=== PATIENT | male | born 1955 | race Caucasian/White ===

== ENCOUNTER 2018-09-06 11:05 | Inpatient (IN) | payer OTHER ==
[2018-09-06] MEDS ORDERED: Acetaminophen 500 MG TAB ONE (12:16)
[2018-09-06 12:20] LABS: Troponin I 0.047 ng/mL (< 0.028)
[2018-09-06] MEDS ORDERED: Ondansetron ODT 4 MG TAB SL PRN (13:53)
[2018-09-06] MEDS ORDERED: Acetaminophen 325 MG TAB PO PRN (13:53)
[2018-09-06] MEDS ORDERED: Ondansetron HCl/PF 4 MG/2 ML Vial IVP PRN ×2 (13:53→16:11)
[2018-09-06 13:59] VITALS: BMI 27.6
[2018-09-06 15:56] LABS: Troponin I 0.463 ng/mL (< 0.028)
[2018-09-06] MEDS ORDERED: Nitroglycerin 0.4 MG TAB (25 Tab Bottle) SL PRN (16:11)
[2018-09-06] MEDS ORDERED: Ibuprofen 800 MG TAB PO PRN (16:11)
[2018-09-06] MEDS ORDERED: Ondansetron ODT 4 MG TAB PO PRN (16:11)
[2018-09-06] MEDS ORDERED: cloNIDine 0.1 MG TAB PO PRN (16:11)
[2018-09-06] MEDS ORDERED: Meclizine HCl 25 MG TAB PO PRN (16:11)
[2018-09-06] MEDS ORDERED: Acetaminophen 500 MG TAB PO PRN (16:11)
[2018-09-06] MEDS ORDERED: hydrALAZINE 20 MG/ML VIAL SLOW IVP PRN (16:11)
[2018-09-06] MEDS ORDERED: Mag-Al Plus 1200 MG/1200 MG/120 MG/30 ML UDCUP PO PRN (16:12)
[2018-09-06] MEDS ORDERED: Carbidopa/Levodopa 25-250 mg Tablet PO SCH (17:00)
[2018-09-06] MEDS ORDERED: Enoxaparin Sodium 100 MG/ML SYRINGE SC SCH (17:00)
[2018-09-06] MEDS: Ketorolac Tromethamine 30 MG/ML VIAL IVP SCH ×2 (17:49→23:57)
[2018-09-06 18:51] LABS: Troponin I 3.028 ng/mL (< 0.028)
[2018-09-06] MEDS: Pregabalin 50 MG CAP PO SCH (20:19)
[2018-09-06] MEDS: Lisinopril 5 MG TAB PO SCH (20:20)
[2018-09-06] MEDS: Atorvastatin Calcium 10 MG TAB PO SCH (20:20)
[2018-09-06] MEDS: Famotidine 20 MG TAB PO SCH (20:20)
[2018-09-06] MEDS: Carbidopa/Levodopa 25-100 mg Tablet PO SCH (20:22)
[2018-09-06] MEDS: Carbidopa/Levodopa 25-250 mg Tablet PO SCH (20:29)
[2018-09-06] MEDS: Nitroglycerin 2% Ointment 1 INCH/1 GM Packet TOP SCH (21:22)
--- NOTE | 2018-09-06 22:18 | HP ---
DATE OF ADMISSION: 09/06/2018 PRIMARY CARE PHYSICIAN: Dr. Cyndy Hurt. CHIEF COMPLAINT: Chest pain. HISTORY OF PRESENT ILLNESS: This is a 62-year-old male who presents to [facility] in transfer from [facility] after presenting with chest pain. The patient states he woke up in the windows systems engineer hours approximately 2-3 a.m. with substernal ches t pain, pressure-like, rating it 6/10 with constant symptoms. The patient states he has had similar chest pain in the past and was evaluated undergoing a Cardiolite stress test in 2017 to [facility] with negative findings. The patient does admit to history of coronary artery disease, status post coronary artery bypass grafting in 2006. The patient states he has been compliant with his medi cation regimen, but does state generalized weakness over the last 2-3 days with inability to transfer from his bed to wheelchair at the halfway. The patient also admits to recent fall approximatel y 6 days prior to this evaluation while attempting to ambulate while pushing his wheelchair. The pat ient denied any loss of consciousness or head injury, but states he has had multiple falls in the [facility] due to his Parkinson's disease. The patient currently resides in [facility] over the last 3 years. The patient does admit to some reflux symptoms. No change to bowel habits with mild dysuria. No specific fever or cough noted. In the emergency room, the patient underwent general marin luation including metabolic screening showing evidence of elevated troponin ranging from 0.046-0.463. The patient received aspirin, topical nitroglycerin and Tylenol. The patient currently states pers istent chest pressure, centrally located approximately 4-5/10. PAST MEDICAL HISTORY: 1. Coronary artery disease status post coronary artery bypass grafting. 2. Advanced Parkinson's disease, status post neural stimulator. 3. History of frequent falls. 4. Generalized weakness. 5. History of myocardial infarction. 6. Hyperlipidemia. 7. Generalized seizures. 8. Depression. PAST SURGICAL HISTORY: 1. Status post coronary artery bypass grafting x5 vessels in 2006. 2. Status post brain stimulator. 3. Status post pacemaker placement. CURRENT MEDICATIONS: 1. Aspirin 81 mg 1 tab p.o. daily. 2. Lipitor 10 mg p.o. at bedtime. 3. Sinemet-CR 25/100 mg 1 tab p.o. q.4 hours. 4. Vitamin B12 1000 mcg p.o. daily. 5. Folic acid with 0.4 mg p.o. daily. 6. Ibuprofen 800 mg p.o. t.i.d. p.r.n. 7. Meclizine 12.5 mg p.o. daily p.r.n. 8. Olanzapine 2.5 mg p.o. daily. 9. Lyrica 50 mg p.o. b.i.d. ALLERGIES: BENADRYL, MORPHINE SULFATE, SEROQUEL. FAMILY HISTORY: Positive for coronary artery disease in his father. SOCIAL HISTORY: Patient resides in [facility] x3 years. Minimally ambulatory with his tory of repetitive falls. Mobilizes in a wheelchair with self transfers from bed to wheelchair. No current alcohol, tobacco or illicit drug use. REVIEW OF SYSTEMS: The following complete review of systems was negative, unless otherwise mentioned in the HPI or below: Constitutional: Weight loss or gain, ability to conduct usual activities. Sk in: Rash, itching. Eyes: Double vision, pain. ENT/Mouth: Nose bleeding, neck stiffness, pain, te nderness. Cardiovascular: Palpitations, dyspnea on exertion, orthopnea. Respiratory: Shortness of breath, wheezing, cough, hemoptysis, fever or night sweats. Gastrointestinal: Poor appetite, abdom inal pain, heartburn, nausea, vomiting, constipation, or diarrhea. Genitourinary: Urgency, frequenc y, dysuria, nocturia. Musculoskeletal: Pain, swelling. Neurologic/Psychiatric: Anxiety, depressio n. Allergy/Immunologic: Skin rash, bleeding tendency. PHYSICAL EXAMINATION: VITAL SIGNS: Currently, blood pressure 157/78, pulse 62, respiratory rate 24, temperature 98.7 degre es Fahrenheit, O2 saturation 97% on room air. GENERAL APPEARANCE: This is a 62-year-old male, alert and responsive with flat affect, in no acute distress. HEENT: Pupils are equal, round, and reactive to light and accommodation. Extraocular muscles are in tact. No scleral icterus, no conjunctival injection. Nares patent. OP is clear. Teeth in fair rep air. NECK: Supple, no cervical adenopathy, no thyromegaly, no carotid bruits, no JVD appreciated. Cervic al spine with full active and passive range of motion. No meningeal signs noted. CHEST: Lungs are clear to auscultation bilaterally. CARDIOVASCULAR: S1, S2, without noted murmur, rub or gallop. Mild tenderness to palpation in the tao bxiphoid region and anterior rib cage. Left upper chest wall with subcutaneous brain stimulator. ABDOMEN: Rounded, soft, nontender, nondistended. Bowel sounds are positive in all four quadrants. There is no hepatosplenomegaly, no abdominal bruits, no rebound or guarding appreciated. EXTREMITIES: Warm and dry with fair turgor. No clubbing, cyanosis or asymmetric edema appreciated. Pulses palpable distally at the dorsalis pedis, posterior tibial, and popliteal arteries bilaterally . Capillary refill less than 2 seconds. NEUROLOGIC: Flat affect, alert and oriented x3. Slow speech. Cranial nerves II-XII are grossly int act. The patient not observed ambulatory during this exam. PERTINENT LABORATORY AND X-RAY FINDINGS: Basic metabolic profile within normal limits. LFTs within normal limits. Troponin I ranged between 0.046-0.463. BNP 25. CBC showed a white blood cell count of 6.1, hemoglobin 16, hematocrit 48, platelet count 199 with normal differential. Portable chest x- ray dated 09/06/2018 by my interpretation shows no acute cardiopulmonary process. EKG dated 09/06/20 18 by my interpretation shows baseline artifact. Normal R-wave progression noted in the precordial l master. The rest of the EKG uninterpretable. Repeat EKG dated 09/06/2018 by my interpretation shows a sinus mechanism with heart rates in the 50s. Normal R-wave progression noted in the precordial lead s. ST-T wave changes noted in the precordial leads. ASSESSMENT AND PLAN: 1. Non-ST elevation myocardial infarction. The patient will be observed on the telemetry unit. We will initiate aspirin 325 mg daily. Lovenox 1 mg/kg subcutaneously x1 now. Consult Cardiology servi ce for consideration of left heart catheterization. The patient underwent Cardiolite stress testing in 2017 with negative findings. Transdermal nitroglycerin q.8h. Check fasting lipid profile in the a.m. 2. Unstable angina. See #1 above. Continue medical management. Consult Cardiology Service. 3. Coronary artery disease. Prior history of coronary artery bypass grafting x5 vessels. See #1 an d #2 above. Continue Lipitor 10 mg p.o. at bedtime. 4. Advanced Parkinson's disease. Resume home Sinemet and monitor clinically. General fall risk pre cautions. 5. Prophylaxis. Sequential compression devices while in bed. Pepcid 20 mg p.o. b.i.d. 6. Physical therapy evaluation for functional assessment. 7. Code status is full. Surrogate medical decision maker is patient's brother Vincent Shortspike.
[2018-09-06 22:48] LABS: Troponin I 7.644 ng/mL (< 0.028)
[2018-09-07] MEDS: Carbidopa/Levodopa 25-250 mg Tablet PO SCH ×6 (00:08→21:33)
[2018-09-07] MEDS: Carbidopa/Levodopa 25-100 mg Tablet PO SCH ×7 (00:08→22:08)
--- NOTE | 2018-09-07 01:59 | CON ---
DATE OF CONSULTATION: 09/06/2018 PRIMARY CIGARETTE CARTON SEALER: Adrianne Castañeda MD REFERRING PHYSICIAN: Ulises Aguero DO REASON FOR CARDIOLOGY CONSULTATION: [id number] myocardial infarction. HISTORY OF PRESENT ILLNESS: Mr. Cleary is a 62-year-old male with a significant history of Parkinson disease since 2006; coronary artery disease, status post CABG x5 in 2006; hypertension; and seizures. Early this morning, around 3 o'clock, the patient started having the chest pain is "li ke a baseball rolling in his chest" and it was a pressure-like chest discomfort. It was getting wors e and the area was getting bigger since 3 o'clock this morning. At this moment, he is living in [facility], and the patient's nurse noticed that the patient is really pale and find out th e patient's blood pressure was high at 197/95. The nurse attempted to check the patient's vital sign s for several times and the nurse called the attending doctor during that time, and the patient was s uggested to transfer to the emergency department at [place] for further evaluation and treatment . The patient was transferred to the [facility] at [place] for further evaluation and treatme nt. The patient received nitroglycerin in the intermediate, which did not help him much to improve h is symptoms. During the episode, the patient denies shortness of breath, dizziness, lightheadedness, the pain radiating to the left upper extremity, nausea, vomiting, or any other cardiac complaints. During the initial Cardiology consult, the patient continued to complain of pressure-like discomfort in his substernal area although the patient received IV pain medicine and nitroglycerin paste on his chest. The pain does not change with movement, deep breath, or cough. Again, the patient denied any other cardiac complaints at this moment. He had a history of coronary artery disease, status post CABG x5 in 2006. At this moment, the patien t reported that he noted that his dementia was getting worse for the last couple weeks and he cannot remember when the last time he followed up with the rn visiting. He had some device placement in hi s chest according to his chest x-ray, some stimulator, but not the pacemaker; and he recalled that he had a stimulator placement in his chest. PAST MEDICAL HISTORY: Significant for Parkinson's disease since 2006, BPH, erectile dysfunction, cor onary artery disease, CABG x5 in 2006, hyperlipidemia, seizure, hypertension, and major depression. PAST SURGICAL HISTORY: 1. Coronary artery bypass grafting x5 in 2006. He said he had a procedure in the [facility] 2. Brain stimulator implantation, 2 in the head and 1 in his chest; however, those stimulator was re moved from his head shortly after the placement per patient report. PSYCHIATRIC HISTORY: Depression; mood swing; and he sometime has suicide thought, but not at this mo ment. FAMILY HISTORY: Significant for coronary artery disease in his paternal side. The patient's father due to the CA at the age of 47. The patient's mother has a history of Alzheimer. SOCIAL HISTORY: He is . He has one son, who lives well. He denied tobacco, ETOH, or illici t drug abuse. He is living in [facility] at this moment. ALLERGIES: The patient is allergic to BENADRYL, MORPHINE, and SEROQUEL. HOME MEDICATIONS: Ibuprofen 800 mg every 8 hours p.r.n., meclizine 12.5 mg daily as needed, vitamin B12 1000 mcg 1 tablet once a day, Lipitor 10 mg once a day, Lyrica 50 mg twice a day, olanzapine 2.5 mg once a day, folic acid 0.4 mg once a day, carbidopa/levodopa 1 tablet every 4 hours p.o., as pirin 81 mg once a day. REVIEW OF SYSTEMS: Review of systems was negative, unless otherwise mentioned in the HPI or below. The patient complained of inability to clear his throat due to the worsening of the Parkinson's disea se and also constipation. The patient has a stimulator in his brain and chest. He has a history of frequent falls 3-4 times a week couple months ago; however, since the patient's medication was change d, he have not fell since 4 weeks ago. PHYSICAL EXAMINATION: VITAL SIGNS: Blood pressure 157/78, temperature 98.7, pulse 62, respiratory rate 24, O2 saturation 9 7% with room air. GENERAL: The patient is alert, oriented x4, slow to respond, but the patient is able to follow comma nds and answer questions appropriately. HEAD: Atraumatic and normocephalic. They have a scar to the frontal lobe, which is healed. EYES: Extraocular muscle movement intact. ENT: No mass. Nasal and oral mucosa are moist without lesion. NECK: Supple. Normal range of motion. No JVD. RESPIRATORY: Clear to auscultate bilaterally, but diminished at the bases. CARDIOVASCULAR: Regular rhythm and rate. Normal S1, S2. There were no S3, S4. No murmur, hives, t hrill noted. There are 2+ pulses in bilateral lower extremities. No edema. Carotid pulses are pres ent. No bruits or thrill noticed. MUSCULOSKELETAL: The patient is able to move all extremities, but slow to respond. ABDOMEN: Hypoactive bowel sounds. Nontender. No mass to palpate. SKIN: Warm and dry. No erythema, lesion, or bruise noted. NEUROLOGIC: Nonfocal. PSYCHIATRIC: Normal mood. Normal affect. Alert, oriented x4. LABORATORY DATA: WBC 6.1, hemoglobin 6.2, hematocrit 48.4, platelet 199. Sodium 144, potassium 4.3, BUN 19, creatinine 0.86, glucose 144, AST 11, ALT less than 7, CK-MB 0.4. Troponin is 0.047 and 0.4 63. The patient had a stress test done in 01/2017, which shows normal myocardial perfusion study wit h no evidence of ischemia with EF 73%. Chest x-ray was done on 09/06/2018, which showed no acute int rathoracic disease. ASSESSMENT AND PLAN: 1. Elevated troponin level with chest pain. Although, the patient's troponin level is increased to 0.4, the second one; the third one is almost . At this moment, we would like to continue to mon itor. We would like to continue medical treatment only due to the worsening of Parkinson's disease a nd dementia. The patient's 12-lead EKG in the ER shows no ST-segment change or T-wave depression. W e would like to continue to monitor on the telemetry. 2. Coronary artery disease with a history of coronary artery bypass grafting x5 in 2006. The patien t is not on beta vinicio, KEN inhibitor, or ARB at this moment. The beta vinicio is on hold due to b radycardia; however, we might able to like to start KEN inhibitor or ARB for his blood pressure manag ement. 3. Hypertension. We would like to start some blood pressure medicine. I like to start lisinopril i n this patient. 4. Hyperlipidemia. He is on Lipitor 10 mg once a day. 5. Parkinson's disease, at this moment, which is managed by primary care doctor. 6. History of multiple falls. The patient was strongly advised to call for any assistance when the patient liked to get up. Thank you very much for allowing the Cardiology Service to participate in the care of this patient. We will follow along with Patient Care Team and make further recommendations as appropriate.
[2018-09-07 04:21] LABS: Anion Gap 11 mmol/L (10-20); BUN (Urea Nitrogen) 25 mg/dL (8.4-25.7); Calc. Creatinine Clearance 121 mL/min (70-130); Calcium 8.6 mg/dL (7.8-10.44); Carbon Dioxide 25 mmol/L (23-31); Cardiac Risk 4.6 (Less than 4.5); Chloride 110 mmol/L (98-107); Cholesterol 151 mg/dl (< 200 Desired); Estimated GFR-MDRD Greater than 90; Glucose 121 mg/dL (80-115); HDL Cholesterol 33 mg/dL (>60 Neg Risk); LDL Cholesterol, Calculated 99 mg/dL; Potassium 3.8 mmol/L (3.5-5.1); Sodium 142 mmol/L (136-145); Triglycerides 96 mg/dL (Less than 150)
[2018-09-07] MEDS: Ketorolac Tromethamine 30 MG/ML VIAL IVP SCH ×4 (04:28→23:05)
[2018-09-07 04:35] LABS: Free T4 (Free Thyroxine) 0.82 ng/dL (0.70-1.48); Thyroid Stimulating Hormone 0.4934 uIU/mL (0.35-4.94)
[2018-09-07 05:11] LABS: Band 6 % (5-11); Eosinophils 2 % (0-10); Lymphocytes 25 % (21-51); MDiff Complete? YES; Mean Corpuscular Hemoglobin 31.2 pg (27.0-31.0); Mean Corpuscular Volume 94.7 fL (78.0-98.0); Mean Platelet Volume 7.7 fL (7.4-10.4); Monocytes 8 % (0-10); Myelocyte 1 % (0-0); Neutrophil 58 % (42-75); Platelet Count 202 thou/uL (130-400); RBC Distribution Width 12.2 % (11.5-14.5); Red Blood Cell (RBC) Count 4.79 mill/uL (4.70-6.10)
[2018-09-07] MEDS: Nitroglycerin 2% Ointment 1 INCH/1 GM Packet TOP SCH ×3 (06:31→22:04)
--- NOTE | 2018-09-07 08:34 | ADD-CON ---
ADDENDUM Please refer to the notes already dictated by the nurse practitioner, Lara Prasad NP DATE OF CONSULTATION: 09/06/2018 INDICATION FOR CONSULTATION: This is a 62-year-old gentleman with history of coronary artery disease , who underwent bypass surgery in 07/[address] Roland with 5-vessel bypass with a GUTIERREZ to the left anterior descending artery and saphenous vein graft to the ramus, intermediate branch, a saphenous ve in graft to the first obtuse marginal branch or to the obtuse marginal branch of left circumflex unce rtain of which one, and also saphenous vein graft to the distal right coronary artery and also saphen ous vein graft to the RV marginal branch from the right coronary artery. This gentleman has diabetes , hypercholesterolemia. He has been noncompliant with followups. He resides in an assisted living [facility] longterm. He has Parkinson's disease. He has been noncompliant with his followups since even then before his bypass surgery. He has apparently not seen a special needs babysitter except when he has been in the hospital. I believe he was last seen by Dr. German in 2010 when he was in the hospital here a t that time. He has also had some question of some sick sinus syndrome. At this time, he was admitt ed again due to having episodes of chest discomfort. His troponin I on admission was 0.046, but has increased up to 0.047, then again increased to 0.46 and then increased up to 3.028. His BNP is 24. The CPK MB is negative for any evidence of infarction. His EKG is unremarkable for any evidence of a cute changes. He does have Parkinson's disease and baseline is somewhat distorted; however, there is no indication that there is any ST segment elevation. His chest discomfort is improved, he has nitr oglycerin paste in place and he has significant Parkinson's disease. He is able to communicate; andrews robert, but mainly is in a wheelchair at the assisted living facility and takes medications for the Park inson's disease. He also has a brain stimulator which has been implanted. I did not know if it has been checked recently or how the function of this is still working or not. At this time, he said he has minimal chest discomfort, is almost completely resolved. He has nitroglycerin paste on the surfa ce of the skin. PAST MEDICAL HISTORY: Significant for coronary artery disease, bypass surgery, hypercholesterolemia, hypertension, type 2 diabetes. He has had a spider bite in 1993, which required drainage and incisi ons over the next 3 years. He also had a history of cerebral vascular disease. He has Parkinson's d isease. He has type 2 diabetes as well as hypertension. He is noncompliant with his followups in e office due to some of the medications also he has been noncompliant in the past, most likely due to financial restraints. However, at this time, he apparently has Medicaid and should be able to affor d these medications. As far as his social history, family history, review of systems, please refer to the notes dictated b y the nurse practitioner. PHYSICAL EXAMINATION: GENERAL: Reveals a middle-aged gentleman who appears older than his stated age. VITAL SIGNS: His blood pressure is elevated this evening at 157/78, earlier was 187/86. He is afebr ile at 98.7, respiratory rate 24, O2 saturation 97%, heart rate is 62 and regular. HEENT: Shows head to be normocephalic and atraumatic. His carotids are present. CHEST: Clear to auscultation. I did not hear any rales, rhonchi or wheezing. CARDIOVASCULAR: Exam reveals a regular rate and rhythm. There were no gross murmurs. ABDOMEN: Soft and nontender. He has well-healed midline surgical incision over the mid chest area a fter bypass surgery. He also has a well-healed surgical incision over what appears to be the device for his brain stimulation underneath the left infraclavicular area with the wires going up to the lef t neck in the venous system. EXTREMITIES: Show no clubbing, cyanosis or edema. Pedal pulses are present. He has well-healed augusto gical incisions after his saphenous vein graft retrieval. NEUROLOGIC: The patient has obvious Parkinson's disease, has difficulty even to speak and was not ab le to get out of bed for further evaluation. SKIN: Warm and dry. LABORATORY DATA: Shows a creatinine of 0.86 with a BUN 19, potassium was 4.3. Troponin I's are note d above. WBC is 6.1. Hemoglobin 16.2. IMPRESSION: 1. Probable non-ST segment elevation myocardial infarction in elderly gentleman with multiple medica l problems including Parkinson's disease in a patient who is status post bypass surgery, it is quite possible that one of his bypass grafts have occluded or he has further progression of his disease. Kacey mathew has not had followup routinely and has not seen a special needs babysitter for many years. Previously, he was followed by Antonio. I have discussed with him the possibility of proceeding with a cardiac catheterization or medical management. We will continue to follow the enzymes and since his chest pa in is decreased and almost nonexistent now with his other multiple medical problems, we will see whet her or not the enzymes continue to trend upwards or not and if so, he may need eventually undergo [facility]. At this time, we will try to treat him medically. 2. History of hypertension. This is slightly elevated at this time. We may need to readjust his me dications or increase some of the doses of his medications or add further nitrates in this gentleman. I do not see that he has been routinely taking beta blockers and if he is able tolerate this medica tion, we may need to add a beta vinicio for this gentleman. 3. History of diabetes. Blood sugar is slightly elevated, but relatively good control at this time. 4. Hypertension. 5. Hypercholesterolemia. Most likely, he would be able to continue his medications with the atorvas tatin at 10 mg a day. 6. Parkinson's disease. He is to continue his medications and we will see whether or not we can hav e his brain stimulator interrogated. We will be happy to continue to follow this patient with you.
[2018-09-07] MEDS: OLANZapine 2.5 MG TAB PO SCH (08:51)
[2018-09-07] MEDS: Cyanocobalamin (Vitamin B-12) 1,000 MCG TAB PO SCH (08:52)
[2018-09-07] MEDS: Carvedilol 3.125 MG TAB PO SCH ×2 (08:52→16:13)
[2018-09-07] MEDS: Folic Acid 1 MG TAB PO SCH (08:52)
[2018-09-07] MEDS: Aspirin 325 MG TAB PO SCH (08:52)
[2018-09-07] MEDS: Famotidine 20 MG TAB PO SCH ×2 (08:52→22:01)
[2018-09-07] MEDS: Pregabalin 50 MG CAP PO SCH ×2 (08:53→22:03)
--- NOTE | 2018-09-07 10:19 | PDOC.EVN ---
Event Note - Event Note Event Note: discussed with Angel FLYNN, agree with plan.
--- NOTE | 2018-09-07 11:00 | PDOC.CTH ---
Cardiology Progress Note - Subjective Pt. seen and eval. by me. He had another episode this AM of chest discomfort. Now only mild pressure. Troponin I is positive for a NSTEMI. I have discussed the possibility of a cardiac cath. He likely has diffuse disease and likely graft occlusion. It is likely that his disease has progressed since his CABG. I discussed his noncompliance as this will be an issue if any intervention is performed. It may be best to treat him medically. I will resume the lovenox and if he does not stabilize then plan for cardiac cath. - ROS chest pain - Objective Vital Signs Temp Pulse Resp BP Pulse Ox 09/07/18 07:00 97.6 F 54 L 20 116/68 92 L 09/07/18 04:04 97.6 F 58 L 20 98/53 L 94 L 09/06/18 23:22 98.5 F 58 L 12 150/79 H 93 L Weight 192 lb 6.4 oz 09/06/18 09/07/18 09/08/18 06:59 06:59 06:59 Intake Total 1120 Output Total 200 Balance 920 - Physical Examination General/Neuro: alert & oriented x3 Neck: no JVD present Lungs: CTA Heart: RRR Abdomen: NT/ND, soft - Telemetry Telemetry Rhythm: NSR - Labs Result Diagrams: 09/07/18 03:39 09/07/18 03:39 Troponin/CKMB Troponin I 7.644 ng/mL (< 0.028) H* 09/06/18 22:00 Labs: troponin - Assessment/Plan 1.NSTEMI: I will plan for a cardiac cath in AM if he continues to have an increase in chest discomfort and Troponin I. His multiple medical problems and Parkinson's disease are factors to be considered as possible contraindications to a cardiac cath. 2. CAD/ s/p CABG 3. Parkinsom's dz. continue meds. 4. hx. of seizures. 4. Dyslipidemia.
--- NOTE | 2018-09-07 11:04 | PDOC.PN ---
- Subjective Encounter Start Date: 09/07/18 Encounter Start Time: 11:01 Subjective: Patient reported some chest tightness this morning which improved after a -: dose of toradol. He states pain feels like "a fist in his chest pushing on -: his heart." Troponin have been trending up. He denies any further symptoms - Objective Resuscitation Status: Resuscitation Status FULL:Full Resuscitation MAR Reviewed: Yes Vital Signs & Weight: Vital Signs (12 hours) Temp Pulse Resp BP Pulse Ox 09/07/18 07:00 97.6 F 54 L 20 116/68 92 L 09/07/18 04:04 97.6 F 58 L 20 98/53 L 94 L 09/06/18 23:22 98.5 F 58 L 12 150/79 H 93 L Weight Weight 192 lb 6.4 oz I&O: 09/06/18 09/07/18 09/08/18 06:59 06:59 06:59 Intake Total 1120 Output Total 200 Balance 920 Result Diagrams: 09/07/18 03:39 09/07/18 03:39 EKG Reviewed by me: Yes Phys Exam - Physical Examination Constitutional: NAD HEENT: PERRLA, moist MMs, sclera anicteric Neck: no nodes, no JVD, supple Respiratory: no wheezing, no rales, no rhonchi, clear to auscultation bilateral Cardiovascular: RRR, no significant murmur, no rub Gastrointestinal: soft, non-tender, no distention, positive bowel sounds Musculoskeletal: no edema, pulses present Neurological: normal sensation, moves all 4 limbs Dyskinesia noted Lymphatic: no nodes Psychiatric: normal affect, A&O x 3 Skin: no rash, normal turgor, cap refill <2 seconds Dx/Plan (1) Hyperlipidemia Code(s): E78.5 - HYPERLIPIDEMIA, UNSPECIFIED Status: Acute (2) Hypertension Code(s): I10 - ESSENTIAL (PRIMARY) HYPERTENSION Status: Acute (3) Parkinsons disease Code(s): G20 - PARKINSON'S DISEASE Status: Acute (4) NSTEMI (non-ST elevated myocardial infarction) Code(s): I21.4 - NON-ST ELEVATION (NSTEMI) MYOCARDIAL INFARCTION Status: Acute - Plan cont current plan of care, PT/OT, DVT proph w/lovenox Patient changed to inpatient status due to NSTEMI -: Cardiology services following continuing with medical management -: Cardiology plan for possible [facility] 09/08/2018 -: Consult Neurology placed for history of Parkinson disease, order PT/OT -: Symptomatic treatment * .
[2018-09-07] MEDS ORDERED: Enoxaparin Sodium 100 MG/ML SYRINGE SC SCH (11:15)
[2018-09-07] MEDS ORDERED: Communication Order-Pharmacy FS SCH (11:15)
[2018-09-07 11:22] LABS: Troponin I 11.434 ng/mL (< 0.028)
[2018-09-07] MEDS ORDERED: Ziprasidone 20 MG VIAL IM PRN (17:14)
[2018-09-07] MEDS ORDERED: Sterile Water 10 ML VIAL FS PRN (17:14)
--- NOTE | 2018-09-07 21:53 | CON ---
DATE OF CONSULTATION: 09/07/2018 CONSULTING PHYSICIAN: Hospitalist service. IMPRESSION: 1. End-stage Parkinson's disease with secondary dementia and delirium. 2. Acute myocardial infarction. PLAN: 1. Geodon 10-20 mg IM as needed for agitation q.12 hours. 2. Continue prior home medications. Mr. Cleary has been a longtime patient of mine with fairly severe Parkinson's. He has also had a d eep brain stimulator implanted to try to improve his symptoms, which was unsuccessful. He has been o n doses of Sinemet for maintenance of his condition. He has essentially been wheelchair bound for th e most part for the last year. He has been living in a halfway. His delirium flared up the las t time he was hospitalized. He apparently has been delirious again during this hospitalization. He is resting now and has not received any sedation. I would suggest he continue his prior home meds an d we can use Geodon to help manage the agitation until he can return back to the halfway.
[2018-09-07] MEDS: Atorvastatin Calcium 10 MG TAB PO SCH (22:01)
[2018-09-07] MEDS: Enoxaparin Sodium 100 MG/ML SYRINGE SC SCH (22:01)
[2018-09-07] MEDS: Lisinopril 5 MG TAB PO SCH (22:02)
[2018-09-08] MEDS: Nitroglycerin 2% Ointment 1 INCH/1 GM Packet TOP SCH ×4 (01:24→21:53)
[2018-09-08] MEDS: Carbidopa/Levodopa 25-100 mg Tablet PO SCH ×7 (01:28→21:57)
[2018-09-08] MEDS: Cyanocobalamin (Vitamin B-12) 1,000 MCG TAB PO SCH ×2 (05:57→05:58)
[2018-09-08] MEDS: Aspirin 325 MG TAB PO SCH (05:57)
[2018-09-08] MEDS: Famotidine 20 MG TAB PO SCH ×2 (05:57→21:51)
[2018-09-08] MEDS: Folic Acid 1 MG TAB PO SCH (05:57)
[2018-09-08] MEDS: Ketorolac Tromethamine 30 MG/ML VIAL IVP SCH ×3 (05:58→17:06)
[2018-09-08] MEDS: Carvedilol 3.125 MG TAB PO SCH ×2 (05:58→17:06)
[2018-09-08] MEDS: Enoxaparin Sodium 100 MG/ML SYRINGE SC SCH (05:59)
[2018-09-08] MEDS: OLANZapine 2.5 MG TAB PO SCH (05:59)
[2018-09-08] MEDS: Pregabalin 50 MG CAP PO SCH ×2 (06:02→21:52)
--- NOTE | 2018-09-08 07:23 | PDOC.PN ---
- Subjective Encounter Start Date: 09/08/18 Encounter Start Time: 07:21 Subjective: resting comfortably - Objective Resuscitation Status: Resuscitation Status FULL:Full Resuscitation MAR Reviewed: Yes Vital Signs & Weight: Vital Signs (12 hours) Temp Pulse Resp BP Pulse Ox 09/08/18 03:12 97.6 F 57 L 18 138/80 92 L 09/08/18 00:00 97.8 F 51 L 20 152/74 H 94 L 09/07/18 22:02 54 L 09/07/18 20:00 96.7 F L 52 L 20 115/57 L 92 L Weight Weight 192 lb 6.4 oz I&O: 09/07/18 09/08/18 09/09/18 06:59 06:59 06:59 Intake Total 1120 Output Total 200 Balance 920 Result Diagrams: 09/07/18 03:39 09/07/18 03:39 Phys Exam - Physical Examination Neck: no JVD Respiratory: clear to auscultation bilateral Cardiovascular: RRR, no significant murmur Gastrointestinal: soft, non-tender, positive bowel sounds Musculoskeletal: no edema, pulses present Dx/Plan (1) NSTEMI (non-ST elevated myocardial infarction) Code(s): I21.4 - NON-ST ELEVATION (NSTEMI) MYOCARDIAL INFARCTION Status: Acute (2) Hyperlipidemia Code(s): E78.5 - HYPERLIPIDEMIA, UNSPECIFIED Status: Chronic Qualifiers: Hyperlipidemia type: unspecified Qualified Code(s): E78.5 - Hyperlipidemia , unspecified (3) Hypertension Code(s): I10 - ESSENTIAL (PRIMARY) HYPERTENSION Status: Chronic Qualifiers: Hypertension type: essential hypertension Qualified Code(s): I10 - Essential (primary) hypertension (4) Parkinsons disease Code(s): G20 - PARKINSON'S DISEASE Status: Chronic - Plan cardiac cath today, fu postop * .
[2018-09-08] MEDS ORDERED: Iopamidol 370 76% 50 ML VIAL FS ONE (09:29)
[2018-09-08] MEDS ORDERED: Iopamidol 370 76% 100 ML VIAL ONE (09:29)
[2018-09-08 10:09] LABS: Troponin I 22.094 ng/mL (< 0.028)
[2018-09-08 12:21] LABS: Hemoglobin 16.5 g/dL (14.0-18.0); Platelet Count 184 thou/uL (130-400)
[2018-09-08 12:24] LABS: Calc. Creatinine Clearance 122 mL/min (70-130); Estimated GFR-MDRD Greater than 90
--- NOTE | 2018-09-08 14:10 | EKG ---
Test Reason : Blood Pressure : / mmHG Vent. Rate : 055 BPM Atrial Rate : 055 BPM P-R Int : 160 ms QRS Dur : 078 ms QT Int : 450 ms P-R-T Axes : 044 -08 048 degrees QTc Int : 430 ms Sinus bradycardia Abnormal ECG Confirmed by CHRISTOPHER VANCE DO ([id number]), script editor LUIS PERRY ([id number]) on 09/08/2018 2:10:33 PM Referred By: Confirmed By:CHRISTOPHER VANCE DO
[2018-09-08] MEDS ORDERED: Lidocaine 1% (PF) 30 ML VIAL ONE (14:27)
[2018-09-08] MEDS ORDERED: Midazolam HCl 2 mg/2 ml Vial ONE (15:30)
[2018-09-08] MEDS ORDERED: Sodium Chloride 0.9% 200 ML IV SCH (16:53)
[2018-09-08] MEDS ORDERED: Acetaminophen/Codeine 30-300mg Tablet PO PRN ×2 (16:53)
[2018-09-08] MEDS ORDERED: Nitroglycerin 0.4 MG TAB (25 Tab Bottle) SL PRN (16:53)
[2018-09-08] MEDS ORDERED: traMADol HCl 50 MG TAB PO PRN (16:53)
[2018-09-08] MEDS ORDERED: Clopidogrel Bisulfate 75 MG TAB PO SCH ×2 (17:00→18:15)
[2018-09-08] MEDS: Atorvastatin Calcium 10 MG TAB PO SCH (21:51)
[2018-09-08] MEDS: Lisinopril 5 MG TAB PO SCH (21:51)
[2018-09-09] MEDS: Ketorolac Tromethamine 30 MG/ML VIAL IVP SCH ×4 (00:05→17:42)
[2018-09-09] MEDS: Carbidopa/Levodopa 25-100 mg Tablet PO SCH ×6 (02:04→20:24)
[2018-09-09] MEDS: Nitroglycerin 2% Ointment 1 INCH/1 GM Packet TOP SCH (05:37)
--- NOTE | 2018-09-09 07:31 | PDOC.PN ---
- Subjective Encounter Start Date: 09/09/18 Encounter Start Time: 07:30 Subjective: no chest pain, etc - Objective Resuscitation Status: Resuscitation Status FULL:Full Resuscitation MAR Reviewed: Yes Vital Signs & Weight: Vital Signs (12 hours) Temp Pulse Resp BP BP Pulse Ox 09/09/18 04:09 98.9 F 57 L 20 114/78 92 L 09/09/18 00:00 97.6 F 59 L 19 134/67 92 L 09/08/18 21:51 66 134/71 09/08/18 20:00 99 09/08/18 19:48 98.4 F 66 20 153/67 H 100 Weight Weight 191 lb 9.6 oz I&O: 09/08/18 09/09/18 09/10/18 06:59 06:59 06:59 Intake Total 340 Output Total 300 Balance 40 Result Diagrams: 09/08/18 11:46 09/08/18 11:46 Phys Exam - Physical Examination Neck: no JVD Respiratory: clear to auscultation bilateral Cardiovascular: RRR, no significant murmur Gastrointestinal: soft, positive bowel sounds Musculoskeletal: no edema Dx/Plan (1) NSTEMI (non-ST elevated myocardial infarction) Code(s): I21.4 - NON-ST ELEVATION (NSTEMI) MYOCARDIAL INFARCTION Status: Acute (2) Hyperlipidemia Code(s): E78.5 - HYPERLIPIDEMIA, UNSPECIFIED Status: Chronic Qualifiers: Hyperlipidemia type: unspecified Qualified Code(s): E78.5 - Hyperlipidemia , unspecified (3) Hypertension Code(s): I10 - ESSENTIAL (PRIMARY) HYPERTENSION Status: Chronic Qualifiers: Hypertension type: essential hypertension Qualified Code(s): I10 - Essential (primary) hypertension (4) Parkinsons disease Code(s): G20 - PARKINSON'S DISEASE Status: Chronic - Plan discuss Tx with GRETCHEN Brian * .
[2018-09-09] MEDS: Folic Acid 1 MG TAB PO SCH (09:21)
[2018-09-09] MEDS: Clopidogrel Bisulfate 75 MG TAB PO SCH (09:22)
[2018-09-09] MEDS: Carvedilol 3.125 MG TAB PO SCH ×2 (09:22→17:41)
[2018-09-09] MEDS: Pregabalin 50 MG CAP PO SCH ×2 (09:22→20:23)
[2018-09-09] MEDS: Aspirin 325 MG TAB PO SCH (09:22)
[2018-09-09] MEDS: Cyanocobalamin (Vitamin B-12) 1,000 MCG TAB PO SCH (09:23)
[2018-09-09] MEDS: Famotidine 20 MG TAB PO SCH ×2 (09:23→20:23)
[2018-09-09] MEDS: OLANZapine 2.5 MG TAB PO SCH (09:24)
--- NOTE | 2018-09-09 12:36 | PDOC.CTH ---
<Lara Prasad - Last Filed: 09/09/18 12:37> Cardiology Progress Note - Subjective The pt seen and examined. No overnight events. No cardiac complaints. He is confused. - Objective Vital Signs Temp Pulse Resp BP Pulse Ox 09/09/18 08:04 97 F L 53 L 16 105/61 94 L 09/09/18 04:09 98.9 F 57 L 20 114/78 92 L Weight 191 lb 9.6 oz 09/08/18 09/09/18 09/10/18 06:59 06:59 06:59 Intake Total 340 Output Total 300 Balance 40 - Physical Examination Lungs: CTA Heart: RRR Abdomen: soft Extremities: other: (No edema) - Telemetry Telemetry Rhythm: SR 60s - Labs Result Diagrams: 09/08/18 11:46 09/08/18 11:46 Troponin/CKMB Troponin I 22.094 ng/mL (< 0.028) H* 09/08/18 09:30 - Assessment/Plan 1. NSTEMI: S/p LHC on 09/08/18 showed 4/5 graft occluded, 75% stenosis in mid JOAQUIN and patent GUTIERREZ-LAD, EF 35-40% and global hypokinesis. His multiple medical problems and Parkinson's disease are factors to be considered as possible contraindications to CABG. 2. CAD/ s/p CABG: Stop NTG paste and change to Imdur 60mg qd. On Ranexa 500mg BID. 3. HTN: stable 4. Parkinsom's dz: continue meds. Recommend to interrogate his Stimulation device. 5. hx. of seizures. 6. Dyslipidemia: Increase Lipitor from 10mg to 20mg for LDL 99 (should be less than 70) MAR reviewed Review of Systems - Review of Systems Constitutional: reports: no symptoms reported EENTM: reports: no symptoms reported Respiratory: reports: no symptoms reported Cardiac (ROS): reports: no symptoms reported ABD/GI: reports: no symptoms reported : reports: no symptoms reported Musculoskeletal: reports: no symptoms reported <Wilmer Castañeda - Last Filed: 09/09/18 18:48> Cardiology Progress Note - Objective Vital Signs Temp Pulse Resp BP Pulse Ox 09/09/18 15:48 97.6 F 90 16 116/75 94 L 09/09/18 12:03 97.7 F 75 16 117/65 94 L 09/09/18 08:04 97 F L 53 L 16 105/61 94 L Weight 191 lb 9.6 oz 09/08/18 09/09/18 09/10/18 06:59 06:59 06:59 Intake Total 340 800 Output Total 300 400 Balance 40 400 - Labs Result Diagrams: 09/08/18 11:46 09/08/18 11:46 Troponin/CKMB Troponin I 22.094 ng/mL (< 0.028) H* 09/08/18 09:30 - Assessment/Plan Pt. seen and eval. by me. i agree with the A/P by the EDUCATIONAL FUNDRAISING DIRECTOR but he is less confused this PM. He answered my questions appropriately. He denies chest pain. S/P NSTEMI. He has 4/5 bypasses occluded. The GUTIERREZ to the LAD is patent without stenosis. He was started on Ranexa yesterday. He can be d/c'd back to the [facility] tomorrow. In the next few weeks he can be seen in the office / If he is having symptoms I could attemtp to place a stent in the prox. L-Circ and the ramus intermedius.
--- NOTE | 2018-09-09 18:19 | PDOC.EVN ---
Event Note - Event Note Event Note: Discussed with Dr Castañeda, medicine adjustments made, possible DC in am, 09/10
[2018-09-09] MEDS: Atorvastatin Calcium 20 MG TAB PO SCH (20:24)
[2018-09-09] MEDS: Lisinopril 5 MG TAB PO SCH (20:30)
[2018-09-10] MEDS: Ketorolac Tromethamine 30 MG/ML VIAL IVP SCH ×4 (00:05→17:37)
[2018-09-10] MEDS: Carbidopa/Levodopa 25-100 mg Tablet PO SCH ×6 (03:30→21:17)
--- NOTE | 2018-09-10 08:32 | PDOC.CTH ---
<Lara Prasad - Last Filed: 09/10/18 08:30> Cardiology Progress Note - Objective Vital Signs Temp Pulse Resp BP Pulse Ox 09/10/18 02:57 97.9 F 59 L 20 129/62 95 09/09/18 23:53 103/56 L Weight 194 lb 8 oz 09/09/18 09/10/18 09/11/18 06:59 06:59 06:59 Intake Total 340 962 Output Total 300 825 Balance 40 137 - Labs Result Diagrams: 09/08/18 11:46 09/08/18 11:46 Troponin/CKMB Troponin I 22.094 ng/mL (< 0.028) H* 09/08/18 09:30 - Assessment/Plan 1. NSTEMI: S/p LHC on 09/08/18 showed 4/5 graft occluded, 75% stenosis in mid JOAQUIN and patent GUTIERREZ-LAD, EF 35-40% and global hypokinesis. His multiple medical problems and Parkinson's disease are factors to be considered as possible contraindications to CABG. On Ranexa. 2. CAD/ s/p CABG: Stop NTG paste and change to Imdur 60mg qd. On Ranexa 500mg BID. 3. HTN: stable 4. Parkinsom's dz: continue meds. Recommend to interrogate his Stimulation device. 5. hx. of seizures. 6. Dyslipidemia: Increase Lipitor from 10mg to 20mg for LDL 99 (should be less than 70) MAR reviewed * From Cardiac standpoint, the pt is stable to tx back to [facility]. In the next few weeks he can be seen in the office / If he is having symptoms, then possible place a stent in the prox. L-Circ and the ramus intermedius. <Wilmer Castañeda - Last Filed: 09/10/18 19:56> Cardiology Progress Note - Objective Vital Signs Temp Pulse Pulse Pulse Resp BP BP 09/10/18 16:14 97.7 F 62 16 09/10/18 14:00 56 L 58 L 102/59 L 100/55 L 09/10/18 11:15 98.2 F 61 16 09/10/18 08:30 98 F 53 L 14 BP Pulse Ox 09/10/18 16:14 109/59 L 97 09/10/18 14:00 09/10/18 11:15 110/72 95 09/10/18 08:30 104/57 L 98 Weight 194 lb 8 oz 09/09/18 09/10/18 09/11/18 06:59 06:59 06:59 Intake Total 340 962 500 Output Total 300 825 100 Balance 40 137 400 - Labs Result Diagrams: 09/10/18 10:20 09/10/18 10:20 Troponin/CKMB Troponin I 22.094 ng/mL (< 0.028) H* 09/08/18 09:30 - Assessment/Plan pt. seen and eval. by me. I agree with the A/P by the PIANO PROFESSOR. He denies any chest pain. Chest clear. RRR.
[2018-09-10] MEDS: Pregabalin 50 MG CAP PO SCH ×2 (09:47→21:16)
[2018-09-10] MEDS: Folic Acid 1 MG TAB PO SCH (09:47)
[2018-09-10] MEDS: Aspirin 325 MG TAB PO SCH (09:47)
[2018-09-10] MEDS: Clopidogrel Bisulfate 75 MG TAB PO SCH (09:48)
[2018-09-10] MEDS: Cyanocobalamin (Vitamin B-12) 1,000 MCG TAB PO SCH (09:48)
[2018-09-10] MEDS: Famotidine 20 MG TAB PO SCH ×2 (09:48→21:15)
[2018-09-10] MEDS: Carvedilol 3.125 MG TAB PO SCH ×2 (09:48→17:37)
[2018-09-10] MEDS: OLANZapine 2.5 MG TAB PO SCH (09:49)
[2018-09-10 10:29] LABS: Hemoglobin 14.5 g/dL (14.0-18.0); Platelet Count 181 thou/uL (130-400)
--- NOTE | 2018-09-10 17:04 | PDOC.PN ---
- Subjective Encounter Start Date: 09/10/18 Encounter Start Time: 12:30 Subjective: pt up in bed no complains - Objective Resuscitation Status: Resuscitation Status FULL:Full Resuscitation Vital Signs & Weight: Vital Signs (12 hours) Temp Pulse Pulse Pulse Resp BP BP 09/10/18 16:14 97.7 F 62 16 09/10/18 14:00 56 L 58 L 102/59 L 100/55 L 09/10/18 11:15 98.2 F 61 16 09/10/18 08:30 98 F 53 L 14 BP Pulse Ox 09/10/18 16:14 109/59 L 97 09/10/18 14:00 09/10/18 11:15 110/72 95 09/10/18 08:30 104/57 L 98 Weight Weight 194 lb 8 oz I&O: 09/09/18 09/10/18 09/11/18 06:59 06:59 06:59 Intake Total 340 962 Output Total 300 825 Balance 40 137 Result Diagrams: 09/10/18 10:20 09/10/18 10:20 Phys Exam - Physical Examination Neck: no nodes, no JVD, supple, full ROM Respiratory: no wheezing, no rales, no rhonchi, wheezing present, clear to auscultation bilateral Cardiovascular: RRR, no significant murmur, no rub, gallop, irregular Gastrointestinal: soft, non-tender, no distention, positive bowel sounds Dx/Plan (1) NSTEMI (non-ST elevated myocardial infarction) Code(s): I21.4 - NON-ST ELEVATION (NSTEMI) MYOCARDIAL INFARCTION Status: Acute (2) Hyperlipidemia Code(s): E78.5 - HYPERLIPIDEMIA, UNSPECIFIED Status: Chronic Qualifiers: Hyperlipidemia type: unspecified Qualified Code(s): E78.5 - Hyperlipidemia , unspecified (3) Hypertension Code(s): I10 - ESSENTIAL (PRIMARY) HYPERTENSION Status: Chronic Qualifiers: Hypertension type: essential hypertension Qualified Code(s): I10 - Essential (primary) hypertension (4) Parkinsons disease Code(s): G20 - PARKINSON'S DISEASE Status: Chronic - Plan pt has no more chest pain, if ok with cardiology will discharge pt to [facility] -: continue home meds. * . Review of Systems - Review of Systems Respiratory: negative: Cough, Dry, Shortness of Breath, Hemoptysis, SOB with Excertion, Pleuritic Pain, Sputum, Wheezing Cardiovascular: negative: chest pain, palpitations, orthopnea, paroxysmal nocturnal dyspnea, edema, light headedness, other Gastrointestinal: negative: Nausea, Vomiting, Abdominal Pain, Diarrhea, Constipation, Melena, Hematochezia, Other Genitourinary: negative: Dysuria, Frequency, Incontinence, Hematuria, Retention , Other - Medications/Allergies Allergies/Adverse Reactions: Allergies Allergy/AdvReac Type Severity Reaction Status Date / Time diphenhydramine HCl Allergy Verified 02/09/17 05:22 [From Benadryl] morphine Allergy Verified 05/17/15 02:37 quetiapine fumarate Allergy Verified 05/17/15 02:37 [From Seroquel] Medications: Current Medications Acetaminophen (Tylenol) 1,000 mg PO Q6H PRN PRN Reason: Mild Pain (1-3) Acetaminophen/Codeine Phosphate (Tylenol #3) 1 tab PO Q4H PRN PRN Reason: Mild Pain (1-3) Acetaminophen/Codeine Phosphate (Tylenol #3) 2 tab PO Q4H PRN PRN Reason: Moderate Pain (4-6) Al Hydroxide/Mg Hydroxide (Maalox Plus) 30 ml PO Q6H PRN PRN Reason: Heartburn or Indigestion Aspirin (Aspirin) 325 mg PO DAILY [facility] Last Admin: 09/10/18 09:47 Dose: 325 mg Atorvastatin Calcium (Lipitor) 20 mg PO HS [facility] Last Admin: 09/09/18 20:24 Dose: 20 mg Carbidopa/Levodopa (Sinemet 25-100) 1 tab PO 0200,0600,1000,2200 [facility] Last Admin: 09/10/18 09:48 Dose: 1 tab Carbidopa/Levodopa (Sinemet 25-100) 1 tab PO 1400,1800 [facility] Last Admin: 09/10/18 14:47 Dose: 1 tab Carvedilol (Coreg) 3.125 mg PO BID-[facility] Last Admin: 09/10/18 09:48 Dose: 3.125 mg Clonidine (Catapres) 0.1 mg PO Q4H PRN PRN Reason: SBP > ____ Clopidogrel Bisulfate (Plavix) 75 mg PO DAILY [facility] Last Admin: 09/10/18 09:48 Dose: 75 mg Cyanocobalamin (Vitamin B-12) 1,000 mcg PO DAILY [facility] Last Admin: 09/10/18 09:48 Dose: 1,000 mcg Famotidine (Pepcid) 20 mg PO BID [facility] Last Admin: 09/10/18 09:48 Dose: 20 mg Folic Acid (Folvite) 0.5 mg PO DAILY [facility] Last Admin: 09/10/18 09:47 Dose: 0.5 mg Hydralazine HCl (Apresoline) 10 mg SLOW IVP Q4H PRN PRN Reason: SBP > 180 and HR < 70 Isosorbide Mononitrate (Imdur) 60 mg PO DAILY [facility] Last Admin: 09/10/18 09:47 Dose: 60 mg Ketorolac Tromethamine (Toradol) 30 mg IVP Q6HR [facility] Stop: 09/11/18 18:01 Last Admin: 09/10/18 12:57 Dose: Not Given Lisinopril (Zestril) 5 mg PO HS [facility] Last Admin: 09/09/18 20:30 Dose: Not Given Meclizine HCl (Antivert) 12.5 mg PO DAILY PRN PRN Reason: Dizziness Nitroglycerin (Nitrostat) 0.4 mg SL Q5MIN PRN PRN Reason: Chest Pain Nitroglycerin (Nitrostat) 0.4 mg SL Q5MIN PRN PRN Reason: Chest Pain Olanzapine (Zyprexa) 2.5 mg PO DAILY [facility] Last Admin: 09/10/18 09:49 Dose: 2.5 mg Ondansetron HCl (Zofran Odt) 4 mg PO Q6H PRN PRN Reason: Nausea/Vomiting Ondansetron HCl (Zofran) 4 mg IVP Q6H PRN PRN Reason: Nausea/Vomiting Pregabalin (Lyrica) 50 mg PO BID [facility] Last Admin: 09/10/18 09:47 Dose: 50 mg Ranolazine (Ranexa) 500 mg PO BID [facility] Last Admin: 09/10/18 09:48 Dose: 500 mg Sodium Chloride (Flush - Normal Saline) 10 ml IVF Q12HR [facility] Last Admin: 09/10/18 09:46 Dose: 10 ml Sodium Chloride (Flush - Normal Saline) 10 ml IVF PRN PRN PRN Reason: Saline Flush Last Admin: 09/10/18 05:51 Dose: 10 ml Sterile Water (Water For Injection) 1.2 ml FS Q12H PRN PRN Reason: TO RECONSTITUTE ZIPRASIDONE Last Admin: 09/07/18 23:06 Dose: 1.2 ml Tramadol HCl (Ultram) 50 mg PO Q6H PRN PRN Reason: Moderate Pain (4-6) Ziprasidone (Geodon) 10 mg IM Q12H PRN PRN Reason: Agitation Last Admin: 09/07/18 23:06 Dose: 10 mg
[2018-09-10] MEDS: Lisinopril 5 MG TAB PO SCH (21:15)
[2018-09-10] MEDS: Atorvastatin Calcium 20 MG TAB PO SCH (21:15)
[2018-09-11] MEDS: Ketorolac Tromethamine 30 MG/ML VIAL IVP SCH ×4 (00:04→16:50)
[2018-09-11] MEDS: Carbidopa/Levodopa 25-100 mg Tablet PO SCH ×7 (03:13→20:38)
[2018-09-11] MEDS: Pregabalin 50 MG CAP PO SCH ×2 (10:40→20:37)
[2018-09-11] MEDS: Aspirin 325 MG TAB PO SCH (10:42)
[2018-09-11] MEDS: Carvedilol 3.125 MG TAB PO SCH ×2 (10:42→16:48)
[2018-09-11] MEDS: Famotidine 20 MG TAB PO SCH ×2 (10:43→20:36)
[2018-09-11] MEDS: Clopidogrel Bisulfate 75 MG TAB PO SCH (10:43)
[2018-09-11] MEDS: Folic Acid 1 MG TAB PO SCH (10:43)
[2018-09-11] MEDS: Cyanocobalamin (Vitamin B-12) 1,000 MCG TAB PO SCH (10:44)
[2018-09-11] MEDS: OLANZapine 2.5 MG TAB PO SCH (11:05)
--- NOTE | 2018-09-11 11:17 | PDOC.PN ---
- Subjective Encounter Start Date: 09/11/18 Encounter Start Time: 11:30 Subjective: pt up in bed no chest pain - Objective Resuscitation Status: Resuscitation Status FULL:Full Resuscitation Vital Signs & Weight: Vital Signs (12 hours) Temp Pulse Resp BP BP Pulse Ox 09/11/18 09:40 97.5 F L 56 L 18 153/69 H 95 09/11/18 03:39 97.7 F 52 L 20 121/61 94 L Weight Weight 194 lb 8 oz I&O: 09/10/18 09/11/18 09/12/18 06:59 06:59 06:59 Intake Total 962 500 Output Total 825 100 Balance 137 400 Result Diagrams: 09/10/18 10:20 09/10/18 10:20 Phys Exam - Physical Examination Neck: no nodes, no JVD, supple, full ROM Respiratory: no wheezing, no rales, no rhonchi, wheezing present, clear to auscultation bilateral Cardiovascular: RRR, no significant murmur, no rub, gallop, irregular Gastrointestinal: soft, non-tender, no distention, positive bowel sounds Dx/Plan (1) NSTEMI (non-ST elevated myocardial infarction) Code(s): I21.4 - NON-ST ELEVATION (NSTEMI) MYOCARDIAL INFARCTION Status: Acute (2) Hyperlipidemia Code(s): E78.5 - HYPERLIPIDEMIA, UNSPECIFIED Status: Chronic Qualifiers: Hyperlipidemia type: unspecified Qualified Code(s): E78.5 - Hyperlipidemia , unspecified (3) Hypertension Code(s): I10 - ESSENTIAL (PRIMARY) HYPERTENSION Status: Chronic Qualifiers: Hypertension type: essential hypertension Qualified Code(s): I10 - Essential (primary) hypertension (4) Parkinsons disease Code(s): G20 - PARKINSON'S DISEASE Status: Chronic - Plan pt has no chest pain, longterm cannot take the pt until thursday -: will continue home meds * . Review of Systems - Review of Systems Respiratory: negative: Cough, Dry, Shortness of Breath, Hemoptysis, SOB with Excertion, Pleuritic Pain, Sputum, Wheezing Cardiovascular: negative: chest pain, palpitations, orthopnea, paroxysmal nocturnal dyspnea, edema, light headedness, other Gastrointestinal: negative: Nausea, Vomiting, Abdominal Pain, Diarrhea, Constipation, Melena, Hematochezia, Other Genitourinary: negative: Dysuria, Frequency, Incontinence, Hematuria, Retention , Other - Medications/Allergies Allergies/Adverse Reactions: Allergies Allergy/AdvReac Type Severity Reaction Status Date / Time diphenhydramine HCl Allergy Verified 02/09/17 05:22 [From Benadryl] morphine Allergy Verified 05/17/15 02:37 quetiapine fumarate Allergy Verified 05/17/15 02:37 [From Seroquel] Medications: Current Medications Acetaminophen (Tylenol) 1,000 mg PO Q6H PRN PRN Reason: Mild Pain (1-3) Acetaminophen/Codeine Phosphate (Tylenol #3) 1 tab PO Q4H PRN PRN Reason: Mild Pain (1-3) Acetaminophen/Codeine Phosphate (Tylenol #3) 2 tab PO Q4H PRN PRN Reason: Moderate Pain (4-6) Al Hydroxide/Mg Hydroxide (Maalox Plus) 30 ml PO Q6H PRN PRN Reason: Heartburn or Indigestion Aspirin (Aspirin) 325 mg PO DAILY [facility] Last Admin: 09/11/18 10:42 Dose: 325 mg Atorvastatin Calcium (Lipitor) 20 mg PO HS [facility] Last Admin: 09/10/18 21:15 Dose: 20 mg Carbidopa/Levodopa (Sinemet 25-100) 1 tab PO 0200,0600,1000,2200 [facility] Last Admin: 09/11/18 10:43 Dose: 1 tab Carbidopa/Levodopa (Sinemet 25-100) 1 tab PO 1400,1800 [facility] Last Admin: 09/10/18 17:36 Dose: 1 tab Carvedilol (Coreg) 3.125 mg PO BID-[facility] Last Admin: 09/11/18 10:42 Dose: 3.125 mg Clonidine (Catapres) 0.1 mg PO Q4H PRN PRN Reason: SBP > ____ Clopidogrel Bisulfate (Plavix) 75 mg PO DAILY [facility] Last Admin: 09/11/18 10:43 Dose: 75 mg Cyanocobalamin (Vitamin B-12) 1,000 mcg PO DAILY [facility] Last Admin: 09/11/18 10:44 Dose: 1,000 mcg Famotidine (Pepcid) 20 mg PO BID [facility] Last Admin: 09/11/18 10:43 Dose: 20 mg Folic Acid (Folvite) 0.5 mg PO DAILY [facility] Last Admin: 09/11/18 10:43 Dose: 0.5 mg Hydralazine HCl (Apresoline) 10 mg SLOW IVP Q4H PRN PRN Reason: SBP > 180 and HR < 70 Isosorbide Mononitrate (Imdur) 60 mg PO DAILY [facility] Last Admin: 09/11/18 10:43 Dose: 60 mg Ketorolac Tromethamine (Toradol) 30 mg IVP Q6HR [facility] Stop: 09/11/18 18:01 Last Admin: 09/11/18 06:14 Dose: 30 mg Lisinopril (Zestril) 5 mg PO HS [facility] Last Admin: 09/10/18 21:15 Dose: Not Given Meclizine HCl (Antivert) 12.5 mg PO DAILY PRN PRN Reason: Dizziness Nitroglycerin (Nitrostat) 0.4 mg SL Q5MIN PRN PRN Reason: Chest Pain Nitroglycerin (Nitrostat) 0.4 mg SL Q5MIN PRN PRN Reason: Chest Pain Olanzapine (Zyprexa) 2.5 mg PO DAILY [facility] Last Admin: 09/11/18 11:05 Dose: 2.5 mg Ondansetron HCl (Zofran Odt) 4 mg PO Q6H PRN PRN Reason: Nausea/Vomiting Ondansetron HCl (Zofran) 4 mg IVP Q6H PRN PRN Reason: Nausea/Vomiting Pregabalin (Lyrica) 50 mg PO BID [facility] Last Admin: 09/11/18 10:40 Dose: 50 mg Ranolazine (Ranexa) 500 mg PO BID [facility] Last Admin: 09/11/18 10:43 Dose: 500 mg Sodium Chloride (Flush - Normal Saline) 10 ml IVF Q12HR [facility] Last Admin: 09/11/18 10:45 Dose: 10 ml Sodium Chloride (Flush - Normal Saline) 10 ml IVF PRN PRN PRN Reason: Saline Flush Last Admin: 09/11/18 06:21 Dose: 10 ml Sterile Water (Water For Injection) 1.2 ml FS Q12H PRN PRN Reason: TO RECONSTITUTE ZIPRASIDONE Last Admin: 09/07/18 23:06 Dose: 1.2 ml Tramadol HCl (Ultram) 50 mg PO Q6H PRN PRN Reason: Moderate Pain (4-6) Ziprasidone (Geodon) 10 mg IM Q12H PRN PRN Reason: Agitation Last Admin: 09/07/18 23:06 Dose: 10 mg
--- NOTE | 2018-09-11 12:55 | PDOC.CTH ---
Cardiology Progress Note - Subjective The pt seen and examined. No overnight events. No cardiac complaints. He is more alerted today. - Objective Vital Signs Temp Pulse Resp BP BP Pulse Ox 09/11/18 09:40 97.5 F L 56 L 18 153/69 H 95 09/11/18 03:39 97.7 F 52 L 20 121/61 94 L Weight 194 lb 8 oz 09/10/18 09/11/18 09/12/18 06:59 06:59 06:59 Intake Total 962 500 Output Total 825 100 Balance 137 400 - Physical Examination General/Neuro: alert & oriented x3 Neck: no JVD present Lungs: CTA Heart: RRR Abdomen: soft Extremities: other: (No edema) - Telemetry Telemetry Rhythm: SB 50-60s - Labs Result Diagrams: 09/10/18 10:20 09/10/18 10:20 Troponin/CKMB Troponin I 22.094 ng/mL (< 0.028) H* 09/08/18 09:30 - Assessment/Plan 1. NSTEMI: S/p LHC on 09/08/18 showed 4/5 graft occluded, 75% stenosis in mid JOAQUIN and patent GUTIERREZ-LAD, EF 35-40% and global hypokinesis. His multiple medical problems and Parkinson's disease are factors to be considered as possible contraindications to CABG. On Ranexa. 2. CAD/ s/p CABG: Stop NTG paste and change to Imdur 60mg qd. On Ranexa 500mg BID. 3. HTN: stable 4. Parkinsom's dz: continue meds (his Stimulation device has been turned off by Dr Watkins.) 5. hx. of seizures. 6. Dyslipidemia: Increase Lipitor from 10mg to 20mg for LDL 99 (should be less than 70) MAR reviewed * From Cardiac standpoint, the pt is stable to tx back to [place]. In the next few weeks he can be seen in the office / If he is having symptoms, then possible place a stent in the prox. L-Circ and the ramus intermedius. Review of Systems - Review of Systems Constitutional: reports: no symptoms reported EENTM: reports: no symptoms reported Respiratory: reports: no symptoms reported Cardiac (ROS): reports: no symptoms reported ABD/GI: reports: no symptoms reported : reports: no symptoms reported Musculoskeletal: reports: no symptoms reported
[2018-09-11] MEDS: Lisinopril 5 MG TAB PO SCH (20:37)
[2018-09-11] MEDS: Atorvastatin Calcium 20 MG TAB PO SCH (20:37)
[2018-09-12] MEDS: Carbidopa/Levodopa 25-100 mg Tablet PO SCH ×6 (01:13→21:25)
[2018-09-12] MEDS: Clopidogrel Bisulfate 75 MG TAB PO SCH (08:24)
[2018-09-12] MEDS: Famotidine 20 MG TAB PO SCH ×2 (08:24→21:25)
[2018-09-12] MEDS: OLANZapine 2.5 MG TAB PO SCH (08:24)
[2018-09-12] MEDS: Cyanocobalamin (Vitamin B-12) 1,000 MCG TAB PO SCH (08:24)
[2018-09-12] MEDS: Folic Acid 1 MG TAB PO SCH (08:25)
[2018-09-12] MEDS: Carvedilol 3.125 MG TAB PO SCH ×2 (08:25→17:06)
[2018-09-12] MEDS: Aspirin 325 MG TAB PO SCH (08:25)
[2018-09-12] MEDS: Pregabalin 50 MG CAP PO SCH ×2 (08:25→21:25)
--- NOTE | 2018-09-12 09:55 | PDOC.CTH ---
<Lara Prasad - Last Filed: 09/12/18 09:55> Cardiology Progress Note - Subjective The pt seen and examined. No overnight events. No cardiac complaints. He is more alerted today. - Objective Vital Signs Temp Pulse Resp BP Pulse Ox 09/12/18 07:56 97.4 F L 66 18 156/92 H 93 L 09/12/18 04:00 97.6 F 50 L 16 121/67 92 L Weight 194 lb 8 oz 09/11/18 09/12/18 09/13/18 06:59 06:59 06:59 Intake Total 500 Output Total 100 Balance 400 - Physical Examination General/Neuro: alert & oriented x3 Neck: no JVD present Lungs: CTA Heart: RRR Abdomen: soft Extremities: other: (No edema) - Labs Result Diagrams: 09/10/18 10:20 09/10/18 10:20 Troponin/CKMB Troponin I 22.094 ng/mL (< 0.028) H* 09/08/18 09:30 - Assessment/Plan 1. NSTEMI: S/p LHC on 09/08/18 showed 4/5 graft occluded, 75% stenosis in mid JOAQUIN and patent GUTIERREZ-LAD, EF 35-40% and global hypokinesis. His multiple medical problems and Parkinson's disease are factors to be considered as possible contraindications to CABG. On Ranexa. 2. CAD/ s/p CABG: Stop NTG paste and change to Imdur 60mg qd. On Ranexa 500mg BID. 3. HTN: stable 4. Parkinsom's dz: continue meds (his Stimulation device has been turned off by Dr Watkins.) 5. hx. of seizures. 6. Dyslipidemia: Increase Lipitor from 10mg to 20mg for LDL 99 (should be less than 70) MAR reviewed * From Cardiac standpoint, the pt is stable to tx back to [place]. In the next few weeks he can be seen in the office / If he is having symptoms, then possible place a stent in the prox. L-Circ and the ramus intermedius. *Most likely, The pt will d/c to NH on Thursday. Review of Systems - Review of Systems Constitutional: reports: no symptoms reported EENTM: reports: no symptoms reported Respiratory: reports: no symptoms reported Cardiac (ROS): reports: no symptoms reported ABD/GI: reports: no symptoms reported : reports: no symptoms reported Musculoskeletal: reports: no symptoms reported Skin: reports: no symptoms reported <Wilmer Castañeda - Last Filed: 09/12/18 22:12> Cardiology Progress Note - Objective Vital Signs Temp Pulse Resp BP BP BP Pulse Ox 09/12/18 21:25 57 L 145/78 H 09/12/18 20:00 97.5 F L 57 L 18 145/78 H 93 L 09/12/18 11:46 97.8 F 54 L 18 121/70 92 L Weight 194 lb 8 oz 09/11/18 09/12/18 09/13/18 06:59 06:59 06:59 Intake Total 500 800 Output Total 100 Balance 400 800 - Labs Result Diagrams: 09/12/18 10:54 09/12/18 10:54 Troponin/CKMB Troponin I 22.094 ng/mL (< 0.028) H* 09/08/18 09:30 - Assessment/Plan Pt. seen and evaluated by me. I agree with the A/P by the ASSISTANT FINANCE DIRECTOR. We have discussed the pt. and the plan.Chest clear RRR.
[2018-09-12 11:03] LABS: Hemoglobin 13.6 g/dL (14.0-18.0); Platelet Count 199 thou/uL (130-400)
--- NOTE | 2018-09-12 12:59 | PDOC.PN ---
- Subjective Encounter Start Date: 09/12/18 Encounter Start Time: 12:00 Subjective: pt up in bed no complains - Objective Resuscitation Status: Resuscitation Status FULL:Full Resuscitation Vital Signs & Weight: Vital Signs (12 hours) Temp Pulse Resp BP Pulse Ox 09/12/18 11:46 97.8 F 54 L 18 121/70 92 L 09/12/18 07:56 97.4 F L 66 18 156/92 H 93 L 09/12/18 04:00 97.6 F 50 L 16 121/67 92 L Weight Weight 194 lb 8 oz I&O: 09/11/18 09/12/18 09/13/18 06:59 06:59 06:59 Intake Total 500 Output Total 100 Balance 400 Result Diagrams: 09/12/18 10:54 09/12/18 10:54 Phys Exam - Physical Examination Neck: no nodes, no JVD, supple, full ROM Respiratory: no wheezing, no rales, no rhonchi, wheezing present, clear to auscultation bilateral Cardiovascular: RRR, no significant murmur, no rub, gallop, irregular Gastrointestinal: soft, non-tender, no distention, positive bowel sounds Dx/Plan (1) NSTEMI (non-ST elevated myocardial infarction) Code(s): I21.4 - NON-ST ELEVATION (NSTEMI) MYOCARDIAL INFARCTION Status: Acute (2) Hyperlipidemia Code(s): E78.5 - HYPERLIPIDEMIA, UNSPECIFIED Status: Chronic Qualifiers: Hyperlipidemia type: unspecified Qualified Code(s): E78.5 - Hyperlipidemia , unspecified (3) Hypertension Code(s): I10 - ESSENTIAL (PRIMARY) HYPERTENSION Status: Chronic Qualifiers: Hypertension type: essential hypertension Qualified Code(s): I10 - Essential (primary) hypertension (4) Parkinsons disease Code(s): G20 - PARKINSON'S DISEASE Status: Chronic - Plan pt will be tranferred to [place] -: will continue home meds * . Review of Systems - Review of Systems Respiratory: negative: Cough, Dry, Shortness of Breath, Hemoptysis, SOB with Excertion, Pleuritic Pain, Sputum, Wheezing Cardiovascular: negative: chest pain, palpitations, orthopnea, paroxysmal nocturnal dyspnea, edema, light headedness, other Gastrointestinal: negative: Nausea, Vomiting, Abdominal Pain, Diarrhea, Constipation, Melena, Hematochezia, Other Genitourinary: negative: Dysuria, Frequency, Incontinence, Hematuria, Retention , Other - Medications/Allergies Allergies/Adverse Reactions: Allergies Allergy/AdvReac Type Severity Reaction Status Date / Time diphenhydramine HCl Allergy Verified 02/09/17 05:22 [From Benadryl] morphine Allergy Verified 05/17/15 02:37 quetiapine fumarate Allergy Verified 05/17/15 02:37 [From Seroquel] Medications: Current Medications Acetaminophen (Tylenol) 1,000 mg PO Q6H PRN PRN Reason: Mild Pain (1-3) Acetaminophen/Codeine Phosphate (Tylenol #3) 1 tab PO Q4H PRN PRN Reason: Mild Pain (1-3) Acetaminophen/Codeine Phosphate (Tylenol #3) 2 tab PO Q4H PRN PRN Reason: Moderate Pain (4-6) Al Hydroxide/Mg Hydroxide (Maalox Plus) 30 ml PO Q6H PRN PRN Reason: Heartburn or Indigestion Aspirin (Aspirin) 325 mg PO DAILY [facility] Last Admin: 09/12/18 08:25 Dose: 325 mg Atorvastatin Calcium (Lipitor) 20 mg PO HS [facility] Last Admin: 09/11/18 20:37 Dose: 20 mg Carbidopa/Levodopa (Sinemet 25-100) 1 tab PO 0200,0600,1000,2200 [facility] Last Admin: 09/12/18 11:13 Dose: 1 tab Carbidopa/Levodopa (Sinemet 25-100) 1 tab PO 1400,1800 [facility] Last Admin: 09/11/18 16:50 Dose: 1 tab Carvedilol (Coreg) 3.125 mg PO BID-[facility] Last Admin: 09/12/18 08:25 Dose: 3.125 mg Clonidine (Catapres) 0.1 mg PO Q4H PRN PRN Reason: SBP > ____ Clopidogrel Bisulfate (Plavix) 75 mg PO DAILY [facility] Last Admin: 09/12/18 08:24 Dose: 75 mg Cyanocobalamin (Vitamin B-12) 1,000 mcg PO DAILY [facility] Last Admin: 09/12/18 08:24 Dose: 1,000 mcg Famotidine (Pepcid) 20 mg PO BID [facility] Last Admin: 09/12/18 08:24 Dose: 20 mg Folic Acid (Folvite) 0.5 mg PO DAILY [facility] Last Admin: 09/12/18 08:25 Dose: 0.5 mg Hydralazine HCl (Apresoline) 10 mg SLOW IVP Q4H PRN PRN Reason: SBP > 180 and HR < 70 Isosorbide Mononitrate (Imdur) 60 mg PO DAILY [facility] Last Admin: 09/12/18 08:24 Dose: 60 mg Lisinopril (Zestril) 5 mg PO HS [facility] Last Admin: 09/11/18 20:37 Dose: Not Given Meclizine HCl (Antivert) 12.5 mg PO DAILY PRN PRN Reason: Dizziness Nitroglycerin (Nitrostat) 0.4 mg SL Q5MIN PRN PRN Reason: Chest Pain Olanzapine (Zyprexa) 2.5 mg PO DAILY [facility] Last Admin: 09/12/18 08:24 Dose: 2.5 mg Ondansetron HCl (Zofran Odt) 4 mg PO Q6H PRN PRN Reason: Nausea/Vomiting Ondansetron HCl (Zofran) 4 mg IVP Q6H PRN PRN Reason: Nausea/Vomiting Pregabalin (Lyrica) 50 mg PO BID [facility] Last Admin: 09/12/18 08:25 Dose: 50 mg Ranolazine (Ranexa) 500 mg PO BID [facility] Last Admin: 09/12/18 08:24 Dose: 500 mg Sodium Chloride (Flush - Normal Saline) 10 ml IVF Q12HR [facility] Last Admin: 09/12/18 08:25 Dose: 10 ml Sodium Chloride (Flush - Normal Saline) 10 ml IVF PRN PRN PRN Reason: Saline Flush Last Admin: 09/11/18 06:21 Dose: 10 ml Sterile Water (Water For Injection) 1.2 ml FS Q12H PRN PRN Reason: TO RECONSTITUTE ZIPRASIDONE Last Admin: 09/07/18 23:06 Dose: 1.2 ml Tramadol HCl (Ultram) 50 mg PO Q6H PRN PRN Reason: Moderate Pain (4-6) Ziprasidone (Geodon) 10 mg IM Q12H PRN PRN Reason: Agitation Last Admin: 09/07/18 23:06 Dose: 10 mg
[2018-09-12] MEDS ORDERED: Bisacodyl 10 MG SUPP PR SCH (13:15)
[2018-09-12] MEDS: Lisinopril 5 MG TAB PO SCH (21:25)
[2018-09-12] MEDS: Atorvastatin Calcium 20 MG TAB PO SCH (21:25)
[2018-09-13] MEDS: Carbidopa/Levodopa 25-100 mg Tablet PO SCH ×6 (02:16→21:44)
[2018-09-13] MEDS: Aspirin 325 MG TAB PO SCH (08:02)
[2018-09-13] MEDS: Pregabalin 50 MG CAP PO SCH ×2 (08:03→21:44)
[2018-09-13] MEDS: Carvedilol 3.125 MG TAB PO SCH ×2 (08:04→17:12)
--- NOTE | 2018-09-13 08:04 | PDOC.CTH ---
Cardiology Progress Note - Subjective The pt seen and examined. No cardiac complaints. His HR has been 48-low 60s. He denied dizziness or lightheadedness. - Objective Vital Signs Temp Pulse Resp BP BP Pulse Ox 09/13/18 06:57 98.3 F 48 L 16 130/81 95 09/12/18 21:25 57 L 145/78 H Weight 194 lb 8 oz 09/12/18 09/13/18 09/14/18 06:59 06:59 06:59 Intake Total 1040 Balance 1040 - Physical Examination General/Neuro: alert & oriented x3 Neck: no JVD present Lungs: CTA Heart: RRR Abdomen: soft Extremities: other: (No edema) - Labs Result Diagrams: 09/12/18 10:54 09/12/18 10:54 Troponin/CKMB Troponin I 22.094 ng/mL (< 0.028) H* 09/08/18 09:30 - Assessment/Plan 1. NSTEMI: S/p LHC on 09/08/18 showed 4/5 graft occluded, 75% stenosis in mid JOAQUIN and patent GUTIERREZ-LAD, EF 35-40% and global hypokinesis. His multiple medical problems and Parkinson's disease are factors to be considered as possible contraindications to CABG. On Ranexa. 2. CAD/ s/p CABG: stable; On BBlocer, KEN, ASA, Satin, and Imdur 60mg qd. On Ranexa 500mg BID. 3. HTN: stable 4. Parkinsom's dz: managed by PCP/neurology service (his Stimulation device has been turned off by Dr Watkins.) 5. hx. of seizures. 6. Dyslipidemia: Increase Lipitor from 10mg to 20mg for LDL 99 (should be less than 70) MAR reviewed * From Cardiac standpoint, the pt is stable to tx back to [place]. In the next few weeks he can be seen in the office. If he is having any cardiac symptoms, then possible place a stent in the prox. L-Circ and the ramus intermedius. *Most likely, The pt will d/c to [place] today. Review of Systems - Review of Systems Constitutional: reports: no symptoms reported EENTM: reports: no symptoms reported Respiratory: reports: no symptoms reported Cardiac (ROS): reports: no symptoms reported ABD/GI: reports: no symptoms reported : reports: no symptoms reported Musculoskeletal: reports: no symptoms reported
[2018-09-13] MEDS: Famotidine 20 MG TAB PO SCH ×2 (08:05→21:43)
[2018-09-13] MEDS: Folic Acid 1 MG TAB PO SCH (08:05)
[2018-09-13] MEDS: Cyanocobalamin (Vitamin B-12) 1,000 MCG TAB PO SCH (08:05)
[2018-09-13] MEDS: Clopidogrel Bisulfate 75 MG TAB PO SCH (08:05)
[2018-09-13] MEDS: Bisacodyl 10 MG SUPP PR SCH (08:08)
[2018-09-13] MEDS: OLANZapine 2.5 MG TAB PO SCH (09:03)
[2018-09-13] MEDS ORDERED: Bisacodyl 10 MG SUPP PR SCH (15:45)
--- NOTE | 2018-09-13 16:19 | RAD ---
ABDOMEN ONE VIEW: HISTORY: Abdomen pain. FINDINGS: Large amount of stool throughout the colon and rectum. Small bowel gas pattern is nonspecific. No r adiopaque foreign bodies. There is calcification over the arterial structures. IMPRESSION: 1. Constipation. 2. Atherosclerosis. POS: SKY
[2018-09-13] MEDS ORDERED: Magnesium Citrate 300 ML BOT PO SCH (17:45)
--- NOTE | 2018-09-13 18:24 | PDOC.PN ---
- Subjective Encounter Start Date: 09/13/18 Encounter Start Time: 12:30 Subjective: pt up in bed feels constipated - Objective Resuscitation Status: Resuscitation Status FULL:Full Resuscitation Vital Signs & Weight: Vital Signs (12 hours) Temp Pulse Resp BP BP Pulse Ox 09/13/18 10:52 58 L 14 118/70 98 09/13/18 06:57 98.3 F 48 L 16 130/81 95 Weight Weight 194 lb 8 oz I&O: 09/12/18 09/13/18 09/14/18 06:59 06:59 06:59 Intake Total 1040 Balance 1040 Result Diagrams: 09/12/18 10:54 09/12/18 10:54 Phys Exam - Physical Examination Neck: no nodes, no JVD, supple, full ROM Respiratory: no wheezing, no rales, no rhonchi, wheezing present, clear to auscultation bilateral Cardiovascular: RRR, no significant murmur, no rub, gallop, irregular Gastrointestinal: soft, non-tender, no distention, positive bowel sounds Dx/Plan (1) NSTEMI (non-ST elevated myocardial infarction) Code(s): I21.4 - NON-ST ELEVATION (NSTEMI) MYOCARDIAL INFARCTION Status: Acute (2) Hyperlipidemia Code(s): E78.5 - HYPERLIPIDEMIA, UNSPECIFIED Status: Chronic Qualifiers: Hyperlipidemia type: unspecified Qualified Code(s): E78.5 - Hyperlipidemia , unspecified (3) Hypertension Code(s): I10 - ESSENTIAL (PRIMARY) HYPERTENSION Status: Chronic Qualifiers: Hypertension type: essential hypertension Qualified Code(s): I10 - Essential (primary) hypertension (4) Parkinsons disease Code(s): G20 - PARKINSON'S DISEASE Status: Chronic - Plan detention had electrical issues and will not take pt today -: kub done pt has significant stool will give mag citrate. * . Review of Systems - Review of Systems Cardiovascular: negative: chest pain, palpitations, orthopnea, paroxysmal nocturnal dyspnea, edema, light headedness, other Gastrointestinal: negative: Nausea, Vomiting, Abdominal Pain, Diarrhea, Constipation, Melena, Hematochezia, Other Genitourinary: negative: Dysuria, Frequency, Incontinence, Hematuria, Retention , Other - Medications/Allergies Allergies/Adverse Reactions: Allergies Allergy/AdvReac Type Severity Reaction Status Date / Time diphenhydramine HCl Allergy Verified 03/20/17 05:22 [From Benadryl] morphine Allergy Verified 05/17/15 02:37 quetiapine fumarate Allergy Verified 05/17/15 02:37 [From Seroquel] Medications: Current Medications Acetaminophen (Tylenol) 1,000 mg PO Q6H PRN PRN Reason: Mild Pain (1-3) Acetaminophen/Codeine Phosphate (Tylenol #3) 1 tab PO Q4H PRN PRN Reason: Mild Pain (1-3) Acetaminophen/Codeine Phosphate (Tylenol #3) 2 tab PO Q4H PRN PRN Reason: Moderate Pain (4-6) Al Hydroxide/Mg Hydroxide (Maalox Plus) 30 ml PO Q6H PRN PRN Reason: Heartburn or Indigestion Aspirin (Aspirin) 325 mg PO DAILY [facility] Last Admin: 09/13/18 08:02 Dose: 325 mg Atorvastatin Calcium (Lipitor) 20 mg PO HS [facility] Last Admin: 09/12/18 21:25 Dose: 20 mg Bisacodyl (Dulcolax) 10 mg OR DAILY [facility] Last Admin: 09/13/18 08:08 Dose: 10 mg Bisacodyl (Dulcolax) 10 mg OR NOW [facility] Stop: 09/14/18 15:46 Carbidopa/Levodopa (Sinemet 25-100) 1 tab PO 0200,0600,1000,2200 [facility] Last Admin: 09/13/18 10:09 Dose: 1 tab Carbidopa/Levodopa (Sinemet 25-100) 1 tab PO 1400,1800 [facility] Last Admin: 09/13/18 14:40 Dose: Not Given Carvedilol (Coreg) 3.125 mg PO BID[facility] Last Admin: 09/13/18 17:12 Dose: Not Given Clonidine (Catapres) 0.1 mg PO Q4H PRN PRN Reason: SBP > ____ Clopidogrel Bisulfate (Plavix) 75 mg PO DAILY [facility] Last Admin: 09/13/18 08:05 Dose: 75 mg Cyanocobalamin (Vitamin B-12) 1,000 mcg PO DAILY [facility] Last Admin: 09/13/18 08:05 Dose: 1,000 mcg Famotidine (Pepcid) 20 mg PO BID [facility] Last Admin: 09/13/18 08:05 Dose: 20 mg Folic Acid (Folvite) 0.5 mg PO DAILY [facility] Last Admin: 09/13/18 08:05 Dose: 0.5 mg Hydralazine HCl (Apresoline) 10 mg SLOW IVP Q4H PRN PRN Reason: SBP > 180 and HR < 70 Isosorbide Mononitrate (Imdur) 60 mg PO DAILY [facility] Last Admin: 09/13/18 08:05 Dose: 60 mg Lisinopril (Zestril) 5 mg PO HS [facility] Last Admin: 09/12/18 21:25 Dose: 5 mg Magnesium Citrate (Citrate Of Magnesia 300 Ml Bot) 300 ml PO NOW [facility] Stop: 09/13/18 19:00 Meclizine HCl (Antivert) 12.5 mg PO DAILY PRN PRN Reason: Dizziness Nitroglycerin (Nitrostat) 0.4 mg SL Q5MIN PRN PRN Reason: Chest Pain Olanzapine (Zyprexa) 2.5 mg PO DAILY [facility] Last Admin: 09/13/18 09:03 Dose: 2.5 mg Ondansetron HCl (Zofran Odt) 4 mg PO Q6H PRN PRN Reason: Nausea/Vomiting Ondansetron HCl (Zofran) 4 mg IVP Q6H PRN PRN Reason: Nausea/Vomiting Pregabalin (Lyrica) 50 mg PO BID [facility] Last Admin: 09/13/18 08:03 Dose: 50 mg Ranolazine (Ranexa) 500 mg PO BID [facility] Last Admin: 09/13/18 08:04 Dose: 500 mg Sodium Chloride (Flush - Normal Saline) 10 ml IVF Q12HR [facility] Last Admin: 09/13/18 08:06 Dose: 10 ml Sodium Chloride (Flush - Normal Saline) 10 ml IVF PRN PRN PRN Reason: Saline Flush Last Admin: 09/11/18 06:21 Dose: 10 ml Sterile Water (Water For Injection) 1.2 ml FS Q12H PRN PRN Reason: TO RECONSTITUTE ZIPRASIDONE Last Admin: 09/07/18 23:06 Dose: 1.2 ml Tramadol HCl (Ultram) 50 mg PO Q6H PRN PRN Reason: Moderate Pain (4-6) Ziprasidone (Geodon) 10 mg IM Q12H PRN PRN Reason: Agitation Last Admin: 09/07/18 23:06 Dose: 10 mg
[2018-09-13] MEDS: Atorvastatin Calcium 20 MG TAB PO SCH (21:43)
[2018-09-13] MEDS: Lisinopril 5 MG TAB PO SCH (21:43)
[2018-09-14] MEDS: Carbidopa/Levodopa 25-100 mg Tablet PO SCH ×3 (01:47→08:21)
[2018-09-14 07:24] VITALS: BP 136/79; TEMP 97.6
[2018-09-14] MEDS: Carvedilol 3.125 MG TAB PO SCH (07:56)
[2018-09-14] MEDS: Aspirin 325 MG TAB PO SCH (08:21)
[2018-09-14] MEDS: Folic Acid 1 MG TAB PO SCH (08:22)
[2018-09-14] MEDS: Clopidogrel Bisulfate 75 MG TAB PO SCH (08:22)
[2018-09-14] MEDS: Cyanocobalamin (Vitamin B-12) 1,000 MCG TAB PO SCH (08:22)
[2018-09-14] MEDS: Famotidine 20 MG TAB PO SCH (08:23)
[2018-09-14] MEDS: Pregabalin 50 MG CAP PO SCH (08:24)
[2018-09-14] MEDS: Bisacodyl 10 MG SUPP PR SCH (08:25)
[2018-09-14] MEDS: OLANZapine 2.5 MG TAB PO SCH (08:55)
[2018-09-14 11:14] LABS: Hemoglobin 14.2 g/dL (14.0-18.0); Platelet Count 219 thou/uL (130-400)
--- NOTE | 2018-09-14 12:14 | PDOC.CTH ---
Cardiology Progress Note - Subjective the pt seen and examined. No overnight events. No cardiac complaints. - Objective Vital Signs Temp Pulse Resp BP Pulse Ox 09/14/18 07:22 97.6 F 50 L 14 136/79 93 L Weight 194 lb 8 oz 09/13/18 09/14/18 09/15/18 06:59 06:59 06:59 Intake Total 1040 405 Output Total 350 Balance 1040 55 - Physical Examination General/Neuro: other: (intermittent confused) Lungs: CTA Heart: RRR Abdomen: soft Extremities: other: (No edema) - Labs Result Diagrams: 09/14/18 11:02 09/14/18 11:02 Troponin/CKMB Troponin I 22.094 ng/mL (< 0.028) H* 09/08/18 09:30 - Assessment/Plan 1. NSTEMI: S/p LHC on 09/08/18 showed 4/5 graft occluded, 75% stenosis in mid JOAQUIN and patent GUTIERREZ-LAD, EF 35-40% and global hypokinesis. His multiple medical problems and Parkinson's disease are factors to be considered as possible contraindications to CABG. On Ranexa. 2. CAD/ s/p CABG: stable; On BBlocer, KEN, ASA, Satin, and Imdur 60mg qd. On Ranexa 500mg BID. 3. HTN: stable 4. Parkinsom's dz: managed by PCP/neurology service (his Stimulation device has been turned off by Dr Watkins.) 5. hx. of seizures. 6. Dyslipidemia: Increase Lipitor from 10mg to 20mg for LDL 99 (should be less than 70) MAR reviewed * From Cardiac standpoint, the pt is stable to tx back to [place]. In the next few weeks he can be seen in the office. If he is having any cardiac symptoms, then possible place a stent in the prox. L-Circ and the ramus intermedius. *Most likely, The pt will d/c to [place] today. Review of Systems - Review of Systems Constitutional: reports: no symptoms reported EENTM: reports: no symptoms reported Respiratory: reports: no symptoms reported Cardiac (ROS): reports: no symptoms reported ABD/GI: reports: no symptoms reported : reports: no symptoms reported Musculoskeletal: reports: no symptoms reported
--- NOTE | 2018-09-14 19:04 | DIS ---
DATE OF DISCHARGE: 09/14/2018 DISCHARGE DISPOSITION: USP. FOLLOWUP: Follow up with primary care physician, Dr. Cyndy Hurt at the nursing facility. ALLERGIES: The patient is allergic to MORPHINE, SEROQUEL and BENADRYL. DISCHARGE MEDICATIONS: Aspirin 325 mg daily, Lipitor 20 mg at bedtime, carvedilol 3.125 mg b.i.d., P lavix 75 mg daily, Imdur 60 mg daily, lisinopril 5 mg at bedtime, Ranexa 500 mg twice a day. All oth er home medications were left unchanged. INPATIENT CONSULTANTS: Cardiology, Dr. Adrianne Castañeda. DIAGNOSTIC TESTS: 1. Cardiac catheterization on 09/08/2018 showed 100% mid LAD stenosis, 80% proximal circumflex steno sis, 100% obtuse marginal stenosis, 75% mid ramus stenosis, 100% mid RCA stenosis. 4 out of 5 grafts were occluded. GUTIERREZ to LAD was patent. Ejection fraction was 35%-40% with global hypokinesis. 2. Chest x-ray on admission was negative for infiltrate. 3. Abdominal x-ray on 09/13/2018, was consistent with constipation. 4. TSH 0.49 with normal free T4. 5. Cholesterol 151, LDL 99, HDL 33. BRIEF HOSPITAL COURSE: The patient is a 62-year-old white male currently residing at [facility] with coronary artery disease status post CABG, advanced Parkinson disease, frequent falls, hyperten rajesh, and hyperlipidemia, presented to the hospital with chest discomfort. His maximum troponin this admission was 22.0. The patient was seen by Cardiology, Dr. Castañeda. He underwent cardiac catheteriza tion as discussed above. Medical therapy was recommended. His medications have been optimized per C ardiology. He is chest pain free. He had some issues with constipation that resolved on the day of discharge. He appears stable for discharge. FINAL DIAGNOSES: 1. Non-ST elevation myocardial infarction. 2. Coronary artery disease, status post CABG in the past. 3. Hypertension. 4. Hyperlipidemia. 5. Advanced Parkinson disease. 6. History of seizures. 7. Dyslipidemia. 8. Constipation, resolved. 9. Chronic kidney disease stage 2. 10. History of frequent falls. 11. Physical deconditioning. Total time coordinating the discharge of this patient was 38 minutes.
== END 2018-09-14 13:31 | DRG 281 ==
LOC: ERS 11:05 → 2SW 12:26 → OBSVTOIN 13:45 → 2SW 13:45 → 2NO 09-07 12:09 → T4-A 09-11 13:05
PROVIDERS: ADMIT Family Medicine; ATTEND Family Medicine
PROC: 4A023N7 Measurement of Cardiac Sampling and Pressure, Left Heart, Percutaneous Approach (ICD-10-PCS; principal; 2018-09-08)
PROC: B2131ZZ Fluoroscopy of Multiple Coronary Artery Bypass Grafts using Low Osmolar Contrast (ICD-10-PCS; 2018-09-08)
PROC: B2111ZZ Fluoroscopy of Multiple Coronary Arteries using Low Osmolar Contrast (ICD-10-PCS; 2018-09-08)
PROC: B2151ZZ Fluoroscopy of Left Heart using Low Osmolar Contrast (ICD-10-PCS; 2018-09-08)
DX: I21.4 Non-ST elevation (NSTEMI) myocardial infarction (principal); T82.858A Stenosis of other vascular prosthetic devices, implants and grafts, initial encounter; G20 Parkinson's disease; E78.5 Hyperlipidemia, unspecified; F32.9 Major depressive disorder, single episode, unspecified; I25.110 Atherosclerotic heart disease of native coronary artery with unstable angina pectoris; K59.00 Constipation, unspecified; E11.22 Type 2 diabetes mellitus with diabetic chronic kidney disease; F02.80 Dementia in other diseases classified elsewhere, unspecified severity, without behavioral disturbance, psychotic disturbance, mood disturbance, and anxiety; N40.0 Benign prostatic hyperplasia without lower urinary tract symptoms; N52.9 Male erectile dysfunction, unspecified; I12.9 Hypertensive chronic kidney disease with stage 1 through stage 4 chronic kidney disease, or unspecified chronic kidney disease; N18.2 Chronic kidney disease, stage 2 (mild); Z79.82 Long term (current) use of aspirin; Z91.81 History of falling; I25.2 Old myocardial infarction; Z95.1 Presence of aortocoronary bypass graft; Z95.0 Presence of cardiac pacemaker; Z82.49 Family history of ischemic heart disease and other diseases of the circulatory system
CPT/HCPCS: 36415; 74018; 80048; 80061; 82565; 84439; 84443; 84484; 85007; 85014; 85018; 85027; 85049; 93005; 93459; 93567; 99152; 99153; A4216; C1769; G8978-GP-CL; G8979-GP-CJ; J1644; J1650; J1885; J2001; J2250; J3486; J7050

== ENCOUNTER 2018-09-30 13:52 | Inpatient (IN) | payer OTHER ==
[2018-09-30] MEDS ORDERED: Nitroglycerin 0.4 MG TAB (25 Tab Bottle) PO PRN (15:11)
[2018-09-30] MEDS ORDERED: Zolpidem Tartrate 5 MG TAB PO PRN (15:11)
[2018-09-30] MEDS ORDERED: Ondansetron PF 4 MG/2 ML Vial IVP PRN (15:11)
[2018-09-30 15:30] LABS: CKMB 4.9 ng/mL (0-6.6); Troponin I 0.087 ng/mL (< 0.028)
[2018-09-30] MEDS ORDERED: CARB PO SCH (17:00)
[2018-09-30] MEDS ORDERED: LEVO PO SCH (17:00)
[2018-09-30 17:36] VITALS: BMI 27.6
[2018-09-30] MEDS: Carvedilol 3.125 MG TAB PO SCH (17:49)
[2018-09-30 19:37] LABS: Troponin I 0.113 ng/mL (< 0.028)
[2018-09-30] MEDS: Atorvastatin Calcium 20 MG TAB PO SCH (20:35)
[2018-09-30] MEDS: Nitroglycerin 2% Ointment 1 INCH/1 GM Packet TOP SCH (20:35)
[2018-09-30] MEDS: Lisinopril 5 MG TAB PO SCH (20:35)
[2018-09-30 21:33] LABS: Troponin I 0.103 ng/mL (< 0.028)
[2018-10-01 05:24] LABS: #Basophils 0.1 thou/uL (0.0-0.2); #Eosinphils 0.3 thou/uL (0.0-0.7); #Lymphocytes 1.9 thou/uL (1.20-3.40); #Monocytes 0.5 thou/uL (0.11-0.59); #Neutrophils 2.9 thou/uL (1.40-6.50); %Basophils 1.3 % (0.0-1.0); %Eosinophils 5.9 % (0.0-10.0); %Monocytes 9.3 % (0.0-10.0); %Neutrophils 50.5 % (42.0-75.0); Hemoglobin 14.5 g/dL (14.0-18.0); Mean Corpuscular HGB CONC 31.8 g/dL (32.0-36.0); Mean Corpuscular Hemoglobin 30.6 pg (27.0-31.0); Mean Corpuscular Volume 96.3 fL (78.0-98.0); Mean Platelet Volume 8.2 fL (7.4-10.4); Platelet Count 184 thou/uL (130-400); RBC Distribution Width 12.7 % (11.5-14.5); Red Blood Cell (RBC) Count 4.74 mill/uL (4.70-6.10); White Blood Cell (WBC) Count 5.8 thou/uL (4.8-10.8)
[2018-10-01 05:44] LABS: Anion Gap 10 mmol/L (10-20); BUN (Urea Nitrogen) 20 mg/dL (8.4-25.7); Calc. Creatinine Clearance 111 mL/min (70-130); Carbon Dioxide 30 mmol/L (23-31); Chloride 110 mmol/L (98-107); Estimated GFR-MDRD Greater than 90; Glucose 94 mg/dL (80-115); Potassium 4.1 mmol/L (3.5-5.1); Sodium 146 mmol/L (136-145)
[2018-10-01] MEDS: Nitroglycerin 2% Ointment 1 INCH/1 GM Packet TOP SCH ×3 (06:03→21:08)
--- NOTE | 2018-10-01 07:07 | PDOC.PN ---
- Subjective Encounter Start Date: 10/01/18 Encounter Start Time: 07:05 Subjective: no chestpain since about 4pm yesterday - Objective Resuscitation Status: Resuscitation Status DNR:Do Not Resuscitate MAR Reviewed: Yes Vital Signs & Weight: Vital Signs (12 hours) Temp Pulse Resp BP Pulse Ox 10/01/18 04:00 97.3 F L 55 L 20 157/77 H 92 L 09/30/18 20:35 97.9 F 94 58 H 138/74 94 L Weight Weight 191 lb I&O: 09/30/18 10/01/18 10/02/18 06:59 06:59 06:59 Intake Total 120 Output Total 700 Balance -580 Result Diagrams: 10/01/18 04:37 10/01/18 04:37 Phys Exam - Physical Examination Neck: no JVD Respiratory: clear to auscultation bilateral Cardiovascular: RRR, no significant murmur Gastrointestinal: soft, positive bowel sounds Musculoskeletal: edema present Dx/Plan (1) CAD (coronary artery disease) of bypass graft Code(s): I25.810 - ATHEROSCLEROSIS OF CABG W/O ANGINA PECTORIS Status: Acute Qualifiers: [place] vs. transplanted heart: [place] heart Associated angina: with unstable angina Qualified Code(s): I25.700 - Atherosclerosis of coronary artery bypass graft(s), unspecified, with unstable angina pectoris (2) NSTEMI (non-ST elevated myocardial infarction) Code(s): I21.4 - NON-ST ELEVATION (NSTEMI) MYOCARDIAL INFARCTION Status: Acute (3) Hyperlipidemia Code(s): E78.5 - HYPERLIPIDEMIA, UNSPECIFIED Status: Chronic Qualifiers: (4) Hypertension Code(s): I10 - ESSENTIAL (PRIMARY) HYPERTENSION Status: Chronic Qualifiers: Hypertension type: essential hypertension (5) Parkinsons disease Code(s): G20 - PARKINSON'S DISEASE Status: Chronic - Plan cont current meds, discuss with cardiology * .
--- NOTE | 2018-10-01 07:43 | HP ---
PRIMARY CARE PROVIDER: Dr. Cyndy Hurt HISTORY OF PRESENT ILLNESS: [facility] for chest pain. I dictated a history and physical on admission. It is not on the chart . Out of necessity I am dictating a second one since it is a day later, details may be omitted since my memory of what I dictated yesterday may not be complete. The patient with recent non-ST elevatio n ND, who underwent cardiac catheterization and was found to have 4/5 grafts from previous coronary a rtery bypass graft occluded, to have major disease in poarch vessels who was recommended for medical therapy only. Awoke on the morning of admission with pressure-like chest pain that came and went dur ing the day. He was referred to [facility] after a stop in [place]. His chest p ain without radiation. Minimal shortness of breath, no sweats, nausea. He was noted to have an elev ated troponin. [facility] PAST MEDICAL HISTORY: Coronary artery disease with coronary artery bypass graft, non-ST elevation ND 3 weeks ago with cardiac catheterization, advanced Parkinson's disease, status post neuro stimulator , hyperlipidemia, hypertension, seizure disorder, depression. PAST SURGICAL HISTORY: Status post coronary artery bypass graft in 2006, status post brain stimulato r for Parkinson's, status post pacemaker placement. CURRENT MEDICATIONS: At the time of admission. Folic acid 0.4 mg a day, Imdur 60 mg a day, Coreg 3. 125 mg b.i.d., Plavix 75 mg a day, olanzapine 2.5 mg a day, Lyrica 50 mg twice a day, Lipitor 20 mg a day, lisinopril 5 mg a day, meclizine 12.5 mg p.o. daily p.r.n., Ranexa 500 mg p.o. b.i.d., Sinemet 25/250 one q.4h. p.r.n., aspirin 325 mg a day, Zofran oral dissolving tablet 4 mg p.o. q.6h. p.r.n. ALLERGIES: BENADRYL, MORPHINE and SEROQUEL. FAMILY HISTORY: Positive for coronary artery disease in his father. SOCIAL HISTORY: Resides at [facility], minimally ambulatory with a wheelchair. No cur rent alcohol, tobacco or illicit drug use. CODE STATUS: In discussion of resuscitation status, he has elected to be DNR. When questioned about surrogate decision makers, he stated he had siblings, but declined to make any of them a surrogate d ecision maker at this time. REVIEW OF SYSTEMS: GENERAL: Headaches and dizziness in the morning, relates to possible medications in the morning. EYES: Poor vision. No double vision, flashing lights. ENT: No ear pain or drainage. No nasal bleeding. No trouble swallowing. CARDIAC: The aforementioned chest pain, some dyspnea on exertion, no orthopnea. RESPIRATORY: No wheezing, asthma, occasional cough. GASTROINTESTINAL: No nausea, vomiting, abdominal pain, diarrhea or constipation. GENITOURINARY: No hematuria or dysuria. MUSCULOSKELETAL: Swelling in his extremities. NEUROLOGICAL: Parkinson's disease, status post neurostimulator. PSYCHIATRIC: Some anxiety, depression. SKIN: Some bruising on his arms. No rash. HEME/LYMPH: No tender or swollen lymph nodes under his arms, in his neck or his inguinal area. NEUROLOGICAL: Severe Parkinson's disease post-stimulator, nonambulatory, uses a wheelchair. PHYSICAL EXAMINATION: VITAL SIGNS: Blood pressure 149/80, pulse 60, respirations 15, temperature 98. GENERAL: The patient is alert, oriented, cooperative. HEENT: Pupils equal, round, reactive. Extraocular movements are intact. Sclerae white. Tympanic m embranes are clear. Nose is clear. Oral mucous membranes are wet, no lesions. NECK: No adenopathy, thyromegaly, bruits, jugular venous distention. CHEST: Clear to auscultation and percussion bilaterally. HEART: Regular rate and rhythm. No murmurs, no gallops. First and second heart sounds clear. ABDOMEN: Soft, bowel sounds normal. No hepatosplenomegaly, masses, no rebound. EXTREMITIES: No cyanosis or clubbing. There is mild edema. PULSES: Carotid, radial, femoral pulses intact. Pedal pulses, right greater than left. SKIN: Warm and dry with some minor ecchymoses on his arms. HEME/LYMPH: No tender or swollen lymph nodes under his arms, neck, or groin. NEUROLOGIC: Cranial nerves II-XII are intact. Moves all extremities. He has mild to moderate rigid ity and cogwheeling in his arms. EKG: Regular sinus rhythm, Q-waves inferiorly consistent with infarct, no acute ST-T abnormality. T here are nonspecific T-wave changes, reviewed by me. Chest x-ray; surgical changes are seen electronic device in the left chest. Borderline cardiomegaly, no CHF or infiltrate noted, reviewed by me. LABORATORY: CBC is normal. Laboratory done in [place]; comp metabolic profile: Sodium 147, po tassium 4.1, BUN 21, creatinine 0.89. BNP 140. Troponin 0.065. ADMITTING DIAGNOSES: 1. Non-ST elevation myocardial infarction, post recent similar episode. 1. Severe coronary artery disease including 4/5 occluded grafts. 2. Severe Parkinson's disease post-stimulator. 3. Hypertension. 4. Depression. 5. Dyslipidemia. PLAN: Continue home medicines, one time dose Lovenox. Add sublingual nitroglycerin and topical nitr oglycerin. Discussed with the patient's energy efficient site manager, Dr. Castañeda.
--- NOTE | 2018-10-01 08:20 | HP ---
DATE OF ADMISSION: 09/30/2018 PRIMARY CARE PROVIDER: Cyndy Hurt M.D. REASON FOR ADMISSION: Referred to [facility] by [place] emergency room for chest p ain after transfer from [place]. HISTORY OF PRESENT ILLNESS: The patient lives in a custodial in [place]. He was discharged 1 after a non-ST elevation NJ. He underwent cardiac catheterization and had multivessel seri ous disease. Decision was made that he was a candidate only for medical therapy. He presents today, he woke this morning, noted palpitations, tightness in his chest off and on all day. He has taken a t least 5 nitroglycerins. No sweats, no nausea, no radiation of the pain. He was noted to have an a bnormal troponin. He had no evidence of acute ST elevation NJ on EKG. PAST MEDICAL HISTORY: Cardiac cath 09/06/2018 post diagnosis of non-ST elevation myocardial infarcti on. He has advanced Parkinson's disease, post neurostimulator, dyslipidemia, hypertension, depressio n. CURRENT MEDICATIONS: Lyrica 50 mg twice a day, aspirin 81 mg a day, atorvastatin 10 mg a day, Sineme t 25/100 every 4 hours, folic acid 0.4 mg a day, Imdur 60 mg a day, olanzapine 2.5 mg once a day, Margot vix 75 mg a day, Coreg 3.125 mg twice a day, lisinopril 5 mg a day, meclizine 12.5 mg q.8 hours p.r.n . ALLERGIES: BENADRYL, MORPHINE, SEROQUEL. PAST SURGICAL HISTORY: Coronary artery bypass graft 11 years ago, status post brain stimulator for P arkinson's, status post pacemaker placement. FAMILY HISTORY: Positive for coronary artery disease in his family. SOCIAL HISTORY: Resides in [facility]. Nonambulatory except for wheelchair. No alcoh ol, tobacco or illicit drug use. No close family members. I discussed resuscitation status with him , he said "just let me go." I asked about surrogate decision makers, he said none, that his brothers had other things to do than worry with him. He was oriented with an adequate fund of knowledge, Pre sident, etc. REVIEW OF SYSTEMS: Constitutional: He has some episodes of headache and dizziness, especially in th e morning. He has had no fainting. Eyes: No double vision, blurred vision, flashing lights. Ear, Nose and Throat: No ear pain or drainage. No nasal bleeding. No trouble swallowing. Cardiac: Pre ssure chest pain off and on all day. No orthopnea. He does have significant dyspnea on exertion. R espirations: Cough with no wheezing or asthma. Gastrointestinal: No nausea, vomiting, abdominal pa in, diarrhea or constipation. Genitourinary: No hematuria or dysuria. Musculoskeletal: He has no pain or swelling in his legs. He states he is unable to walk due to his Parkinson's disease. Neurol ogic: Severe Parkinson's disease, post neurostimulator. Psychiatric: No acute anxiety, depression. Skin: Bruises easily on his forearms. No rash. Heme/Lymph: No tender or swollen lymph nodes in axilla, inguinal or cervical area. PHYSICAL EXAMINATION: GENERAL: He is an alert, appropriate gentleman. He is slow speaking. VITAL SIGNS: Blood pressure 144/81, pulse 60, respirations 24, temperature 98. HEENT: Reveal pupils equal and round. Extraocular movements are intact. Sclerae are white. Tympan ic membranes are clear. Nose clear. Oral mucous membranes are wet with no oral lesions. NECK: No jugular venous distention, adenopathy or thyromegaly. CHEST: Clear to auscultation and percussion. HEART: Regular rate and rhythm with no murmurs or gallops. ABDOMEN: Soft. Bowel sounds are normal. There is no hepatosplenomegaly, no mass, no rebound. PULSES: Carotid, radial and femoral pulses symmetric. Pedal pulses somewhat stronger on the right t ruiz on the left. SKIN: Warm and dry with some minor ecchymoses on his arms related to actinic thinning. HEME/LYMPH: No tender or swollen lymph nodes in axilla, inguinal or cervical area. No petechial hem orrhages on his mucous membranes, fingernails, etc. NEUROLOGICAL: Moves all extremities. Some mild cogwheeling. Some kbsn-ci-iliupore rigidity. Crani al nerves II-XII are intact. LABORATORY AND X-RAY FINDINGS: EKG sinus rhythm, evidence of inferior infarct, some nonspecific T-wa ve changes, no acute ST-T abnormality, reviewed by me. CT of the chest revealed no acute changes. C hest x-ray reviewed by myself, pacemaker in the left lower chest. No definite cardiomegaly, CHF, inf iltrate. Laboratory done in [place], CBC normal. BNP 140. Troponin 0.065, glucose 130. Sodiu m 147, potassium 4.1, chloride 112, BUN 21, creatinine 0.89. ADMITTING DIAGNOSES: 1. Chest pain with evidence of non-ST elevation myocardial infarction. He is 3 weeks status post a similar episode that resulted in cardiac catheterization, severe coronary artery disease. His cardia c catheterization 09/06/2018, LAD 100% mid, circumflex 80% proximal, obtuse marginal 100%, right dante nary artery 100% mid, 4 of 5 grafts occluded. Patent GUTIERREZ to LAD. EF 35%-40%. 2. Parkinson's disease. 3. Hypertension. 4. Dyslipidemia. 5. Ischemic cardiomyopathy. DISCUSSION: Difficult situation. PLAN: 1. Serial enzymes. 2. Low dose Lovenox. 3. Topical nitrates, sublingual nitrates, oral nitrates. Continue beta blockers, etc. This unfortunate gentleman has no real options. I will discuss the case with his house nurse and we will go from there.
[2018-10-01] MEDS: Carvedilol 3.125 MG TAB PO SCH ×2 (08:53→16:18)
[2018-10-01] MEDS: Clopidogrel Bisulfate 75 MG TAB PO SCH (08:54)
[2018-10-01] MEDS: OLANZapine 2.5 MG TAB PO SCH (08:54)
[2018-10-01] MEDS: Cyanocobalamin (Vitamin B-12) 1,000 MCG TAB PO SCH (08:54)
[2018-10-01] MEDS ORDERED: Enoxaparin Sodium 40 MG/0.4 ML SYRINGE SC SCH (09:00)
[2018-10-01] MEDS ORDERED: Aspirin 325 MG TAB PO SCH (09:00)
[2018-10-01 18:41] LABS: Hemoglobin 15.3 g/dL (14.0-18.0); Platelet Count 200 thou/uL (130-400)
[2018-10-01] MEDS: Lisinopril 5 MG TAB PO SCH (20:50)
[2018-10-01] MEDS: Enoxaparin Sodium 80 MG/0.8 ML SYRINGE SC SCH (20:50)
[2018-10-01] MEDS: Atorvastatin Calcium 20 MG TAB PO SCH (20:50)
--- NOTE | 2018-10-01 23:04 | CON ---
DATE OF CONSULT: 10/01/18 HISTORY OF PRESENT ILLNESS: The patient is an unfortunate 63-year-old gentleman with severe coronary artery disease who presents with recurrent chest discomfort. The patient underwent coronary bypass surgery in 2006. He had dante nary bypass surgery x5. The patient also suffers from severe Parkinson's disease. The patient has p reviously undergone placement of electronic pacemaker for sick sinus syndrome. The patient was most recently hospitalized with a non-Q-wave myocardial infarction. He underwent a cardiac catheterizatio n and was found to have four occluded grafts. It was felt best for the patient to continue on medica l therapy. The patient presented with increasing chest discomfort. The patient was in his usual sta te when he developed substernal chest discomfort. He took 3 nitroglycerins. The chest pain did not resolve. He presented to the emergency room for further evaluation. The patient states the chest pa in lasts for approximately 2 hours. He denies having any present discomfort. PAST MEDICAL HISTORY: 1. Coronary artery disease. 2. Hypertension. 3. Dyslipidemia. 4. Parkinson's disease. 5. Seizure disorder. 6. Depression. PAST SURGICAL HISTORY: Coronary bypass surgery. He has had a brain stimulator. MEDICATIONS: See nursing list. ALLERGIES: Morphine, Benadryl and Seroquel. FAMILY HISTORY: Positive family history of heart disease. SOCIAL HISTORY: Lives in [place] PHYSICAL EXAMINATION: GENERAL: This is a middle-aged gentleman in no acute distress. VITAL SIGNS: Blood pressure 149/88. NECK: Showed no jugular venous distention. LUNGS: Clear to auscultation. HEART: Regular rate and rhythm, normal S1, S2, no murmurs. ABDOMEN: Nondistended. EXTREMITIES: Showed trace edema. VASCULAR: Radial pulses 2+. LABORATORY DATA: Sodium 146, potassium 4.1, chloride 100, bicarbonate 30, BUN 20, creatinine 0.84, g lucose was 94. White blood cell count is 5.8, hemoglobin 14.5, hematocrit 45.6, platelets 184. His EKG revealed normal sinus rhythm, Q-waves suggestive of previous inferior infarct. IMPRESSION: 1. Unstable angina. 2. History of coronary bypass surgery with four out of five occluded grafts. 3. Hypertension. 4. Dyslipidemia. 5. Depression. 6. Severe Parkinson's disease. This unfortunate gentleman presents with unstable angina. At this time, we will treat the patient wi th full dose Lovenox. Will increase the patient's Ranexa. The patient's prognosis is very guarded. We will follow this patient with you through his hospitalization.
[2018-10-02] MEDS: Nitroglycerin 2% Ointment 1 INCH/1 GM Packet TOP SCH ×3 (06:02→20:30)
[2018-10-02] MEDS: Enoxaparin Sodium 80 MG/0.8 ML SYRINGE SC SCH ×2 (09:29→20:30)
[2018-10-02] MEDS: Cyanocobalamin (Vitamin B-12) 1,000 MCG TAB PO SCH (09:29)
[2018-10-02] MEDS: OLANZapine 2.5 MG TAB PO SCH (09:29)
[2018-10-02] MEDS: Carvedilol 3.125 MG TAB PO SCH ×2 (09:29→17:16)
[2018-10-02] MEDS: Clopidogrel Bisulfate 75 MG TAB PO SCH (09:30)
--- NOTE | 2018-10-02 14:52 | PDOC.PN ---
- Subjective Encounter Start Date: 10/02/18 Encounter Start Time: 09:50 Subjective: no more chest pain - Objective Resuscitation Status: Resuscitation Status DNR:Do Not Resuscitate MAR Reviewed: Yes Vital Signs & Weight: Vital Signs (12 hours) Temp Pulse Resp BP Pulse Ox 10/02/18 12:00 97.5 F L 55 L 18 126/66 94 L 10/02/18 08:00 98.1 F 51 L 18 139/71 93 L 10/02/18 05:56 98 F 55 L 18 125/68 94 L Weight Weight 193 lb 5 oz I&O: 10/01/18 10/02/18 10/03/18 06:59 06:59 06:59 Intake Total 120 630 Output Total 700 1030 Balance -580 -400 Result Diagrams: 10/01/18 18:23 10/01/18 18:23 Phys Exam - Physical Examination HEENT: PERRLA, moist MMs, sclera anicteric, TM's clear, oral pharynx no lesions , 2+ tonsils Neck: no nodes, no JVD, supple, full ROM Respiratory: no wheezing, no rales, no rhonchi, clear to auscultation bilateral Cardiovascular: RRR, no significant murmur, no rub Gastrointestinal: soft, non-tender, no distention, positive bowel sounds Musculoskeletal: pulses present, edema present Neurological: non-focal, normal sensation, moves all 4 limbs Psychiatric: normal affect, A&O x 3 Skin: no rash, normal turgor, cap refill <2 seconds Dx/Plan (1) CAD (coronary artery disease) of bypass graft Code(s): I25.810 - ATHEROSCLEROSIS OF CABG W/O ANGINA PECTORIS Status: Chronic Qualifiers: [place] vs. transplanted heart: [place] heart Associated angina: with unstable angina Qualified Code(s): I25.700 - Atherosclerosis of coronary artery bypass graft(s), unspecified, with unstable angina pectoris (2) NSTEMI (non-ST elevated myocardial infarction) Code(s): I21.4 - NON-ST ELEVATION (NSTEMI) MYOCARDIAL INFARCTION Status: Acute Plan: repeat cath shows obstructed stents, no plans for any surgical intervention, continue aggressive medical management (3) Hyperlipidemia Code(s): E78.5 - HYPERLIPIDEMIA, UNSPECIFIED Status: Chronic Qualifiers: Comment: continue home meds (4) Hypertension Code(s): I10 - ESSENTIAL (PRIMARY) HYPERTENSION Status: Chronic Qualifiers: Hypertension type: essential hypertension (5) Parkinsons disease Code(s): G20 - PARKINSON'S DISEASE Status: Chronic Comment: chronic severe parkinson's disease, continue home meds - Plan * .
[2018-10-02] MEDS: Lisinopril 5 MG TAB PO SCH (20:30)
[2018-10-02] MEDS: Atorvastatin Calcium 20 MG TAB PO SCH (20:30)
[2018-10-03] MEDS: Nitroglycerin 2% Ointment 1 INCH/1 GM Packet TOP SCH ×3 (05:35→20:04)
[2018-10-03] MEDS: Cyanocobalamin (Vitamin B-12) 1,000 MCG TAB PO SCH (09:48)
[2018-10-03] MEDS: Clopidogrel Bisulfate 75 MG TAB PO SCH (09:49)
[2018-10-03] MEDS: Carvedilol 3.125 MG TAB PO SCH ×2 (09:49→17:54)
[2018-10-03] MEDS: OLANZapine 2.5 MG TAB PO SCH (09:49)
[2018-10-03] MEDS: Enoxaparin Sodium 80 MG/0.8 ML SYRINGE SC SCH (09:49)
[2018-10-03] MEDS: Carbidopa/Levodopa 25-100 mg Tablet PO SCH ×4 (09:51→20:03)
--- NOTE | 2018-10-03 14:30 | PDOC.PN ---
- Subjective Encounter Start Date: 10/03/18 Encounter Start Time: 11:55 Subjective: complaining of abd pain - Objective Resuscitation Status: Resuscitation Status DNR:Do Not Resuscitate MAR Reviewed: Yes Vital Signs & Weight: Vital Signs (12 hours) Temp Pulse Resp BP Pulse Ox 10/03/18 12:00 97.5 F L 61 18 140/74 93 L 10/03/18 08:00 97.2 F L 62 18 138/72 92 L 10/03/18 05:15 97.7 F 61 20 155/76 H 91 L Weight Weight 188 lb 1 oz I&O: 10/02/18 10/03/18 10/04/18 06:59 06:59 06:59 Intake Total 630 1000 Output Total 1030 400 Balance -400 600 Result Diagrams: 10/01/18 18:23 10/01/18 18:23 Phys Exam - Physical Examination HEENT: PERRLA, moist MMs, sclera anicteric, TM's clear, oral pharynx no lesions , 2+ tonsils Neck: no nodes, no JVD, supple, full ROM Respiratory: no wheezing, no rales, no rhonchi, wheezing present, clear to auscultation bilateral Cardiovascular: RRR, no significant murmur, no rub, gallop, irregular Gastrointestinal: soft, no distention, positive bowel sounds tender apigastric area Musculoskeletal: no edema, pulses present does not follow commands Lymphatic: no nodes Deviation from normal: awake, oriented X 1 Dx/Plan (1) CAD (coronary artery disease) of bypass graft Code(s): I25.810 - ATHEROSCLEROSIS OF CABG W/O ANGINA PECTORIS Status: Chronic Qualifiers: [place] vs. transplanted heart: [place] heart Associated angina: with unstable angina Qualified Code(s): I25.700 - Atherosclerosis of coronary artery bypass graft(s), unspecified, with unstable angina pectoris (2) NSTEMI (non-ST elevated myocardial infarction) Code(s): I21.4 - NON-ST ELEVATION (NSTEMI) MYOCARDIAL INFARCTION Status: Acute (3) Hyperlipidemia Code(s): E78.5 - HYPERLIPIDEMIA, UNSPECIFIED Status: Chronic Qualifiers: Comment: continue home meds (4) Hypertension Code(s): I10 - ESSENTIAL (PRIMARY) HYPERTENSION Status: Chronic Qualifiers: Hypertension type: essential hypertension (5) Parkinsons disease Code(s): G20 - PARKINSON'S DISEASE Status: Chronic Comment: chronic severe parkinson's disease, continue home meds - Plan cont current plan of care, DVT proph w/lovenox palliative on board, medical management only. ready to be discharged * .
[2018-10-03 18:48] LABS: Hemoglobin 16.3 g/dL (14.0-18.0); Platelet Count 197 thou/uL (130-400)
[2018-10-03] MEDS: Atorvastatin Calcium 20 MG TAB PO SCH (20:03)
[2018-10-03] MEDS: Lisinopril 5 MG TAB PO SCH (20:08)
[2018-10-04] MEDS: HYDROcodone/Acetaminophen 7.5/325 mg Tablet PO PRN (01:43)
[2018-10-04] MEDS: Carbidopa/Levodopa 25-100 mg Tablet PO SCH ×6 (04:19→20:44)
[2018-10-04] MEDS: Nitroglycerin 2% Ointment 1 INCH/1 GM Packet TOP SCH (05:40)
--- NOTE | 2018-10-04 07:19 | PDOC.PN ---
- Subjective Encounter Start Date: 10/04/18 Encounter Start Time: 07:18 Subjective: constipated, no BM in 5 days. had chest pain with sob yesterday - Objective Resuscitation Status: Resuscitation Status DNR:Do Not Resuscitate MAR Reviewed: Yes Vital Signs & Weight: Vital Signs (12 hours) Temp Pulse Resp BP Pulse Ox 10/04/18 05:30 97.4 F L 53 L 21 H 125/67 93 L 10/03/18 23:20 98.0 F 57 L 17 121/67 91 L 10/03/18 20:08 56 L 10/03/18 19:57 98.2 F 60 16 94/51 L 92 L Weight Weight 189 lb 4 oz I&O: 10/03/18 10/04/18 10/05/18 06:59 06:59 06:59 Intake Total 1000 630 Output Total 400 Balance 600 630 Result Diagrams: 10/03/18 18:36 10/03/18 18:36 Phys Exam - Physical Examination Neck: no JVD Respiratory: clear to auscultation bilateral Cardiovascular: RRR, no significant murmur Gastrointestinal: soft, positive bowel sounds Musculoskeletal: no edema Dx/Plan (1) CAD (coronary artery disease) of bypass graft Code(s): I25.810 - ATHEROSCLEROSIS OF CABG W/O ANGINA PECTORIS Status: Chronic Qualifiers: [place] vs. transplanted heart: [place] heart Associated angina: with unstable angina Qualified Code(s): I25.700 - Atherosclerosis of coronary artery bypass graft(s), unspecified, with unstable angina pectoris (2) NSTEMI (non-ST elevated myocardial infarction) Code(s): I21.4 - NON-ST ELEVATION (NSTEMI) MYOCARDIAL INFARCTION Status: Acute Comment: medica management only, not a candidate for any surgical intervention. Plans for palliative care? (3) Hyperlipidemia Code(s): E78.5 - HYPERLIPIDEMIA, UNSPECIFIED Status: Chronic Qualifiers: Comment: continue home meds (4) Hypertension Code(s): I10 - ESSENTIAL (PRIMARY) HYPERTENSION Status: Chronic Qualifiers: Hypertension type: essential hypertension (5) Parkinsons disease Code(s): G20 - PARKINSON'S DISEASE Status: Chronic Comment: chronic severe parkinson's disease, continue home meds (6) Unstable angina due to arteriosclerosis of coronary artery bypass graft Code(s): I25.700 - ATHEROSCLEROSIS OF CABG, UNSP, W UNSTABLE ANGINA PECTORIS Status: Acute - Plan miralax for constipation -: cont to have chest pain despite max med tx. tx dose lovenox -: discuss with cardiology * .
[2018-10-04] MEDS ORDERED: Polyethylene Glycol 3350 17 GM Packet PO SCH (07:30)
[2018-10-04] MEDS: Enoxaparin Sodium 80 MG/0.8 ML SYRINGE SC SCH (09:04)
[2018-10-04] MEDS: Cyanocobalamin (Vitamin B-12) 1,000 MCG TAB PO SCH (09:05)
[2018-10-04] MEDS: Clopidogrel Bisulfate 75 MG TAB PO SCH (09:05)
[2018-10-04] MEDS: Carvedilol 3.125 MG TAB PO SCH ×2 (09:06→17:23)
[2018-10-04] MEDS: OLANZapine 2.5 MG TAB PO SCH (09:06)
--- NOTE | 2018-10-04 11:31 | PDOC.CTH ---
<Lara Prasad - Last Filed: 10/04/18 11:36> Cardiology Progress Note - Subjective The pt seen and examined. No overnight events. No cardiac complaints. Per the pt, he has not had BM for a while. However, per I&O record, he had BM this AM. - Objective Vital Signs Temp Pulse Resp BP Pulse Ox 10/04/18 08:00 97.5 F L 52 L 20 144/69 H 92 L 10/04/18 05:30 97.4 F L 53 L 21 H 125/67 93 L Weight 189 lb 4 oz 10/03/18 10/04/18 10/05/18 06:59 06:59 06:59 Intake Total 1000 630 Output Total 400 Balance 600 630 - Physical Examination General/Neuro: alert & oriented x3 Lungs: CTA Heart: RRR Abdomen: soft Extremities: other: (No edema) - Telemetry Telemetry Rhythm: SR 86 with PACs - Labs Result Diagrams: 10/03/18 18:36 10/03/18 18:36 Troponin/CKMB CK-MB (CK-2) 4.9 ng/mL (0-6.6) 09/30/18 14:44 Troponin I 0.103 ng/mL (< 0.028) H 09/30/18 21:00 - Assessment/Plan 1. NSTEMI (with s/p LHC on 09/08/18 with 4/5 graft occluded, 75% stenosis in mid JOAQUIN, patent GUTIERREZ-LAD, EF 35-40%, and global hypokinesis. No good candidated for Re-CABG due to multiple medical problems) - stable with Imdur and Ranexa 1000mg BID; cont. to monitor 2. CAD with Hx of CABG - stable with Coreg 3.125mg BID, Lisinoprol 5mg qd, Imdur 60mg qd, ASA 81mg qd, Plavix 75mg qd, Statin; 3. HTN - stable with current medication 4. Hyperlipidemia - on statin 5. Hx of seizure - 6. Perkinsons disease - MAR reviewed . Review of Systems - Review of Systems Constitutional: reports: no symptoms reported EENTM: reports: no symptoms reported Respiratory: reports: no symptoms reported Cardiac (ROS): reports: no symptoms reported ABD/GI: reports: no symptoms reported : reports: no symptoms reported Musculoskeletal: reports: no symptoms reported <Wilmer Castañeda - Last Filed: 10/04/18 18:28> Cardiology Progress Note - Objective Vital Signs Temp Pulse Resp BP Pulse Ox 10/04/18 17:21 56 L 119/65 10/04/18 16:37 97.6 F 10/04/18 16:30 54 L 18 111/64 92 L 10/04/18 11:44 97.5 F L 53 L 16 88/52 L 92 L 10/04/18 08:00 97.5 F L 52 L 20 144/69 H 92 L Weight 189 lb 4 oz 10/03/18 10/04/18 10/05/18 06:59 06:59 06:59 Intake Total 1000 630 960 Output Total 400 Balance 600 630 960 - Labs Result Diagrams: 10/03/18 18:36 10/03/18 18:36 Troponin/CKMB CK-MB (CK-2) 4.9 ng/mL (0-6.6) 09/30/18 14:44 Troponin I 0.103 ng/mL (< 0.028) H 09/30/18 21:00 - Assessment/Plan Pt. seen and eval. by me. He denies any chest pain at this time. Difficult situation due to severe CAD and graft occlusions. Try medical management. Recath as a last resort to control symptoms.
[2018-10-04] MEDS: Acetaminophen 325 MG TAB PO PRN (13:39)
[2018-10-04] MEDS: Lisinopril 5 MG TAB PO SCH (20:44)
[2018-10-04] MEDS: Atorvastatin Calcium 20 MG TAB PO SCH (20:44)
[2018-10-05] MEDS: Carbidopa/Levodopa 25-100 mg Tablet PO SCH ×6 (01:51→21:33)
[2018-10-05] MEDS: HYDROcodone/Acetaminophen 7.5/325 mg Tablet PO PRN ×2 (04:59→11:19)
--- NOTE | 2018-10-05 07:12 | PDOC.PN ---
- Subjective Encounter Start Date: 10/05/18 Encounter Start Time: 07:11 Subjective: nopain past 24hrs - Objective Resuscitation Status: Resuscitation Status DNR:Do Not Resuscitate MAR Reviewed: Yes Vital Signs & Weight: Vital Signs (12 hours) Temp Pulse Resp BP Pulse Ox 10/05/18 04:00 97.4 F L 52 L 18 137/63 92 L 10/04/18 20:44 63 10/04/18 19:30 97.7 F 63 18 111/65 93 L Weight Weight 185 lb 9.6 oz I&O: 10/04/18 10/05/18 10/06/18 06:59 06:59 06:59 Intake Total 630 1440 Balance 630 1440 Result Diagrams: 10/03/18 18:36 10/03/18 18:36 Phys Exam - Physical Examination Neck: no JVD Respiratory: clear to auscultation bilateral Cardiovascular: RRR, no significant murmur Gastrointestinal: soft, positive bowel sounds Musculoskeletal: no edema Dx/Plan (1) CAD (coronary artery disease) of bypass graft Code(s): I25.810 - ATHEROSCLEROSIS OF CABG W/O ANGINA PECTORIS Status: Chronic Qualifiers: [place] vs. transplanted heart: [place] heart Associated angina: with unstable angina Qualified Code(s): I25.700 - Atherosclerosis of coronary artery bypass graft(s), unspecified, with unstable angina pectoris (2) NSTEMI (non-ST elevated myocardial infarction) Code(s): I21.4 - NON-ST ELEVATION (NSTEMI) MYOCARDIAL INFARCTION Status: Acute Comment: medica management only, not a candidate for any surgical intervention. Plans for palliative care? (3) Hyperlipidemia Code(s): E78.5 - HYPERLIPIDEMIA, UNSPECIFIED Status: Chronic Qualifiers: Comment: continue home meds (4) Hypertension Code(s): I10 - ESSENTIAL (PRIMARY) HYPERTENSION Status: Chronic Qualifiers: Hypertension type: essential hypertension (5) Parkinsons disease Code(s): G20 - PARKINSON'S DISEASE Status: Chronic Comment: chronic severe parkinson's disease, continue home meds (6) Unstable angina due to arteriosclerosis of coronary artery bypass graft Code(s): I25.700 - ATHEROSCLEROSIS OF CABG, UNSP, W UNSTABLE ANGINA PECTORIS Status: Acute - Plan cont currenttx -: discuss withDr Castañeda * .
[2018-10-05] MEDS: Enoxaparin Sodium 80 MG/0.8 ML SYRINGE SC SCH (10:20)
[2018-10-05] MEDS: Clopidogrel Bisulfate 75 MG TAB PO SCH (10:21)
[2018-10-05] MEDS: Cyanocobalamin (Vitamin B-12) 1,000 MCG TAB PO SCH (10:22)
[2018-10-05] MEDS: OLANZapine 2.5 MG TAB PO SCH (10:22)
[2018-10-05] MEDS: Carvedilol 3.125 MG TAB PO SCH ×2 (10:23→16:55)
--- NOTE | 2018-10-05 10:59 | PDOC.CTH ---
Cardiology Progress Note - Objective Vital Signs Temp Pulse Resp BP Pulse Ox 10/05/18 04:00 97.4 F L 52 L 18 137/63 92 L Weight 185 lb 9.6 oz 10/04/18 10/05/18 10/06/18 06:59 06:59 06:59 Intake Total 630 1440 Balance 630 1440 - Physical Examination General/Neuro: alert & oriented x3 Neck: carotid US brisk Lungs: CTA Heart: RRR Abdomen: soft - Labs Result Diagrams: 10/03/18 18:36 10/03/18 18:36 Troponin/CKMB CK-MB (CK-2) 4.9 ng/mL (0-6.6) 09/30/18 14:44 Troponin I 0.103 ng/mL (< 0.028) H 09/30/18 21:00 - Assessment/Plan 1. NSTEMI (with s/p LHC on 09/08/18 with 4/5 graft occluded, 75% stenosis in mid JOAQUIN, patent GUTIERREZ-LAD, EF 35-40%, and global hypokinesis. No good candidated for Re-CABG due to multiple medical problems and no reasonable targets to redo. The GUTIERREZ to the LAD is good and the distal LAD is free of disease.) - stable with Imdur and Ranexa 1000mg BID; cont. to monitor. Seems to be doing well on the Ranexa. 2. CAD with Hx of CABG - stable with Coreg 3.125mg BID, Lisinoprol 5mg qd, Imdur 60mg qd, ASA 81mg qd, Plavix 75mg qd, Statin; 3. HTN - stable with current medication 4. Hyperlipidemia - on statin 5. Hx of seizure - 6. Parkinsons disease - MAR reviewed
[2018-10-05 19:39] LABS: Hemoglobin 15.2 g/dL (14.0-18.0); Platelet Count 174 thou/uL (130-400)
[2018-10-05] MEDS: Atorvastatin Calcium 20 MG TAB PO SCH (21:31)
[2018-10-05] MEDS: Lisinopril 5 MG TAB PO SCH (21:31)
[2018-10-06] MEDS: Carbidopa/Levodopa 25-100 mg Tablet PO SCH ×6 (02:49→21:06)
--- NOTE | 2018-10-06 07:13 | PDOC.PN ---
- Subjective Encounter Start Date: 10/06/18 Encounter Start Time: 07:11 Subjective: no distress,code green last nite for decreased responsiveness, - Objective Resuscitation Status: Resuscitation Status DNR:Do Not Resuscitate MAR Reviewed: Yes Vital Signs & Weight: Vital Signs (12 hours) Temp Pulse Pulse Resp Resp BP BP 10/06/18 03:37 97.7 F 61 18 146/71 H 10/05/18 21:40 55 L 56 L 18 12 134/66 134/66 10/05/18 21:31 113/64 Pulse Ox Pulse Ox 10/06/18 03:37 92 L 10/05/18 21:40 93 L 93 L 10/05/18 21:31 Weight Weight 186 lb 3.2 oz I&O: 10/05/18 10/06/18 10/07/18 06:59 06:59 06:59 Intake Total 1440 1200 Balance 1440 1200 Result Diagrams: 10/05/18 19:29 10/05/18 19:29 Additional Labs: Accuchecks 10/05/18 21:44 POC Glucose 115 H Phys Exam - Physical Examination Neck: no JVD Respiratory: clear to auscultation bilateral Cardiovascular: RRR, no significant murmur Gastrointestinal: soft, positive bowel sounds Musculoskeletal: edema present Dx/Plan (1) CAD (coronary artery disease) of bypass graft Code(s): I25.810 - ATHEROSCLEROSIS OF CABG W/O ANGINA PECTORIS Status: Chronic Qualifiers: [place] vs. transplanted heart: [place] heart Associated angina: with unstable angina Qualified Code(s): I25.700 - Atherosclerosis of coronary artery bypass graft(s), unspecified, with unstable angina pectoris (2) NSTEMI (non-ST elevated myocardial infarction) Code(s): I21.4 - NON-ST ELEVATION (NSTEMI) MYOCARDIAL INFARCTION Status: Acute Comment: medica management only, not a candidate for any surgical intervention. Plans for palliative care? (3) Hyperlipidemia Code(s): E78.5 - HYPERLIPIDEMIA, UNSPECIFIED Status: Chronic Qualifiers: Comment: continue home meds (4) Hypertension Code(s): I10 - ESSENTIAL (PRIMARY) HYPERTENSION Status: Chronic Qualifiers: Hypertension type: essential hypertension (5) Parkinsons disease Code(s): G20 - PARKINSON'S DISEASE Status: Chronic Comment: chronic severe parkinson's disease, continue home meds (6) Unstable angina due to arteriosclerosis of coronary artery bypass graft Code(s): I25.700 - ATHEROSCLEROSIS OF CABG, UNSP, W UNSTABLE ANGINA PECTORIS Status: Acute - Plan difficult situationm severe parkinsons,severe CAD on maximumtx, -: will cont current tx,again discuss with cardiiology -: nursing staff thinks he just doesnt [facility] * .
[2018-10-06] MEDS: Enoxaparin Sodium 80 MG/0.8 ML SYRINGE SC SCH (09:20)
[2018-10-06] MEDS: Carvedilol 3.125 MG TAB PO SCH ×2 (09:20→17:11)
[2018-10-06] MEDS: Clopidogrel Bisulfate 75 MG TAB PO SCH (09:20)
[2018-10-06] MEDS: Cyanocobalamin (Vitamin B-12) 1,000 MCG TAB PO SCH (09:20)
[2018-10-06] MEDS: OLANZapine 2.5 MG TAB PO SCH (09:21)
[2018-10-06] MEDS: Acetaminophen 325 MG TAB PO PRN (17:10)
[2018-10-06] MEDS: Atorvastatin Calcium 20 MG TAB PO SCH (21:05)
[2018-10-06] MEDS: Lisinopril 5 MG TAB PO SCH (21:06)
[2018-10-06] MEDS: HYDROcodone/Acetaminophen 7.5/325 mg Tablet PO PRN (22:59)
[2018-10-07] MEDS: Carbidopa/Levodopa 25-100 mg Tablet PO SCH ×4 (03:19→15:31)
[2018-10-07] MEDS: Carvedilol 3.125 MG TAB PO SCH (08:34)
[2018-10-07] MEDS: Enoxaparin Sodium 80 MG/0.8 ML SYRINGE SC SCH (08:34)
[2018-10-07] MEDS: Clopidogrel Bisulfate 75 MG TAB PO SCH (08:34)
[2018-10-07] MEDS: Cyanocobalamin (Vitamin B-12) 1,000 MCG TAB PO SCH (08:34)
[2018-10-07] MEDS: OLANZapine 2.5 MG TAB PO SCH (09:55)
--- NOTE | 2018-10-07 11:25 | PDOC.CTH ---
Cardiology Progress Note - Subjective The pt seen and examined. No overnight events. No cardiac complaints. He is very sleepy this AM. - Objective Vital Signs Temp Pulse Resp BP Pulse Ox 10/07/18 07:35 97.4 F L 67 18 147/66 H 96 10/07/18 03:53 97.2 F L 55 L 18 143/63 H 93 L Weight 180 lb 9.6 oz 10/06/18 10/07/18 10/08/18 06:59 06:59 06:59 Intake Total 1200 840 Output Total 200 Balance 1200 640 - Physical Examination General/Neuro: alert & oriented x3 Neck: no JVD present Lungs: CTA, other: (diminished at bases) Heart: RRR Abdomen: soft Extremities: other: (No edema) - Telemetry Telemetry Rhythm: SB 50-60s - Labs Result Diagrams: 10/05/18 19:29 10/05/18 19:29 Troponin/CKMB CK-MB (CK-2) 4.9 ng/mL (0-6.6) 09/30/18 14:44 Troponin I 0.103 ng/mL (< 0.028) H 09/30/18 21:00 - Assessment/Plan 1. NSTEMI (with s/p LHC on 09/08/18 with 4/5 graft occluded, 75% stenosis in mid JOAQUIN, patent GUTIERREZ-LAD, EF 35-40%, and global hypokinesis. No good candidated for Re-CABG due to multiple medical problems and no reasonable targets to redo. The GUTIERREZ to the LAD is good and the distal LAD is free of disease.) - stable with Imdur and Ranexa 1000mg BID; cont. to monitor. Seems to be doing well on the Ranexa. Cont. medical treatment only. 2. CAD with Hx of CABG - stable with Coreg 3.125mg BID, Lisinoprol 5mg qd, Imdur 60mg qd, ASA 81mg qd, Plavix 75mg qd, Statin; 3. HTN - stable with current medication 4. Hyperlipidemia - on statin 5. Hx of seizure - 6. Parkinsons disease - MAR reviewed Review of Systems - Review of Systems Constitutional: reports: no symptoms reported EENTM: reports: no symptoms reported Respiratory: reports: no symptoms reported Cardiac (ROS): reports: no symptoms reported ABD/GI: reports: no symptoms reported : reports: no symptoms reported
--- NOTE | 2018-10-07 12:05 | PDOC.PN ---
- Subjective Encounter Start Date: 10/07/18 Encounter Start Time: 08:20 Subjective: no c/o chest pain or sob -: feels better - Objective Resuscitation Status: Resuscitation Status DNR:Do Not Resuscitate MAR Reviewed: Yes Vital Signs & Weight: Vital Signs (12 hours) Temp Pulse Resp BP Pulse Ox 10/07/18 08:00 96 10/07/18 07:35 97.4 F L 67 18 147/66 H 96 10/07/18 03:53 97.2 F L 55 L 18 143/63 H 93 L Weight Weight 180 lb 9.6 oz I&O: 10/06/18 10/07/18 10/08/18 06:59 06:59 06:59 Intake Total 1200 840 Output Total 200 Balance 1200 640 Result Diagrams: 10/05/18 19:29 10/05/18 19:29 Phys Exam - Physical Examination HEENT: PERRLA, moist MMs Neck: no JVD, supple Respiratory: no wheezing, no rales Cardiovascular: RRR, no significant murmur Gastrointestinal: soft, non-tender, positive bowel sounds Musculoskeletal: no edema, pulses present Neurological: non-focal, moves all 4 limbs Psychiatric: normal affect, A&O x 3 Dx/Plan (1) NSTEMI (non-ST elevated myocardial infarction) Code(s): I21.4 - NON-ST ELEVATION (NSTEMI) MYOCARDIAL INFARCTION Status: Acute Comment: medica management only, not a candidate for any surgical intervention. (2) Hyperlipidemia Code(s): E78.5 - HYPERLIPIDEMIA, UNSPECIFIED Status: Chronic Qualifiers: Comment: continue home meds (3) Hypertension Code(s): I10 - ESSENTIAL (PRIMARY) HYPERTENSION Status: Chronic Qualifiers: Hypertension type: essential hypertension (4) CAD (coronary artery disease) of bypass graft Code(s): I25.810 - ATHEROSCLEROSIS OF CABG W/O ANGINA PECTORIS Status: Chronic Qualifiers: [place] vs. transplanted heart: [place] heart Associated angina: with stable angina Qualified Code(s): I25.708 - Atherosclerosis of coronary artery bypass graft(s), unspecified, with other forms of angina pectoris (5) Parkinsons disease Code(s): G20 - PARKINSON'S DISEASE Status: Chronic Comment: chronic severe parkinson's disease, continue home meds - Plan on ranexa high dose along with imdur, asp, plavix and lipitor -: continue coreg and lisinopril -: dc pt to snf -: hemostable * .
[2018-10-07 12:20] VITALS: BP 113/57; TEMP 97.3
--- NOTE | 2018-10-07 19:54 | DIS ---
DATE OF ADMISSION: 09/30/2018 DATE OF DISCHARGE: 10/07/2018 DISCHARGE DISPOSITION: To alf in [place]. PRIMARY DISCHARGE DIAGNOSES: Non-ST early elevation myocardial infarction. Patient has severe coron chidi artery disease with 3/4 grafts occluded and is for medical management, dyslipidemia, hypertension , Parkinson's disease. PROCEDURES DONE DURING HOSPITALIZATION: H&H 15 and 47, platelet count 174. Troponin I 0.10, BUN 20, creatinine 0.8, troponin I was indeterminate peaking up to 0.11, CK-MB 4.9. INPATIENT CONSULTS: Dr. Quiles/Maddy for Cardiology. DISCHARGE PLAN: Patient to follow up with Dr. Castañeda as advised and primary care physician in 1 week. DISCHARGE MEDICATIONS: Aspirin 81 mg p.o. daily, Plavix 75 mg p.o. daily, Imdur 60 mg p.o. daily, Ra nexa 1000 mg p.o. twice daily, lisinopril 5 mg p.o. at bedtime, carvedilol 3.125 mg p.o. twice daily, atorvastatin 20 mg p.o. at bedtime, Lyrica 50 mg twice daily, olanzapine 2.5 mg p.o. daily, meclizin e p.r.n., carbidopa/levodopa 25/250 mg 1 tab p.o. q.4 hourly and vitamin B12 of 1000 mcg p.o. daily. ALLERGIES: BENADRYL, MORPHINE, and SEROQUEL. BRIEF COURSE DURING HOSPITALIZATION: Patient was sent from alf due to complaints of pressur e-like chest pain. He has known history of coronary artery disease with prior CABG. He has had a re cent cardiac catheterization done on 09/06/2018 which showed 100% mid LAD, left circumflex, 80% proxi mal, OM 100% ramus intermediate 75% mid RCA, 100% mid, 4/5 grafts were occluded. Patent GUTIERREZ to LAD, no stenosis. Ejection fraction was 35-40% with global hypokinesis on the catheterization. Patient was essentially for medical management. He was placed on increased dose of Ranexa and Imdur was incr eased to 60 mg. He has remained chest pain free and is hemodynamically stable. He was closely monit ored on telemetry as well. He has been cleared by Cardiology for discharge. A total of 35 minutes was spent on discharge plan. Patient needs to follow up with Dr. Castañeda as advis ed and primary care physician in 1 week.
--- NOTE | 2018-10-08 17:21 | EKG ---
Test Reason : CP Blood Pressure : / mmHG Vent. Rate : 054 BPM Atrial Rate : 054 BPM P-R Int : 126 ms QRS Dur : 078 ms QT Int : 424 ms P-R-T Axes : 051 -37 018 degrees QTc Int : 402 ms Sinus bradycardia Left axis deviation Inferior infarct , age undetermined Abnormal ECG Confirmed by KRIS JACKSON, BENOIT ([id number]), assistant production editor GLENDA MOYA ([id number]) on 10/08/2018 5:20:32 PM Referred By: SCOTT Confirmed By:BENOIT PONCE MD
== END 2018-10-07 15:58 | DRG 282 ==
LOC: ERS 13:52 → OBSVTOIN 16:46 → 2NO 16:46
PROVIDERS: ADMIT Internal Medicine; ATTEND Internal Medicine
DX: I22.2 Subsequent non-ST elevation (NSTEMI) myocardial infarction (principal); I21.4 Non-ST elevation (NSTEMI) myocardial infarction; I25.700 Atherosclerosis of coronary artery bypass graft(s), unspecified, with unstable angina pectoris; I25.5 Ischemic cardiomyopathy; G20 Parkinson's disease; I10 Essential (primary) hypertension; E78.5 Hyperlipidemia, unspecified; Z97.8 Presence of other specified devices; Z66 Do not resuscitate; Z79.02 Long term (current) use of antithrombotics/antiplatelets; Z95.0 Presence of cardiac pacemaker; G40.909 Epilepsy, unspecified, not intractable, without status epilepticus; K59.00 Constipation, unspecified; Z82.49 Family history of ischemic heart disease and other diseases of the circulatory system; F32.9 Major depressive disorder, single episode, unspecified; Z88.5 Allergy status to narcotic agent; Z88.8 Allergy status to other drugs, medicaments and biological substances
CPT/HCPCS: 36415; 36416; 80048; 82565; 85014; 85018; 85025; 85049; 93005; 94760; J1650

== ENCOUNTER 2020-04-05 20:39 | Inpatient (IN) | payer OTHER ==
[2020-04-05 21:14] LABS: Hemoglobin 17.2 g/dL (14.0-18.0); Mean Corpuscular HGB CONC 32.7 g/dL (32.0-36.0); Mean Corpuscular Hemoglobin 31.2 pg (27.0-31.0); Mean Corpuscular Volume 95.3 fL (78.0-98.0); Mean Platelet Volume 7.7 fL (7.4-10.4); Platelet Count 161 thou/uL (130-400); RBC Distribution Width 13.3 % (11.5-14.5); Red Blood Cell (RBC) Count 5.52 mill/uL (4.70-6.10); White Blood Cell (WBC) Count 3.4 thou/uL (4.8-10.8)
[2020-04-05] MEDS ORDERED: Cefepime 2 GM VIAL ONE (21:16)
[2020-04-05] MEDS ORDERED: Vancomycin 1 GM/200 ML BAG ONE (21:16)
[2020-04-05 21:31] LABS: Band 11 % (5-11); Lymphocytes 3 % (21-51); MDiff Complete? YES; Metamyelocyte 1 % (0-0); Monocytes 26 % (0-10); Neutrophil 59 % (42-75); Platelet Morphology Comment Appears Adequate; RBC Morphology Normal
--- NOTE | 2020-04-05 21:33 | RAD ---
Chest AP view INDICATION: History of septic shock COMPARISON: Prior exam dated October 24, 2018 FINDINGS: Lungs: The lungs are clear Cardiac silhouette: Mild cardiomegaly is stable. Post-CABG change is similar appearing. Pulmonary vasculature: Normal Pleural spaces: No pleural effusion or pneumothorax is demonstrated. Upper abdomen: No abnormality seen. Osseous structures: No acute osseous abnormality. Additional findings: Generator pack and stimulator leads overlying the left chest wall and extending into the soft tissues of the left neck are stable. IMPRESSION: No acute cardiopulmonary abnormality.
[2020-04-05 21:35] LABS: ALT (SGPT) 7 U/L (8-55); AST (SGOT) 14 U/L (5-34); Albumin 3.4 g/dL (3.4-4.8); Alkaline Phosphatase 147 U/L (40-110); Anion Gap 17 mmol/L (10-20); BUN (Urea Nitrogen) 43 mg/dL (8.4-25.7); Bilirubin, Total 1.1 mg/dL (0.2-1.2); Calc. Creatinine Clearance 0 mL/min (70-130); Calcium 8.7 mg/dL (7.8-10.44); Carbon Dioxide 17 mmol/L (23-31); Chloride 114 mmol/L (98-107); Estimated GFR-MDRD 47; Globulin 2.5 g/dL (2.4-3.5); Glucose 133 mg/dL (80-115); Lipase 7 U/L (8-78); Potassium 4.5 mmol/L (3.5-5.1); Protein, Total 5.9 g/dL (5.8-8.1); Sodium 143 mmol/L (136-145)
--- NOTE | 2020-04-05 21:39 | CT ---
CT Brain WO Con: 04/05/2020 9:01 PM CLINICAL HISTORY: Worsening mental status and decreased responsiveness. IMAGING TECHNIQUE: Multiple CT images were obtained of the brain without IV contrast. COMPARISON: CT the brain without contrast dated February 21, 2019 FINDINGS: BRAIN: Evidence of infarct: No acute infarct is evident. There is mild chronic small vessel white matter is chemic change. There are stable bilateral thalamic stimulator leads projecting through bilateral frontal camila holes. Evidence of cranial hemorrhage: None. Evidence of midline shift: Third ventricle and septum pellucidum are midline. Ventricles: Normal. No hydrocephalus. SKULL: Intact. VISUALIZED PARANASAL SINUSES: Mild mucosal thickening is seen within the sphenoid sinus. The remaini ng paranasal sinuses are clear. MASTOID AIR CELLS: Clear. EXTRACRANIAL SOFT TISSUES: Normal. IMPRESSION: No acute intracranial abnormality.
[2020-04-05 21:48] LABS: Bacteria/HPF 4+ HPF (None Seen); Bilirubin Negative (Negative); Blood, Urine 3+ (Negative); Clarity Extra Turbid (Clear); Glucose, Urine (Dipstick) Normal (Negative); Leukocyte 500 Leu/uL (Negative); Nitrite Negative (Negative); Protein, Urine (Dipstick) 600 mg/dL (Neg-Trace); RBC/HPF Greater than 50 HPF (0-3); Squamous Epithelial None Seen HPF (0-3); Urobilinogen Normal mg/dL (Less than 2); WBC/HPF Greater than 50 HPF (0-3)
[2020-04-05 21:50] LABS: Triple Phosphate Crystal 1+ HPF (None Seen)
[2020-04-05 21:56] LABS: CKMB 0.5 ng/mL (0-6.6)
[2020-04-05] MEDS ORDERED: Acetaminophen 650 MG Suppository ONE (22:25)
[2020-04-05] MEDS ORDERED: Norepinephrine 8 MG/0.9% NS 250 ML ONE (22:56)
[2020-04-06] MEDS ORDERED: cloNIDine 0.1 MG TAB PO PRN (00:45)
[2020-04-06] MEDS ORDERED: Acetaminophen 325 MG TAB PO PRN (00:45)
[2020-04-06] MEDS ORDERED: Labetalol HCl 100 MG/20 ML VIAL SLOW IVP PRN (00:45)
[2020-04-06] MEDS ORDERED: Ondansetron PF 4 MG/2 ML Vial IVP PRN (00:45)
[2020-04-06] MEDS ORDERED: Promethazine HCl 12.5 MG in Sodium Chloride 0.9% 50 ML IVPB PRN (00:45)
[2020-04-06] MEDS ORDERED: Bisacodyl 5 MG TAB PO PRN (00:49)
[2020-04-06] MEDS ORDERED: CCU Electrolyte Replacement 1 EACH IVPB SCH (00:49)
[2020-04-06] MEDS ORDERED: Acetaminophen 650 MG/20.3 ML UDCUP PO PRN (00:49)
[2020-04-06] MEDS ORDERED: SYSTANE 3.5 GM TUBE EA EYE PRN (00:49)
[2020-04-06] MEDS ORDERED: Bisacodyl 10 MG SUPP PR PRN (00:49)
[2020-04-06] MEDS ORDERED: Acetaminophen 650 MG Suppository PR PRN (00:49)
[2020-04-06] MEDS ORDERED: Mag-Al 1200 mg/1200 mg/30 ML UDCUP PO PRN (00:49)
[2020-04-06] MEDS ORDERED: Milk Of Magnesia 30 ML UDCUP PO PRN (00:49)
[2020-04-06] MEDS ORDERED: Norepinephrine 8 MG/0.9% NS 250 ML IVPB PRN (00:49)
--- NOTE | 2020-04-06 00:58 | PDOC.HHP ---
Hospitalist HPI - History of Present Illness altered mental status History of Present Illness: patient is a 64 year old male with PMH NSTEMI, CABG, DM, HLD, b12/folate deficiency, parkinsons disease who presents to hospital as transfer from [facility] for altered mental status, [facility] notes report pelvic pain on 04/05 at 10am, not eating, urinated on self, urine culture and UA ordered and patient started on cipro/pyridium, he however became hypotensive, vomited, tachypneic, patient transferred to ED for further workup and care. Here, febrile to 102.7, sbp 90s, hr 120, recieved 3l ivf, rr was 32, lactic 4.2 , he recieved broad spectrum abx and cultures drawn, however BP failed to improve, central line placed, patient started on vasopressors, at time of my interview vitals normal, no distress but altered and unable to communicate currently, responds to noxious stimuli and pupils reactive. UA positive for infectious markers. Patient admitted for presumed septic shock due to UTI Hospitalist ROS - Review of Systems ROS unobtainable: due to mental status Hospitalist History - Past Medical History Other Medical History: Past medical history includes history of hyperlipidemia, Past medical history includes history of hypertension, Past medical history includes neurological disease, Parkinson's disease, DYSKINESIA D/T PARKINSONS, Notes: kidney stones, generalized weakness, Past medical history includes cardiac history, coronary artery disease, myocardial infarction, Past medical history includes history of hyperlipidemia, generalized seizures, Dx in 2006. MEDICAL NON-COMPLIANCE. NSTEMI , CAD, POST CABG, ADVANCED PARKINSONS, SEIZURES, CONSTIPATION, CKD STAGE 2, FREQUENT [place], DECONDITIONING, ANEMIA- VITAMIN B12 DEFIECIENCY, PSYCHOSIS- UNKNOWN, ERECTILE DYSFUNCTION, INSOMNIA, BENIGN PROSTATIC HYPERPLASIA, DYSTONIA , NON-COMPLIANCE. - Past Surgical History Other Surgical History: Surgical history of coronary artery bypass graft surgery, five vessels, Date of surgery 2006. BRAIN STIMULATOR. PACEMAKER left chest. - Family History Family History: reports: no pertinent history - Social History Other Social History: Lives in detention care facility, assisted living in [facility] Patient denies alcohol use, Patient denies drug use, Patient has no smoking history. Hospitalist Results - Labs Result Diagrams: 04/06/20 03:53 04/06/20 03:53 Lab results: WBC 3.4 thou/uL (4.8-10.8) L 04/05/20 20:58 Hgb 17.2 g/dL (14.0-18.0) 04/05/20 20:58 Hct 52.7 % (42.0-52.0) H 04/05/20 20:58 MCV 95.3 fL (78.0-98.0) 04/05/20 20:58 Plt Count 161 thou/uL (130-400) 04/05/20 20:58 Band Neuts % (Manual) 11 % (5-11) 04/05/20 20:58 Sodium 143 mmol/L (136-145) 04/05/20 20:58 Potassium 4.5 mmol/L (3.5-5.1) 04/05/20 20:58 Chloride 114 mmol/L (98-107) H 04/05/20 20:58 Carbon Dioxide 17 mmol/L (23-31) L 04/05/20 20:58 BUN 43 mg/dL (8.4-25.7) H 04/05/20 20:58 Creatinine 1.51 mg/dL (0.7-1.3) H 04/05/20 20:58 Glucose 133 mg/dL (80-115) H 04/05/20 20:58 Lactic Acid 4.2 mmol/L (0.5-2.2) H* 04/05/20 20:58 Calcium 8.7 mg/dL (7.8-10.44) 04/05/20 20:58 Total Bilirubin 1.1 mg/dL (0.2-1.2) 04/05/20 20:58 AST 14 U/L (5-34) 04/05/20 20:58 ALT 7 U/L (8-55) L 04/05/20 20:58 Alkaline Phosphatase 147 U/L (40-110) H 04/05/20 20:58 CK-MB (CK-2) 0.5 ng/mL (0-6.6) 04/05/20 20:55 Troponin I 0.038 ng/mL (< 0.028) H 04/05/20 20:55 Serum Total Protein 5.9 g/dL (5.8-8.1) 04/05/20 20:58 Albumin 3.4 g/dL (3.4-4.8) 04/05/20 20:58 Lipase 7 U/L (8-78) L 04/05/20 20:58 Urine Ketones Negative mg/dL (Negative) 04/05/20 21:04 Urine Blood 3+ (Negative) A 04/05/20 21:04 Urine Nitrite Negative (Negative) 04/05/20 21:04 Ur Leukocyte Esterase 500 Ifeanyi/uL (Negative) A 04/05/20 21:04 Urine RBC Greater than 50 HPF (0-3) A 04/05/20 21:04 Urine WBC Greater than 50 HPF (0-3) A 04/05/20 21:04 Ur Squamous Epith Cells None Seen HPF (0-3) 04/05/20 21:04 Urine Bacteria 4+ HPF (None Seen) A 04/05/20 21:04 Additional comment: VITAL SIGNS ThuApril 06, 2020 00:30 JAY Pritchett, Elliot BP: 112/72 (Lying) Pulse: 101 (Regular) Resp: 27 (Non-Labored) Temp: 101.7 (Criticore Temp) O2 sat: 98 on (Room Air) Time: 04/06/2020 00:30. Hospitalist H&P A/P - Plan Plan: Patient is a 64 year old male with PMH NSTEMI, CABG, DM, HLD, b12/folate deficiency, parkinsons disease who presents to hospital as transfer from [facility] for altered mental status. # septic shock with likely urinary source - admit to ICU - zosyn - follow cultures - repeat lactic acid in several hours, continue IVF - consult pulmonary # metabolic encephalopathy - due to infection, treat as above # parkinsons disease # history of CAD, NSTEMI, CABG # DM # HLD # b12/folate deficiency - resume home meds as appropriate, monitor closely in ICU OOH DNR signed previously and sent with patient, DNAR ordered entered. 50 minutes critical care time
[2020-04-06] MEDS ORDERED: Potassium Chloride 20 MEQ TAB PO PRN (01:16)
[2020-04-06] MEDS ORDERED: Magnesium 2 GM/50 ML 2 GM in Premix Bag 1 BAG IVPB PRN (01:16)
[2020-04-06] MEDS ORDERED: Potassium Chloride 40 MEQ in Sodium Chloride 0.9% 250 ML 250 ML IVPB PRN (01:16)
[2020-04-06] MEDS ORDERED: Potassium Phosphate 9 MMOL in Sodium Chloride 0.9% 100 ML IVPB PRN (01:16)
[2020-04-06] MEDS ORDERED: Potassium Phosphate 15 MMOL in Sodium Chloride 0.9% 250 ML 250 ML IV PRN (01:16)
[2020-04-06] MEDS ORDERED: PHOS-NAK 1 PKT PACK PO PRN ×2 (01:16)
[2020-04-06] MEDS ORDERED: CCU ELECTROLYTE REPLACEMENT PROTOCOL FS PRN (01:16)
[2020-04-06] MEDS ORDERED: Potassium Chloride 40 MEQ in Premix Bag 1 BAG IVPB PRN (01:16)
[2020-04-06] MEDS ORDERED: Magnesium Oxide 400 MG TAB PO PRN ×2 (01:16)
[2020-04-06] MEDS ORDERED: Potassium Phosphate 12 MMOL in Sodium Chloride 0.9% 250 ML 250 ML IV PRN (01:16)
[2020-04-06] MEDS: Sodium Chloride 0.9% 1,000 ML IV SCH ×3 (01:58→19:55)
[2020-04-06 04:26] LABS: Anion Gap 15 mmol/L (10-20); BUN (Urea Nitrogen) 55 mg/dL (8.4-25.7); Calc. Creatinine Clearance 54 mL/min (70-130); Calcium 8.2 mg/dL (7.8-10.44); Carbon Dioxide 20 mmol/L (23-31); Chloride 113 mmol/L (98-107); Estimated GFR-MDRD 47; Glucose 184 mg/dL (80-115); Magnesium 1.5 mg/dL (1.6-2.6); Potassium 3.4 mmol/L (3.5-5.1); Sodium 145 mmol/L (136-145)
[2020-04-06 04:34] LABS: Band 18 % (5-11); Hemoglobin 15.3 g/dL (14.0-18.0); Lymphocytes 5 % (21-51); MDiff Complete? YES; Mean Corpuscular HGB CONC 32.9 g/dL (32.0-36.0); Mean Corpuscular Hemoglobin 31.5 pg (27.0-31.0); Mean Corpuscular Volume 95.8 fL (78.0-98.0); Monocytes 10 % (0-10); Neutrophil 67 % (42-75); Platelet Count 146 thou/uL (130-400); Platelet Morphology Comment Appears Adequate; RBC Distribution Width 13.3 % (11.5-14.5); RBC Morphology Normal; Red Blood Cell (RBC) Count 4.85 mill/uL (4.70-6.10); White Blood Cell (WBC) Count 18.2 thou/uL (4.8-10.8)
--- NOTE | 2020-04-06 07:19 | RAD ---
PORTABLE CHEST 1 VIEW: DATE: 04/05/2020. TIME: 11:35 PM. HISTORY: Central line placement. FINDINGS/IMPRESSION: Comparison is made with earlier exam of 9:25 p.m. from the same date. There has been interval placement of a right subclavian central line with tip in the projection of th e cavoatrial junction. No pneumothoraces are seen. The remainder of the exam is otherwise stable. POS: SULEIMANA
[2020-04-06] MEDS: Aspirin Chewable 81 MG TAB PO SCH (10:14)
[2020-04-06] MEDS: Famotidine 20 MG TAB PO SCH ×2 (10:14→20:04)
[2020-04-06] MEDS: Clopidogrel Bisulfate 75 MG TAB PO SCH (10:14)
[2020-04-06] MEDS: Piperacillin/Tazobactam 3.375 GM in Sodium Chloride 0.9% 100 ML IVPB SCH ×4 (10:14→23:10)
[2020-04-06] MEDS: Polyethylene Glycol 3350 17 GM Packet PO SCH (10:15)
[2020-04-06] MEDS: Pregabalin 50 MG CAP PO SCH ×2 (10:15→20:04)
[2020-04-06] MEDS: Enoxaparin Sodium 30 MG/0.3 ML SYRINGE SC SCH (10:21)
[2020-04-06 10:44] LABS: SARS-CoV-2 MS2 Positive; SARS-CoV-2 N Gene Negative; SARS-CoV-2 S Gene Negative; SARS-CoV-2 orf1ab Negative
[2020-04-06] MEDS: Hydrocortisone Sod Succ/PF 100 mg/2 ml Vial IVP SCH ×3 (11:45→23:10)
[2020-04-06] MEDS: OLANZapine 2.5 MG TAB PO SCH (11:48)
[2020-04-06 12:16] LABS: Lactic Acid 2.8 mmol/L (0.5-2.2)
[2020-04-06] MEDS ORDERED: Meropenem 1 GM in Sodium Chloride 0.9% 100 ML IVPB SCH (14:00)
[2020-04-06] MEDS ORDERED: Meropenem 1 GM in Premix Bag 1 BAG IVPB SCH (14:00)
--- NOTE | 2020-04-06 14:38 | CON ---
DATE OF CONSULTATION: 04/06/2020 HISTORY OF PRESENT ILLNESS: A 64-year-old gentleman who is in the ICU, encephalopathic, who is on dopamine, blood pressure of 80 systolic. Comes into the hospital last night with worsening mental status change. Not able to get additional information at this time. No history of fall initial blood pressure 112/79, temperature 98, pulse 115, respirations 40, saturations 90% on room air in the ER. PAST MEDICAL HISTORY: Outlined pertinent for Parkinson disease, some kind of dyskinetic movement, history of coronary artery disease, myocardial infarction, history of dementia, history of anemia, history of renal failure, and BPH. PREVIOUS SURGERIES: Included CABG. He has some kind of a brain stimulator, chest pacemaker inserted. SOCIAL HISTORY: He lives in the assisted living in [place], [place]. MEDICATIONS: His list of medicines that are brought in from the senior care includes; 1. Lyrica 50. 2. Antivert. 3. Zestril 5. 4. Imdur 60. 5. Folic acid. 6. Plavix 75. 7. Coreg 3.125. 8. Carbidopa 4 times a day. 9. Lipitor 20. PHYSICAL EXAMINATION: VITAL SIGNS: Pulse 79, blood pressure he is clearly not verbally communicating. CHEST: Decreased breath sounds. No wheezing. CARDIAC: Normal S1, S2. ABDOMEN: Soft. NEUROLOGIC: Encephalopathic. HEENT: Pupils are equal. LABORATORY DATA: Creatinine 1.49. Chest x-ray is normal. Lactic acid is 4.2. White count 18,000, H and H are 15 and 46, platelet count 146, slight left shift, 67 segs, 18 bands. Urine shows wbc greater than 50. CT brain was negative, for encephalopathy. 1. History of brain stimulator with Parkinson disease. 2. probably urinary tract infection. 3. History of coronary artery disease, diabetes, azotemia. Contact family, let them to know the patient is in the hospital. He is a DNR. I agree with present broad-spectrum antibiotics, Zosyn. I may consider adding meropenem. Slightly stress dose of steroids. Continue hydration and Levophed. We will follow. Consultation note, 70 minutes, 50% direct patient care. Job ID: [id number]
[2020-04-06 14:55] VITALS: BMI 24.3
--- NOTE | 2020-04-06 17:53 | PDOC.HOSPP ---
- Subjective Encounter Date: 04/06/20 Encounter Time: 16:00 Subjective: The patient is more awake now. He was obtunded this morning and started waking up around 3:00 pm. He doesn't follow many commands. Per nursing, at baseline he has severe Parkinsons and does not really talk much or answer questions He was requiring levofed but has now been weaned off - Objective Vital Signs & Weight: Vital Signs (12 hours) Temp Pulse Ox 04/06/20 16:00 99.4 F 04/06/20 12:00 97.5 F L 04/06/20 09:00 97.0 F L 04/06/20 08:00 95 Weight Weight 169 lb 8.568 oz Most Recent Monitor Data Heart Rate from ECG 93 NIBP 137/70 NIBP BP-Mean 92 Respiration from ECG 20 SpO2 94 I&O: 04/05/20 04/06/20 04/07/20 06:59 06:59 06:59 Intake Total 652 Output Total 1000 Balance -348 Result Diagrams: 04/06/20 03:53 04/06/20 03:53 Hospitalist ROS - Review of Systems ROS unobtainable: due to mental status - Medication Medications: Active Medications Generic Name Dose Route Start Last Admin Trade Name Freq PRN Reason Stop Dose Admin Aspirin 81 mg 04/06/20 09:00 04/06/20 10:14 Aspirin Chewable PO 81 mg DAILY RENETTA Administration Clopidogrel Bisulfate 75 mg 04/06/20 09:00 04/06/20 10:14 Plavix PO 75 mg DAILY RENETTA Administration Enoxaparin Sodium 30 mg 04/06/20 09:00 04/06/20 10:21 Lovenox SC 30 mg 09 RENETTA Administration Famotidine 20 mg 04/06/20 09:00 04/06/20 10:14 Pepcid PO 20 mg BID RENETTA Administration Hydrocortisone Sodium Succinate 50 mg 04/06/20 12:00 04/06/20 17:26 Solu-Cortef IVP 50 mg Q6HR RENETTA Administration Piperacillin Sod/Tazobactam 100 mls @ 200 mls/hr 04/06/20 06:00 04/06/20 17: 08 Sod 3.375 gm/ Sodium Chloride IVPB 100 mls Q6HR RENETTA Administration Sodium Chloride 1,000 mls @ 125 mls/hr 04/06/20 01:00 04/06/20 10:19 Normal Saline 0.9% IV 1,000 mls .Q8H RENETTA Administration Meropenem 1 gm/ Device 100 mls @ 200 mls/hr 04/06/20 14:00 04/06/20 14:05 IVPB 100 mls Q8HR RENETTA Administration Magnesium Oxide 400 mg 04/06/20 01:16 04/06/20 17:07 Magnesium Oxide PO 400 mg BIDPRN PRN Administration FOR SERUM MAG 1.4 - 2.0 Olanzapine 2.5 mg 04/06/20 09:00 04/06/20 11:48 Zyprexa PO 2.5 mg DAILY RENETTA Administration Polyethylene Glycol 17 gm 04/06/20 09:00 04/06/20 10:15 Miralax PO 17 gm DAILY RENETTA Administration Potassium Chloride 40 meq 04/06/20 01:16 04/06/20 17:08 Klor-Con PER TUBE 40 meq ASDIR PRN Administration FOR SERUM K+ 2.5-3.5 Pregabalin 50 mg 04/06/20 09:00 04/06/20 10:15 Lyrica PO 50 mg BID RENETTA Administration Ranolazine 1,000 mg 04/06/20 09:00 04/06/20 10:15 Ranexa PO 1,000 mg BID RENETTA Administration - Exam General Appearance: NAD General - other findings: lethargic, does squeeze fingers Eye: PERRL, anicteric sclera ENT: normocephalic atraumatic, no oropharyngeal lesions Neck: no JVD Heart: RRR, no murmur, no gallops, no rubs Respiratory: CTAB, no wheezes, no rales, no ronchi Gastrointestinal: soft, non-tender, normal bowel sounds, no hepatomegaly Gastrointestinal - other findings: slightly distended Extremities: no cyanosis, no clubbing, no edema Skin: normal turgor, no lesions, no rashes Neurological: cranial nerve grossly intact, normal sensation to touch, no focal deficits, no new deficit Musculoskeletal: normal tone, normal strength, no muscle wasting Hosp A/P - Plan This is a 64 year old male who presented to the ER with altered mental status, admitted for septic shock secondary to UTI Acute encephalopathy secondray to septic shock secondary to UTI -febrile with elevated WBC and lactate of 4 requiring pressors. Lactate improving to 2.8 - continue IV fluids - blood cultures negative. Urine culture growing gram negative rods - flu panel negative - continue IV zosyn. WBC increased to 18, meropenem added by pulmonary and also given stress dose of steroids Dysphagia - NG tube placed Severe Parkinsons - continue carbidopa/levodopa Seizures - continue oxcarbazepine. Will check levels Hypokalemia - potassium 3.4, added 20 meq of potassium JOSE - creatinine improving, continue IV fluids Dispo: transfer to medical Code status: DNR/DNI
[2020-04-06] MEDS: MEROPENEM 1 GM/50 ML 1 GM in Premix Bag 1 BAG IVPB SCH (21:47)
[2020-04-07] MEDS: Sodium Chloride 0.9% 1,000 ML IV SCH ×3 (00:47→17:06)
[2020-04-07] MEDS: Hydrocortisone Sod Succ/PF 100 mg/2 ml Vial IVP SCH ×2 (05:17→20:26)
[2020-04-07] MEDS: MEROPENEM 1 GM/50 ML 1 GM in Premix Bag 1 BAG IVPB SCH (05:18)
[2020-04-07] MEDS: Piperacillin/Tazobactam 3.375 GM in Sodium Chloride 0.9% 100 ML IVPB SCH ×3 (05:26→17:06)
[2020-04-07] MEDS: Polyethylene Glycol 3350 17 GM Packet PO SCH (07:30)
[2020-04-07] MEDS: Famotidine 20 MG TAB PO SCH ×2 (07:30→20:25)
[2020-04-07] MEDS: Pregabalin 50 MG CAP PO SCH ×2 (07:30→20:25)
[2020-04-07] MEDS: hydrALAZINE 20 MG/ML VIAL SLOW IVP PRN (07:31)
[2020-04-07] MEDS: Enoxaparin Sodium 30 MG/0.3 ML SYRINGE SC SCH (07:32)
[2020-04-07] MEDS: Aspirin Chewable 81 MG TAB PO SCH (07:32)
[2020-04-07] MEDS: Clopidogrel Bisulfate 75 MG TAB PO SCH (07:32)
[2020-04-07 09:12] LABS: Anion Gap 13 mmol/L (10-20); BUN (Urea Nitrogen) 37 mg/dL (8.4-25.7); Calc. Creatinine Clearance 98 mL/min (70-130); Calcium 8.7 mg/dL (7.8-10.44); Carbon Dioxide 21 mmol/L (23-31); Chloride 116 mmol/L (98-107); Estimated GFR-MDRD Greater than 90; Glucose 148 mg/dL (80-115); Magnesium 1.9 mg/dL (1.6-2.6); Potassium 4.2 mmol/L (3.5-5.1); Sodium 146 mmol/L (136-145)
[2020-04-07 09:43] LABS: Band 16 % (5-11); Hemoglobin 14.1 g/dL (14.0-18.0); Lymphocytes 6 % (21-51); MDiff Complete? YES; Mean Corpuscular HGB CONC 32.6 g/dL (32.0-36.0); Mean Corpuscular Hemoglobin 31.3 pg (27.0-31.0); Mean Corpuscular Volume 95.8 fL (78.0-98.0); Mean Platelet Volume 8.7 fL (7.4-10.4); Monocytes 9 % (0-10); Neutrophil 69 % (42-75); Platelet Count 97 thou/uL (130-400); Platelet Morphology Comment Appears Decreased; RBC Distribution Width 13.2 % (11.5-14.5); Red Blood Cell (RBC) Count 4.51 mill/uL (4.70-6.10); White Blood Cell (WBC) Count 18.1 thou/uL (4.8-10.8)
--- NOTE | 2020-04-07 10:51 | CT ---
CT ABDOMEN NONCONTRAST CT PELVIS NONCONTRAST: (Urolithiasis protocol) DATE: 04/07/2020 HISTORY: 64-year-old male with urinary tract infection, sepsis, and leukocytosis. COMPARISON: 12/21/2013 TECHNIQUE: IV injection of iodinated contrast media: None Oral contrast media: None FINDINGS: Other than for urolithiasis, the lack of IV and oral contrast limits the evaluation. Broadly abutting posterior bilateral pleural surfaces, there are broad platelike thin airspace densit ies, probably representing dependent atelectasis. Nonspecific small patchy pulmonary densities at left lower lobe. Images of lungs degraded by patient breathing motion. Patient unable to suspend resp irations. New finding of distended gallbladder, but no mural thickening or pericholecystic edema. No renal, ureteral, or bladder calculus identified. Navarro catheter within urinary bladder with air-fluid level in the lumen. Diffuse moderate lobular mur al thickening of urinary bladder, new since prior study. Redundant sigmoid colon. New finding of small amount of fluid along bilateral paracolic gutters. No hydronephrosis. No small bowel dilation, pneumoperitoneum, or abscess identified. The cecum is in the right upper stella drant of the abdominal cavity, and what is probably a normal appendix is also visualized in the right upper quadrant. Mild anasarca. Within the limitations of a noncontrast scan, no gross abnormality identified involving liver, kidney s, abdominal aorta, adrenals, pancreas, or spleen. Small amount of fluid in presacral space. IMPRESSION: 1. Evidence for cystitis. 2. Small amount of fluid along bilateral paracolic gutters. This is nonspecific, but could represent minimal ascites. 3. Mild anasarca. 4. No urolithiasis or obstructive uropathy.
--- NOTE | 2020-04-07 12:06 | EKG ---
Test Reason : Blood Pressure : / mmHG Vent. Rate : 108 BPM Atrial Rate : 108 BPM P-R Int : 120 ms QRS Dur : 086 ms QT Int : 336 ms P-R-T Axes : 036 -53 088 degrees QTc Int : 450 ms Sinus tachycardia Left anterior fascicular block Nonspecific ST and T wave abnormality Abnormal ECG Confirmed by JONATHAN CALDERON ([id number]), news videotape editor LUIS PERRY ([id number]) on 04/07/2020 12:05:56 PM Referred By: Confirmed By:JONATHAN French
[2020-04-07] MEDS: Carbidopa/Levodopa 25-250 mg Tablet PO SCH ×3 (13:30→20:31)
[2020-04-07] MEDS: OLANZapine 2.5 MG TAB PO SCH (13:30)
--- NOTE | 2020-04-07 15:33 | PDOC.HOSPP ---
- Subjective Encounter Date: 04/07/20 Encounter Time: 11:55 Subjective: pt up in bed no complains. speech at bedside to evaluate pt. - Objective Vital Signs & Weight: Vital Signs (12 hours) Temp Pulse Resp BP BP Pulse Ox 04/07/20 10:45 98.0 F 89 20 144/100 H 93 L 04/07/20 08:45 161/90 H 04/07/20 07:31 90 186/109 H 04/07/20 07:02 98.6 F 90 18 186/109 H 93 L 04/07/20 03:53 97.9 F 65 18 123/75 92 L Weight Weight 172 lb Most Recent Monitor Data Heart Rate from ECG 93 NIBP 137/70 NIBP BP-Mean 92 Respiration from ECG 20 SpO2 94 I&O: 04/06/20 04/07/20 04/08/20 06:59 06:59 06:59 Intake Total 3595 Output Total 1960 Balance 1635 Result Diagrams: 04/07/20 08:44 04/07/20 08:44 Additional Labs: Accuchecks 04/07/20 10:52 POC Glucose 141 H Hospitalist ROS - Review of Systems Respiratory: denies: cough, dry, shortness of breath, hemoptysis, SOB with excertion, pleuritic pain, sputum, wheezing, other Cardiovascular: denies: chest pain, palpitations, orthopnea, paroxysmal noc. dyspnea, edema, light headedness, other Gastrointestinal: denies: nausea, vomiting, abdominal pain, diarrhea, constipation, melena, hematochezia, other - Medication Medications: Active Medications Generic Name Dose Route Start Last Admin Trade Name Freq PRN Reason Stop Dose Admin Acetaminophen 650 mg 04/06/20 00:49 04/06/20 19:58 Tylenol Elixir PO 650 mg Q6H PRN Administration Fever > 101 or Mild Pain Aspirin 81 mg 04/06/20 09:00 04/07/20 07:32 Aspirin Chewable PO 81 mg DAILY RENETTA Administration Carbidopa/Levodopa 1 tab 04/07/20 12:00 04/07/20 13:30 Sinemet 25-250 PO 1 tab Q4H RENETTA Administration Clopidogrel Bisulfate 75 mg 04/06/20 09:00 04/07/20 07:32 Plavix PO 75 mg DAILY RENETTA Administration Enoxaparin Sodium 30 mg 04/06/20 09:00 04/07/20 07:32 Lovenox SC 30 mg 0900 RENETTA Administration Famotidine 20 mg 04/06/20 09:00 04/07/20 07:30 Pepcid PO 20 mg BID RENETTA Administration Hydralazine HCl 10 mg 04/06/20 00:45 04/07/20 07:31 Apresoline SLOW IVP 10 mg Q6H PRN Administration SBP GREATER THAN 160 Piperacillin Sod/Tazobactam 100 mls @ 200 mls/hr 04/06/20 06:00 04/07/20 11: 54 Sod 3.375 gm/ Sodium Chloride IVPB 100 mls Q6HR RENETTA Administration Sodium Chloride 1,000 mls @ 125 mls/hr 04/06/20 01:00 04/07/20 05:25 Normal Saline 0.9% IV 1,000 mls .Q8H RENETTA Administration Olanzapine 2.5 mg 04/06/20 09:00 04/07/20 13:30 Zyprexa PO 2.5 mg DAILY RENETTA Administration Polyethylene Glycol 17 gm 04/06/20 09:00 04/07/20 07:30 Miralax PO 17 gm DAILY RENETTA Administration Pregabalin 50 mg 04/06/20 09:00 04/07/20 07:30 Lyrica PO 50 mg BID RENETTA Administration Ranolazine 1,000 mg 04/06/20 09:00 04/07/20 07:30 Ranexa PO 1,000 mg BID RENETTA Administration Sodium Chloride 10 ml 04/06/20 21:00 04/07/20 07:32 Flush - Normal Saline IVF 10 ml Q12HR RENETTA Administration - Exam Neck: negative: supple, symmetric, no JVD, no thyromegaly, no lymphadenopathy, no carotid bruit, JVD Heart: negative: RRR, no murmur, no gallops, no rubs, normal peripheral pulses, irregular, diminshed peripheral pulses, murmur present, II/IV, III/IV Respiratory: negative: CTAB, no wheezes, no rales, no ronchi, normal chest expansion, no tachypnea, normal percussion, rales, rhonchi, tachypneic, wheezes Gastrointestinal: negative: soft, non-tender, non-distended, normal bowel sounds , no palpable masses, no hepatomegaly, no splenomegaly, no bruit, no guarding, no rigidity, tender to palpation, distended, diminished bowl sounds, voluntary guarding Extremities: 1+ LE edema Neurological - other findings: awake and follows command Hosp A/P - Plan This is a 64 year old male who presented to the ER with altered mental status, admitted for septic shock secondary to UTI Acute encephalopathy secondray to septic shock secondary to UTI -febrile with elevated WBC and lactate of 4 requiring pressors. Lactate improving to 2.8 - continue IV fluids - blood cultures negative. Urine culture growing gram negative rods - flu panel negative - continue IV zosyn. WBC increased to 18, meropenem added by pulmonary and also given stress dose of steroids 04/07 significant leukocytes will do ct abd/pel, stop thor since his cx indicated Proteus will continue zosyn for now. will decrease his solucortef to bid. Dysphagia - NG tube placed 04/07 ng tube pulled per pt, speech to evaluate pt for swallow. Severe Parkinsons - continue carbidopa/levodopa Seizures - continue oxcarbazepine. Will check levels Hypokalemia - potassium 3.4, added 20 meq of potassium JOSE - creatinine improving, continue IV fluids Dispo: transfer to medical Code status: DNR/DNI
[2020-04-07] MEDS: hydrOXYzine 25 MG TAB PO SCH (20:25)
[2020-04-07] MEDS: OXcarbazepine 300 MG TAB PO SCH (20:25)
[2020-04-08] MEDS: Piperacillin/Tazobactam 3.375 GM in Sodium Chloride 0.9% 100 ML IVPB SCH ×4 (00:09→17:03)
[2020-04-08] MEDS: Sodium Chloride 0.9% 1,000 ML IV SCH ×3 (00:10→21:02)
[2020-04-08] MEDS: Carbidopa/Levodopa 25-250 mg Tablet PO SCH ×6 (00:10→21:00)
[2020-04-08 06:38] LABS: Band 4 % (5-11); Hemoglobin 13.3 g/dL (14.0-18.0); Hypochromia SLIGHT = 6-15 cells (100X) (0-5/hpf); Lymphocytes 11 % (21-51); MDiff Complete? YES; Mean Corpuscular HGB CONC 32.4 g/dL (32.0-36.0); Mean Corpuscular Volume 95.8 fL (78.0-98.0); Mean Platelet Volume 8.8 fL (7.4-10.4); Monocytes 16 % (0-10); Neutrophil 69 % (42-75); Platelet Count 102 thou/uL (130-400); Platelet Morphology Comment Appears Decreased; RBC Distribution Width 13.1 % (11.5-14.5); White Blood Cell (WBC) Count 14.3 thou/uL (4.8-10.8)
[2020-04-08 06:41] LABS: Anion Gap 12 mmol/L (10-20); BUN (Urea Nitrogen) 36 mg/dL (8.4-25.7); Calc. Creatinine Clearance 110 mL/min (70-130); Calcium 8.2 mg/dL (7.8-10.44); Carbon Dioxide 22 mmol/L (23-31); Chloride 116 mmol/L (98-107); Estimated GFR-MDRD Greater than 90; Glucose 117 mg/dL (80-115); Potassium 3.8 mmol/L (3.5-5.1); Sodium 146 mmol/L (136-145)
[2020-04-08] MEDS: Pregabalin 50 MG CAP PO SCH ×2 (07:56→21:01)
[2020-04-08] MEDS: OXcarbazepine 300 MG TAB PO SCH ×2 (07:56→21:01)
[2020-04-08] MEDS: Famotidine 20 MG TAB PO SCH ×2 (07:56→21:00)
[2020-04-08] MEDS: Aspirin Chewable 81 MG TAB PO SCH (07:56)
[2020-04-08] MEDS: Clopidogrel Bisulfate 75 MG TAB PO SCH (07:56)
[2020-04-08] MEDS: Hydrocortisone Sod Succ/PF 100 mg/2 ml Vial IVP SCH (07:57)
[2020-04-08] MEDS: hydrOXYzine 25 MG TAB PO SCH ×2 (07:57→21:00)
[2020-04-08] MEDS: Enoxaparin Sodium 30 MG/0.3 ML SYRINGE SC SCH (07:59)
[2020-04-08] MEDS: Polyethylene Glycol 3350 17 GM Packet PO SCH (07:59)
[2020-04-08 10:27] LABS: ALT (SGPT) Less than 7 U/L (8-55); AST (SGOT) 16 U/L (5-34); Albumin 3.2 g/dL (3.4-4.8); Alkaline Phosphatase 71 U/L (40-110); Bilirubin, Direct 0.4 mg/dL (0.1-0.3); Bilirubin, Total 0.8 mg/dL (0.2-1.2); Protein, Total 5.6 g/dL (5.8-8.1)
[2020-04-08] MEDS: OLANZapine 2.5 MG TAB PO SCH (12:35)
--- NOTE | 2020-04-08 12:45 | PDOC.HOSPP ---
- Subjective Encounter Date: 04/08/20 Encounter Time: 10:30 Subjective: pt up in bed no complains. PT at bedside to walk the patient. - Objective Vital Signs & Weight: Vital Signs (12 hours) Temp Pulse Resp BP Pulse Ox 04/08/20 08:00 92 L 04/08/20 07:00 97.7 F 87 18 142/82 H 92 L Weight Weight 174 lb 7.052 oz Most Recent Monitor Data Heart Rate from ECG 93 NIBP 137/70 NIBP BP-Mean 92 Respiration from ECG 20 SpO2 94 I&O: 04/07/20 04/08/20 04/09/20 06:59 06:59 06:59 Intake Total 3595 1550 Output Total 1960 1500 Balance 1635 50 Result Diagrams: 04/08/20 06:10 04/08/20 06:10 Additional Labs: Accuchecks 04/08/20 04/07/20 04/07/20 11:08 19:28 16:00 POC Glucose 125 H 117 H 137 H Hospitalist ROS - Review of Systems Cardiovascular: denies: chest pain, palpitations, orthopnea, paroxysmal noc. dyspnea, edema, light headedness, other Gastrointestinal: denies: nausea, vomiting, abdominal pain, diarrhea, constipation, melena, hematochezia, other Genitourinary: denies: dysuria, frequency, incontinence, hematuria, retention, other - Medication Medications: Active Medications Generic Name Dose Route Start Last Admin Trade Name Freq PRN Reason Stop Dose Admin Acetaminophen 650 mg 04/06/20 00:49 04/06/20 19:58 Tylenol Elixir PO 650 mg Q6H PRN Administration Fever > 101 or Mild Pain Aspirin 81 mg 04/06/20 09:00 04/08/20 07:56 Aspirin Chewable PO 81 mg DAILY RENETTA Administration Carbidopa/Levodopa 1 tab 04/07/20 12:00 04/08/20 07:55 Sinemet 25-250 PO 1 tab Q4H RENETTA Administration Clopidogrel Bisulfate 75 mg 04/06/20 09:00 04/08/20 07:56 Plavix PO 75 mg DAILY RENETTA Administration Enoxaparin Sodium 30 mg 04/06/20 09:00 04/08/20 07:59 Lovenox SC 30 mg 0900 RENETTA Administration Famotidine 20 mg 04/06/20 09:00 04/08/20 07:56 Pepcid PO 20 mg BID RENETTA Administration Hydralazine HCl 10 mg 04/06/20 00:45 04/07/20 07:31 Apresoline SLOW IVP 10 mg Q6H PRN Administration SBP GREATER THAN 160 Hydroxyzine HCl 25 mg 04/07/20 21:00 04/08/20 07:57 Atarax PO 25 mg BID RENETTA Administration Piperacillin Sod/Tazobactam 100 mls @ 200 mls/hr 04/06/20 06:00 04/08/20 12: 36 Sod 3.375 gm/ Sodium Chloride IVPB 100 mls Q6HR RENETTA Administration Sodium Chloride 1,000 mls @ 125 mls/hr 04/06/20 01:00 04/08/20 12:36 Normal Saline 0.9% IV 1,000 mls .Q8H RENETTA Administration Isosorbide Mononitrate 60 mg 04/08/20 09:00 04/08/20 07:57 Imdur PO 60 mg DAILY RENETTA Administration Olanzapine 2.5 mg 04/06/20 09:00 04/08/20 12:35 Zyprexa PO 2.5 mg DAILY RENETTA Administration Oxcarbazepine 300 mg 04/07/20 21:00 04/08/20 07:56 Trileptal PO 300 mg BID RENETTA Administration Polyethylene Glycol 17 gm 04/06/20 09:00 04/08/20 07:59 Miralax PO 17 gm DAILY RENETTA Administration Pregabalin 50 mg 04/06/20 09:00 04/08/20 07:56 Lyrica PO 50 mg BID RENETTA Administration Ranolazine 1,000 mg 04/06/20 09:00 04/08/20 07:55 Ranexa PO 1,000 mg BID RENETTA Administration Sertraline HCl 25 mg 04/08/20 09:00 04/08/20 07:56 Zoloft PO 25 mg DAILY RENETTA Administration Sodium Chloride 10 ml 04/06/20 21:00 04/08/20 08:00 Flush - Normal Saline IVF 10 ml Q12HR RENETTA Administration - Exam Neck: negative: supple, symmetric, no JVD, no thyromegaly, no lymphadenopathy, no carotid bruit, JVD Heart: negative: RRR, no murmur, no gallops, no rubs, normal peripheral pulses, irregular, diminshed peripheral pulses, murmur present, II/IV, III/IV Respiratory: negative: CTAB, no wheezes, no rales, no ronchi, normal chest expansion, no tachypnea, normal percussion, rales, rhonchi, tachypneic, wheezes Gastrointestinal: negative: soft, non-tender, non-distended, normal bowel sounds , no palpable masses, no hepatomegaly, no splenomegaly, no bruit, no guarding, no rigidity, tender to palpation, distended, diminished bowl sounds, voluntary guarding Hosp A/P - Plan This is a 64 year old male who presented to the ER with altered mental status, admitted for septic shock secondary to UTI Acute encephalopathy secondray to septic shock secondary to UTI -febrile with elevated WBC and lactate of 4 requiring pressors. Lactate improving to 2.8 - continue IV fluids - blood cultures negative. Urine culture growing gram negative rods - flu panel negative - continue IV zosyn. WBC increased to 18, meropenem added by pulmonary and also given stress dose of steroids 04/07 significant leukocytes will do ct abd/pel, stop thor since his cx indicated Proteus will continue zosyn for now. will decrease his solucortef to bid. 04/08 solucortef stopped bp is now stable. wbc improving. No urinary stone noted on ct. Dysphagia - NG tube placed 04/07 ng tube pulled per pt, speech to evaluate pt for swallow. Severe Parkinsons - continue carbidopa/levodopa Seizures - continue oxcarbazepine. Will check levels Hypokalemia - potassium 3.4, added 20 meq of potassium JOSE - creatinine improving, continue IV fluids Dispo: transfer to medical Code status: DNR/DNI
[2020-04-09] MEDS ORDERED: Lorazepam 2 MG/ML VIAL SLOW IVP SCH (00:15)
[2020-04-09] MEDS: Piperacillin/Tazobactam 3.375 GM in Sodium Chloride 0.9% 100 ML IVPB SCH ×3 (00:20→13:18)
[2020-04-09] MEDS: Carbidopa/Levodopa 25-250 mg Tablet PO SCH ×5 (00:20→15:24)
[2020-04-09] MEDS: Sodium Chloride 0.9% 1,000 ML IV SCH (05:06)
[2020-04-09 09:17] LABS: #Basophils 0.1 thou/uL (0.0-0.2); #Eosinphils 0.3 thou/uL (0.0-0.7); #Lymphocytes 1.4 thou/uL (1.20-3.40); #Monocytes 0.5 thou/uL (0.11-0.59); #Neutrophils 6.2 thou/uL (1.40-6.50); %Basophils 0.6 % (0.0-1.0); %Eosinophils 3.7 % (0.0-10.0); %Lymphocytes 16.5 % (21.0-51.0); %Monocytes 5.8 % (0.0-10.0); %Neutrophils 73.4 % (42.0-75.0); Hemoglobin 13.4 g/dL (14.0-18.0); Mean Corpuscular HGB CONC 32.4 g/dL (32.0-36.0); Mean Corpuscular Hemoglobin 30.7 pg (27.0-31.0); Mean Corpuscular Volume 94.9 fL (78.0-98.0); Mean Platelet Volume 8.4 fL (7.4-10.4); Platelet Count 107 thou/uL (130-400); RBC Distribution Width 12.9 % (11.5-14.5); Red Blood Cell (RBC) Count 4.36 mill/uL (4.70-6.10); White Blood Cell (WBC) Count 8.5 thou/uL (4.8-10.8)
[2020-04-09 09:33] LABS: Anion Gap 12 mmol/L (10-20); BUN (Urea Nitrogen) 26 mg/dL (8.4-25.7); Calc. Creatinine Clearance 136 mL/min (70-130); Carbon Dioxide 25 mmol/L (23-31); Chloride 116 mmol/L (98-107); Estimated GFR-MDRD Greater than 90; Glucose 81 mg/dL (80-115); Potassium 3.6 mmol/L (3.5-5.1); Sodium 149 mmol/L (136-145)
[2020-04-09] MEDS: hydrALAZINE 20 MG/ML VIAL SLOW IVP PRN (09:54)
[2020-04-09] MEDS: Clopidogrel Bisulfate 75 MG TAB PO SCH (10:44)
[2020-04-09] MEDS: OXcarbazepine 300 MG TAB PO SCH (10:44)
[2020-04-09] MEDS: Aspirin Chewable 81 MG TAB PO SCH (10:44)
[2020-04-09] MEDS: Famotidine 20 MG TAB PO SCH (10:44)
[2020-04-09] MEDS: hydrOXYzine 25 MG TAB PO SCH (10:44)
[2020-04-09] MEDS: OLANZapine 2.5 MG TAB PO SCH (10:45)
[2020-04-09] MEDS: Pregabalin 50 MG CAP PO SCH (10:45)
[2020-04-09] MEDS: Polyethylene Glycol 3350 17 GM Packet PO SCH (10:50)
[2020-04-09] MEDS ORDERED: Dextrose 5% in Water 500 ML IV SCH ×2 (11:00→15:30)
--- NOTE | 2020-04-09 11:05 | PRG ---
DATE OF SERVICE: 04/09/2020 SUBJECTIVE: Pedro Cleary remains encephalopathic, but no respiratory distress. OBJECTIVE: VITAL SIGNS: His temperature 97, pulse 86, saturation 92% on room air, respiratory rate 18, and blood pressure is elevated 184/109. CHEST: Decreased breath sounds. No wheezing. CARDIAC: Normal S1 and S2. No gallops. ABDOMEN: No mass. LABORATORY DATA: X-ray looks unremarkable. White count 8000. ASSESSMENT: Status post Parkinson disease, encephalopathy, bradycardia. PLAN: Pulmonary law, he is stable enough. Pulmonary will follow at a distance. He is on no antibiotics. He can probably be transferred out of the hospital back to residential. Job ID: [id number]
[2020-04-09] MEDS: Enoxaparin Sodium 30 MG/0.3 ML SYRINGE SC SCH (11:14)
[2020-04-09 13:39] VITALS: BP 123/80
[2020-04-09 15:54] LABS: Anion Gap 11 mmol/L (10-20); BUN (Urea Nitrogen) 22 mg/dL (8.4-25.7); Calc. Creatinine Clearance 132 mL/min (70-130); Calcium 8.1 mg/dL (7.8-10.44); Carbon Dioxide 24 mmol/L (23-31); Chloride 114 mmol/L (98-107); Estimated GFR-MDRD Greater than 90; Glucose 94 mg/dL (80-115); Potassium 3.4 mmol/L (3.5-5.1); Sodium 146 mmol/L (136-145)
[2020-04-09 17:01] VITALS: TEMP 98.6
[2020-04-09] MEDS ORDERED: Furosemide 40 MG TAB PO SCH (17:15)
[2020-04-09] MEDS ORDERED: Cefdinir 300 MG CAP PO SCH (21:00)
--- NOTE | 2020-04-10 03:21 | DIS ---
DATE OF ADMISSION: 04/06/2020 DATE OF DISCHARGE: 04/09/2020 DISCHARGE DIAGNOSES: 1. Acute metabolic encephalopathy secondary to urinary tract infection. 2. Septic shock, resolved. 3. Urinary tract infection from Proteus mirabilis. 4. Dysphagia. 5. Severe Parkinson's. 6. Seizures. 7. Hypokalemia. 8. Hypernatremia. HISTORY OF PRESENT ILLNESS: The patient is a 64-year-old male, who presents to the hospital initially with change in mental status. He is a long term resident. Please refer to H and P for further details. Given his low blood pressure, he underwent a central line placement and was started initially on Levophed. We did do a CT abdomen and pelvis, which indicated he has evidence of cystitis, small amount of fluid along the bilateral paracolic gutters, mild anasarca. No ureterolithiasis or obstructive uropathy was noted. At this time, the patient continued to improve. He was also put on Solu-Cortef. The patient's Solu-Cortef was discontinued. He was watched 24 hours and his blood pressure has been stable. He will be discharged home. He will follow up with his primary, initially was on broad-spectrum antibiotics, which was tapered down to Zosyn, which was then tapered to oral antibiotics, which is going to be cefdinir since he has Proteus mirabilis, which is sensitive to the cephalosporin. The patient will get a total treatment of 10 days. His Navarro has been discontinued. The patient was noted to hypernatremia. He is currently on a thick liquid diet. We will communicate with the long term to recheck a BNP since his sodium was 149 upon discharge. I have encouraged him to drink more water; however I think it is difficult for the patient since its thickened liquid. The patient at this time will be discharged home. He will follow up with his primary. Also, his acute kidney injury has resolved. HOME MEDICATIONS: Will be as of the followin. He is going to be on Plavix 75 mg daily. 2. Isosorbide 60 mg daily. 3. Coreg 3.125 twice daily. 4. Atorvastatin 20 mg daily. 5. Ranexa 1000 mg twice daily. 6. He is on Trileptal. 7. He is on olanzapine 2.5 mg daily. 8. Carbidopa levodopa 1 p.o. q.4 hours. 9. Cefdinir 300 mg b.i.d. 10. Aspirin 81 mg daily. 11. Humalog per sliding scale. 12. Metformin 500 mg q.a.m. 13. Hydroxyzine 25 mg twice daily. PHYSICAL EXAMINATION: VITAL SIGNS: Temperature 98.6, 90, 123/80, 97% on room air. GENERAL: He is awake, alert, and oriented x3. He does not appear in distress CV: S1, S2 present. No murmurs, rubs, gallops. ABDOMEN: Soft and nontender. Bowel sounds are present x2. EXTREMITIES: The patient has been walked with therapy. He needs significant guidance to take steps. He has obvious signs of Parkinson's. DISCHARGE INSTRUCTIONS: Diet: He has a pureed diet with thickened liquids. RECOMMENDATIONS: I did recommend to follow up with [facility] for hypernatremia. Job ID: [id number]
[2020-04-10] MEDS ORDERED: Saccharomyces boulardii 250 MG CAP PO SCH (09:00)
== END 2020-04-09 18:32 | DRG 871 ==
LOC: ERS 20:39 → ERHOLD 04-06 00:23 → CCU 04-06 08:04 → T4-A 04-06 18:15
PROVIDERS: ADMIT Internal Medicine; ATTEND Internal Medicine
PROC: 3E043XZ Introduction of Vasopressor into Central Vein, Percutaneous Approach (ICD-10-PCS; principal; 2020-04-06)
PROC: 02HV33Z Insertion of Infusion Device into Superior Vena Cava, Percutaneous Approach (ICD-10-PCS; 2020-04-06)
DX: A41.59 Other Gram-negative sepsis (principal); G93.41 Metabolic encephalopathy; R65.21 Severe sepsis with septic shock; Z66 Do not resuscitate; Z20.828 Contact with and (suspected) exposure to other viral communicable diseases; N17.9 Acute kidney failure, unspecified; E87.0 Hyperosmolality and hypernatremia; E78.5 Hyperlipidemia, unspecified; G20 Parkinson's disease; I25.10 Atherosclerotic heart disease of native coronary artery without angina pectoris; F02.80 Dementia in other diseases classified elsewhere, unspecified severity, without behavioral disturbance, psychotic disturbance, mood disturbance, and anxiety; N40.0 Benign prostatic hyperplasia without lower urinary tract symptoms; R13.10 Dysphagia, unspecified; N30.90 Cystitis, unspecified without hematuria; N18.2 Chronic kidney disease, stage 2 (mild); E11.22 Type 2 diabetes mellitus with diabetic chronic kidney disease; I12.9 Hypertensive chronic kidney disease with stage 1 through stage 4 chronic kidney disease, or unspecified chronic kidney disease; G40.909 Epilepsy, unspecified, not intractable, without status epilepticus; D51.9 Vitamin B12 deficiency anemia, unspecified; F32.9 Major depressive disorder, single episode, unspecified; E87.6 Hypokalemia; R00.1 Bradycardia, unspecified; I25.2 Old myocardial infarction; Z95.1 Presence of aortocoronary bypass graft; Z95.0 Presence of cardiac pacemaker; Z96.82 Presence of neurostimulator; Z78.1 Physical restraint status; Z79.899 Other long term (current) drug therapy; Z79.82 Long term (current) use of aspirin; Z79.4 Long term (current) use of insulin
CPT/HCPCS: 36415; 36416; 36556; 51702; 70450; 71045; 74176; 80048; 80053; 80076; 81003; 81015; 82533; 82553; 83605; 83690; 83735; 84484; 85025; 87040; 87077; 87086; 87186; 87635; 87804; 93005; 94760; 96361; 96365; 96366; 96367; J0360; J0692; J1650; J1720; J2060; J2185; J2543; J3370; J3490; P9045; U0003